=== PATIENT | female | born 1955 | race Caucasian/White ===

== ENCOUNTER 2022-05-28 09:07 | Outpatient (REF) | payer MEDICARE, MEDICAID, SELFPAY ==
[2022-05-28 11:20] LABS: MANUAL DIFF FLAG NO
[2022-05-28 11:43] LABS: Basophils Absolute Auto 0.1 X10*3/uL (0.0-0.2); Basophils Percent Auto 1.3 % (0-2); Eosinophils Absolute Auto 0.2 X10*3/uL (0.0-0.4); Eosinophils Percent Auto 4.3 % (0-4); Hemoglobin 13.1 g/dl (12.0-16.0); Imm Gran Abs Auto 0.02 X10*3/uL (0.00-0.03); Imm Gran Pct Auto 0.4 % (0.0-0.4); Lymphocytes Absolute Auto 1.4 X10*3/uL (1.2-4.9); Lymphocytes Percent Auto 30.5 % (20-40); Mean Corpuscular HGB Conc 32.8 g/dl (31.0-35.0); Mean Corpuscular Hemoglobin 29.4 pg (27.0-33.0); Mean Corpuscular Volume 89.7 fL (80.0-98.0); Mean Platelet Volume 8.9 fL (9.4-12.3); Monocytes Absolute Auto 0.3 X10*3/uL (0.1-1.2); Monocytes Percent Auto 7.3 % (2-11); Neutrophils Absolute Auto 2.6 x10*3/uL (2.0-8.3); Neutrophils Percent Auto 56.2 % (45-73); Platelet Count 352 X10*3/uL (160-400); Red Blood Count 4.46 X10*6/uL (4.20-5.50); Red Cell Distribution Width 12.6 % (11.0-16.0); White Blood Count 4.7 X10*3/uL (4.8-10.8)
[2022-05-28 11:57] LABS: Alanine Aminotransferase 10 U/L (0-31); Albumin Level 4.5 g/dL (3.5-5.0); Alkaline Phosphatase 55 U/L (39-117); Anion Gap 17 (12-20); Aspartate Amino Transferase 15 U/L (5-31); Bilirubin Total 0.4 mg/dL (0.0-1.0); Blood Urea Nitrogen 20 mg/dL (9-16); Calcium 9.5 mg/dL (8.4-10.2); Carbon Dioxide 24 mmol/L (22-29); Chloride 97 mmol/L (96-108); Cholesterol 193 mg/dL; Estimated Glomerular Filt Rate 50; Glucose Fasting 97 mg/dL (60-99); HDL Cholesterol 80 mg/dL; LDL Cholesterol Calculated 101 mg/dl; Potassium 4.8 mmol/L (3.3-5.1); Sodium 133 mmol/L (135-145); Total Protein 6.9 g/dL (6.5-8.0); Triglycerides 63 mg/dL
== END 2022-05-28 09:08 | disposition home or self-care (01) ==
LOC: HO.HMGCLDS 09:07
PROVIDERS: PCP Internal Medicine; Visit Provider Internal Medicine
DX: E78.5 Hyperlipidemia, unspecified (principal); I10 Essential (primary) hypertension; I73.9 Peripheral vascular disease, unspecified; Z85.3 Personal history of malignant neoplasm of breast
CPT/HCPCS: 36415; 80053; 80061; 82306; 85025

== ENCOUNTER 2022-11-09 10:02 | Outpatient (REF) | payer MEDICARE, MEDICAID, SELFPAY ==
[2022-11-09 11:39] LABS: MANUAL DIFF FLAG NO
[2022-11-09 11:50] LABS: Basophils Absolute Auto 0.1 X10*3/uL (0.0-0.2); Basophils Percent Auto 1.9 % (0-2); Eosinophils Absolute Auto 0.2 X10*3/uL (0.0-0.4); Eosinophils Percent Auto 5.7 % (0-4); Hematocrit 38.6 % (37.0-47.0); Hemoglobin 12.5 g/dl (12.0-16.0); Imm Gran Abs Auto 0.02 X10*3/uL (0.00-0.03); Imm Gran Pct Auto 0.5 % (0.0-0.4); Lymphocytes Absolute Auto 1.4 X10*3/uL (1.2-4.9); Lymphocytes Percent Auto 32.2 % (20-40); Mean Corpuscular HGB Conc 32.4 g/dl (31.0-35.0); Mean Corpuscular Hemoglobin 28.5 pg (27.0-33.0); Mean Corpuscular Volume 88.1 fL (80.0-98.0); Mean Platelet Volume 9.7 fL (9.4-12.3); Monocytes Absolute Auto 0.4 X10*3/uL (0.1-1.2); Monocytes Percent Auto 8.5 % (2-11); Neutrophils Absolute Auto 2.2 x10*3/uL (2.0-8.3); Neutrophils Percent Auto 51.2 % (45-73); Platelet Count 285 X10*3/uL (160-400); Red Blood Count 4.38 X10*6/uL (4.20-5.50); Red Cell Distribution Width 14.4 % (11.0-16.0); White Blood Count 4.2 X10*3/uL (4.8-10.8)
[2022-11-09 12:21] LABS: Alanine Aminotransferase 19 U/L (0-31); Anion Gap 12 (12-20); Aspartate Amino Transferase 20 U/L (5-31); Blood Urea Nitrogen 15 mg/dL (9-16); Calcium 9.2 mg/dL (8.4-10.2); Carbon Dioxide 24 mmol/L (22-29); Chloride 105 mmol/L (96-108); Cholesterol 195 mg/dL; Estimated Glomerular Filt Rate 56; Glucose Fasting 95 mg/dL (60-99); HDL Cholesterol 96 mg/dL; LDL Cholesterol Calculated 88 mg/dl; Potassium 4.5 mmol/L (3.3-5.1); Sodium 136 mmol/L (135-145); Triglycerides 58 mg/dL
== END 2022-11-09 10:03 | disposition home or self-care (01) ==
LOC: HO.HMGCLDS 10:02
PROVIDERS: PCP Internal Medicine; Visit Provider Internal Medicine
DX: I73.9 Peripheral vascular disease, unspecified (principal); I10 Essential (primary) hypertension; E78.5 Hyperlipidemia, unspecified
CPT/HCPCS: 36415; 80048; 80061; 84450; 84460; 85025

== ENCOUNTER 2023-03-04 09:20 | Outpatient (AMB) | payer MEDICARE, MEDICAID, SELFPAY ==
--- NOTE | 2023-03-04 09:21 | MHC.PC.OV ---
Vital Signs 03/04/23 09:23 BMI Reason not done Patient refused/unable BP 132/96 H Blood Pressure Location Lt brachial Position Sitting Pulse 73 Pulse Source Pulse Oximeter Pulse Oximetry (%) 99 Oxygen Delivery Method Room Air Intake Visit Reasons: [facility]-02/08-02/19-Closed fracture R leg Intake Note: Pt is here today to rehap f/u of a fracture R leg Allergies ceftriaxone Adverse Reaction (Verified 03/04/23 09:30) rash Medication List - Last Reconciled 03/04/23 by Wilma Reyes MD acetaminophen 1,000 mg PO Q6H PRN aspirin 325 mg PO DAILY atorvastatin 40 mg PO BEDTIME clopidogrel 75 mg PO DAILY doxycycline hyclate 100 mg PO BID metoprolol succinate ER 25 mg PO DAILY paroxetine HCl 20 mg PO DAILY Tobacco use date assessed: 03/04/23 Fall risk assessment: 1 Fall in past year Last assessed Fall Risk: 03/04/23 Dental Screening Dental Screen Date: 03/04/23 Did you have a dental visit in the last 12 months?: No Was dental information given to patient?: Patient declined HPI [facility]-02/08-02/19-Closed fracture R leg HPI Details 67-year-old lady with medical is history significant for hypertension, dyslipidemia, generalized anxiety disorder, peripheral vascular disease with iliac stent placement 2020, COPD and recently admitted for treatment of trimalleolar fracture in right ankle , here today for hospital follow-up. She underwent right ankle open reduction internal fixation on 01/2028, later found to be in atrial fibrillation with RVR and started on metoprolol 25 mg, and underwent a. successful MARTINA cardioversion on 02/07/2023. She was then started on Eliquis 5 mg b.i.d., in addition to her current dose of clopidogrel 75 mg daily, but she started having severe abdominal pain with passing bright red blood together with her stool . She also started having frequent spontaneous hematomas. Eliquis was discontinued and was maintained only on clopidogrel and started on aspirin 325 mg daily. She states that the bleed has stopped and her ecchymosis are slowly fainting, but she still feels weak and gets easily short of breath on exertion. . Her Blood pressure on metoprolol 25 mg once a day only has been running from between 144/88 to 118/68 with heart rate 63-87, over the last week PFSH Medical History Atrial fibrillation status post cardioversion Cervical cancer screening Dyslipidemia Eczema Essential hypertension Generalized anxiety disorder History of eczema History of PFTs History of vaginal dysplasia Hx of malignant neoplasm of breast Hypochromic anemia Mass of left lung PAD (peripheral artery disease) Personal history of long-term (current) use of anticoagulants Trimalleolar fracture of right ankle Unspecified atrial fibrillation Surgical History H/O vulvectomy Hx of colonoscopy S/P breast lumpectomy Status post ORIF of fracture of ankle Family History Mother Substance use disorder Mental health disorder Brother Essential hypertension Social History Housing: Apartment Patient Tobacco Use Status: Former Tobacco user e-Cigarette/Vaping Use: Never Used Current occupational status: retired Cognitive needs: No Hearing needs: No Vision needs: Yes Questionnaire Thrive Questionnaire Date Thrive assessed: 10/22/22 AUDIT C Alcohol Use Questionnaire (AUDIT-C) 1. How often do you have a drink containing alcohol?: Never Total Score: 0 BASIM-7 AMB Questionnaire BASIM-7 Date BASIM - 7 assessed: 10/22/22 Source: Developed by Drs. Luis Herrera, Destini Matias, Renny Esquivel and colleagues, with an educational inocencia from [employer]. Review of Systems Const Denies body aches, Denies fever(s), Denies headache(s) and Denies lethargy Eyes Denies change in vision ENT Reports no additional complaints, Reports dizziness and Denies headache(s) Card Denies chest pain, Denies lightheadedness and Denies dyspnea Resp Denies chest congestion and Denies dyspnea GI Denies abdominal pain, Denies change in bowel habits and Denies heartburn Denies urinary frequency, Denies dysuria and Denies urinary urgency Musc Reports no additional complaints and Denies tingling Skin/Breast Reports as per HPI Neuro Reports dizziness, Denies headache(s), Denies seizure-like activity and Denies tingling Psych Reports no additional complaints Endo Reports no additional complaints Syed/Lymph Reports no additional complaints Physical exam (Primary Care) Vital Signs: Last Vital Signs Pulse 73 03/04/23 09:23 BP 132/96 H 03/04/23 09:23 Pulse Ox 99 03/04/23 09:23 Oxygen Delivery Method Room Air 03/04/23 09:23 Tobacco/Smoking Status: Tobacco use Status Tobacco use date assessed 03/04/23 03/04/23 09:32 Patient Tobacco Use Status Former Tobacco user 03/04/23 09:32 e-Cigarette/Vaping Use Never Used 03/04/23 09:32 Thrive Assessment: Date of Thrive Assessment Date Thrive assessed 10/22/22 03/04/23 09:32 Advance Care Planning discussion: Completed/Scanned Date of discussion: 03/04/23 Who was present: patient/niece Forms completed: MOLST Time spent: 16-45 minutes Actual minutes spent: 16 Const General: comfortable, no acute distress, alert and awake Nutritional Appearance: average body habitus Orientation/consciousness: patient oriented x3 HENMT Face and sinus: Yes face symmetric Mouth: moist mucous membranes Eyes General: appearance normal, both eyes and all related structures Neck Neck: Yes full ROM, Yes no lymphadenopathy and Yes supple Resp Effort & Inspection: normal respiratory effort and able to speak in complete sentences Auscultation: clear to auscultation bilaterally Cardio Rate: regular rate Rhythm: regular rhythm Heart sounds: S1 normal heart sound present and S2 normal heart sound present GI Palpation (GI): Soft to palpation, nontender, no guarding and no masses Auscultation: normal bowel sounds Neuro General: patient oriented x3, moves all extremities, Normal light touch and pain sensation, no focal motor deficits and CN's II-XI intact bilaterally Extrem General: Yes full ROM, Yes no joint enlargement, Yes no pedal edema and Yes no calf tenderness Assessment and Plan Assessment & Plan (1) Unspecified atrial fibrillation: Code(s): I48.91 - Unspecified atrial fibrillation Plan: EKG done today showed normal sinus rhythm with no acute ST-T changes. Continued on metoprolol, Eliquis on hold due to GI bleed currently taking clopidogrel and aspirin 325 mg daily., cardiology consult obtained (2) Hypochromic anemia: Code(s): D50.9 - Iron deficiency anemia, unspecified Plan: Will repeat another CBC , vitamin B12 and iron profile (3) Trimalleolar fracture of right ankle: Code(s): S82.851A - Displaced trimalleolar fracture of right lower leg, initial encounter for closed fracture Plan: Followed by Dr. Crump at [facility] for further evaluation management. Currently getting physical therapy (4) Generalized anxiety disorder: Code(s): F41.1 - Generalized anxiety disorder Plan: Continue with paroxetine HCL 20 mg daily (5) PAD (peripheral artery disease): Comment: History of iliac stent placement in 2020 Code(s): I73.9 - Peripheral vascular disease, unspecified Plan: Currently on clopidogrel and 325 mg of aspirin daily (6) Dyslipidemia: Code(s): E78.5 - Hyperlipidemia, unspecified Plan: She had with atorvastatin 40 mg at bedtime (7) Essential hypertension: Code(s): I10 - Essential (primary) hypertension Plan: Blood pressure at goal of less than 130/80. Continue with current medication. Reinforced importance of following a low sodium diet, getting regular exercise, and lowering stress levels. (8) Postmenopause: Code(s): Z78.0 - Asymptomatic menopausal state Plan: Continue with staying active, taking adequate sources of calcium through dietary sources and take [id number] vitamin D3 at 2000 units daily. Orders: Orders Vitamin B12 and Folate 03/04/23 D50.9 - Iron deficiency anemia, unspecified, S82.851A - Displaced trimalleolar fracture of right lower leg, initial encounter for closed fracture, Z78.0 - Asymptomatic menopausal state IRON PROFILE 03/04/23 D50.9 - Iron deficiency anemia, unspecified, S82.851A - Displaced trimalleolar fracture of right lower leg, initial encounter for closed fracture, Z78.0 - Asymptomatic menopausal state Vitamin D 25-OH Total 03/04/23 D50.9 - Iron deficiency anemia, unspecified, S82.851A - Displaced trimalleolar fracture of right lower leg, initial encounter for closed fracture, Z78.0 - Asymptomatic menopausal state Complete Blood Count Auto Diff 03/04/23 D50.9 - Iron deficiency anemia, unspecified, S82.851A - Displaced trimalleolar fracture of right lower leg, initial encounter for closed fracture, Z78.0 - Asymptomatic menopausal state AMB EKG-In Office 03/04/23 I48.91 - Unspecified atrial fibrillation Referrals Cardiology Referral I48.91 - Unspecified atrial fibrillation, I73.9 - Peripheral vascular disease, unspecified Coding Level of Care Code Est Pt Level 4 (12826) Diagnoses Unspecified atrial fibrillation I48.91 Hypochromic anemia D50.9 Trimalleolar fracture of right ankle S82.851A Generalized anxiety disorder F41.1 PAD (peripheral artery disease) I73.9 Dyslipidemia E78.5 Essential hypertension I10 Postmenopause Z78.0 Additional Codes Vital Signs *Quality* - Advance Care Planning discussion: Completed/Scanned ([id number]) Vital Signs *Quality* - Time spent: 16-45 minutes ([id number])
[2023-03-04 09:23] VITALS: BP 132/96; PULSE 73; O2SAT 99
== END 2023-03-04 11:04 | disposition home or self-care (01) ==
PROVIDERS: PCP Internal Medicine; Visit Provider Internal Medicine
DX: I48.91 Unspecified atrial fibrillation (principal); S82.851A Displaced trimalleolar fracture of right lower leg, initial encounter for closed fracture; I73.9 Peripheral vascular disease, unspecified; Z71.89 Other specified counseling; I10 Essential (primary) hypertension; D50.9 Iron deficiency anemia, unspecified; F41.1 Generalized anxiety disorder; E78.5 Hyperlipidemia, unspecified; Z78.0 Asymptomatic menopausal state
CPT/HCPCS: 93000; 99214; 99497

== ENCOUNTER 2023-03-04 10:10 | Outpatient (REF) | payer MEDICARE, MEDICAID, SELFPAY ==
[2023-03-04 13:20] LABS: MANUAL DIFF FLAG NO
[2023-03-04 13:52] LABS: Basophils Absolute Auto 0.1 X10*3/uL (0.0-0.2); Basophils Percent Auto 0.7 % (0-2); Eosinophils Absolute Auto 0.2 X10*3/uL (0.0-0.4); Eosinophils Percent Auto 2.2 % (0-4); Hematocrit 27.7 % (37.0-47.0); Hemoglobin 8.7 g/dl (12.0-16.0); Imm Gran Abs Auto 0.05 X10*3/uL (0.00-0.03); Imm Gran Pct Auto 0.7 % (0.0-0.4); Lymphocytes Absolute Auto 1.1 X10*3/uL (1.2-4.9); Lymphocytes Percent Auto 15.7 % (20-40); Mean Corpuscular HGB Conc 31.4 g/dl (31.0-35.0); Mean Corpuscular Hemoglobin 26.2 pg (27.0-33.0); Mean Corpuscular Volume 83.4 fL (80.0-98.0); Mean Platelet Volume 8.6 fL (9.4-12.3); Monocytes Absolute Auto 0.5 X10*3/uL (0.1-1.2); Monocytes Percent Auto 6.9 % (2-11); Neutrophils Absolute Auto 5.1 x10*3/uL (2.0-8.3); Neutrophils Percent Auto 73.8 % (45-73); Platelet Count 489 X10*3/uL (160-400); Red Blood Count 3.32 X10*6/uL (4.20-5.50); Red Cell Distribution Width 15.1 % (11.0-16.0)
[2023-03-04 13:59] LABS: White Blood Count 6.9 X10*3/uL (4.8-10.8)
[2023-03-04 14:16] LABS: Alanine Aminotransferase 16 U/L (0-31); Anion Gap 20 (12-20); Aspartate Amino Transferase 18 U/L (5-31); Blood Urea Nitrogen 23 mg/dL (9-16); Calcium 10.1 mg/dL (8.4-10.2); Carbon Dioxide 18 mmol/L (22-29); Chloride 102 mmol/L (96-108); Cholesterol 133 mg/dL; Estimated Glomerular Filt Rate > 60; Glucose Fasting 95 mg/dL (60-99); HDL Cholesterol 50 mg/dL; Iron 8 mcg/dL (30-160); LDL Cholesterol Calculated 65 mg/dl; Percent Iron Saturation 3 % (15-50); Potassium 3.8 mmol/L (3.3-5.1); Sodium 136 mmol/L (135-145); Total Iron Binding Capacity 260 mcg/dL (228-428); Triglycerides 91 mg/dL; Unsaturated Iron Binding 252 ug/dL; Vitamin D 25-OH Total 37.9 ng/mL (>30)
[2023-03-04 14:28] LABS: Folate 7.8 ng/mL (> or = 4.0); Vitamin B12 418 pg/mL (200-900)
== END 2023-03-04 10:11 | disposition home or self-care (01) ==
LOC: HO.HMGCLDS 10:10
PROVIDERS: PCP Internal Medicine; Visit Provider Internal Medicine
DX: D50.9 Iron deficiency anemia, unspecified (principal); S82.851A Displaced trimalleolar fracture of right lower leg, initial encounter for closed fracture; E78.5 Hyperlipidemia, unspecified; I10 Essential (primary) hypertension; X58.XXXA Exposure to other specified factors, initial encounter; Y93.9 Activity, unspecified; Y92.9 Unspecified place or not applicable; Y99.9 Unspecified external cause status; Z78.0 Asymptomatic menopausal state
CPT/HCPCS: 36415; 80048; 80061; 82306; 82607; 82746; 83540; 84450; 84460; 85025

== ENCOUNTER 2023-05-16 10:57 | Outpatient (REF) | payer MEDICARE, MEDICAID, SELFPAY ==
[2023-05-16 13:35] LABS: MANUAL DIFF FLAG NO
[2023-05-16 13:47] LABS: Basophils Absolute Auto 0.1 X10*3/uL (0.0-0.2); Basophils Percent Auto 1.7 % (0-2); Eosinophils Absolute Auto 0.2 X10*3/uL (0.0-0.4); Eosinophils Percent Auto 4.2 % (0-4); Hemoglobin 12.5 g/dl (12.0-16.0); Imm Gran Abs Auto 0.02 X10*3/uL (0.00-0.03); Imm Gran Pct Auto 0.4 % (0.0-0.4); Lymphocytes Absolute Auto 1.1 X10*3/uL (1.2-4.9); Lymphocytes Percent Auto 21.3 % (20-40); Mean Corpuscular HGB Conc 30.5 g/dl (31.0-35.0); Mean Corpuscular Hemoglobin 26.8 pg (27.0-33.0); Mean Corpuscular Volume 87.8 fL (80.0-98.0); Mean Platelet Volume 9.5 fL (9.4-12.3); Monocytes Absolute Auto 0.4 X10*3/uL (0.1-1.2); Monocytes Percent Auto 7.8 % (2-11); Neutrophils Absolute Auto 3.4 x10*3/uL (2.0-8.3); Neutrophils Percent Auto 64.6 % (45-73); Platelet Count 326 X10*3/uL (160-400); Red Blood Count 4.67 X10*6/uL (4.20-5.50); Red Cell Distribution Width 16.6 % (11.0-16.0); White Blood Count 5.3 X10*3/uL (4.8-10.8)
[2023-05-16 14:08] LABS: Iron 37 mcg/dL (30-160); Percent Iron Saturation 14 % (15-50); Total Iron Binding Capacity 265 mcg/dL (228-428); Unsaturated Iron Binding 228 ug/dL
== END 2023-05-16 10:58 | disposition home or self-care (01) ==
LOC: HO.HMGCLDS 10:57
PROVIDERS: PCP Internal Medicine; Visit Provider Internal Medicine
DX: D50.9 Iron deficiency anemia, unspecified (principal)
CPT/HCPCS: 36415; 83540; 85025

== ENCOUNTER 2023-06-24 11:38 | Outpatient (AMB) | payer MEDICARE, MEDICAID, SELFPAY ==
--- NOTE | 2023-06-24 11:48 | A.OFFPC_ITS ---
Vital Signs 06/24/23 11:49 Height 5 ft 2 in Weight 131 lb 2 oz BMI 24.0 BP 182/100 H Blood Pressure Location Lt brachial Position Sitting Pulse 56 Pulse Source Pulse Oximeter Pulse Oximetry (%) 100 Oxygen Delivery Method Room Air Intake Visit Reasons: 3M Follow up lipids, htn, anxiety, anemia Intake Note: pt is here for her results and her anxiety Allergies ceftriaxone Adverse Reaction (Verified 10/14/23 02:57) rash Medication List - Last Reconciled 06/24/23 by Wilma Reyes MD acetaminophen 1,000 mg PO Q6H PRN aspirin 325 mg PO DAILY atorvastatin 40 mg PO BEDTIME clopidogrel 75 mg PO DAILY metoprolol succinate ER 25 mg PO DAILY paroxetine HCl 20 mg PO DAILY Tobacco use date assessed: 06/24/23 Fall risk assessment: 1 Fall in past year Last assessed Fall Risk: 06/24/23 Dental Screening Dental Screen Date: 06/24/23 Did you have a dental visit in the last 12 months?: No Did you have a dental problem in the last 6 months where you did not have access to dental care?: No Was dental information given to patient?: No HPI 3M Follow up lipids, htn, anxiety, anemia HPI Details 67-year-old lady sarika ere today for her follow up . She h as hypertension, with Blood pressur e elevated on toda y's visit. She pr eviously was on am lodipine and losar riddle February 2023 but was discontinued d ue to development hypotension and li ghtheadedness scan was just continue d on metoprolol ER 25 mg daily. As per [facility]NA is home bl ood pressure readi ngs her blood pres sure has been aver aging around 120/8 0 at home. She h as dyslipidemia, w ith recent lipid s table and controll ed on atorvastatin 40 mg daily. Cur rently on paroxeti ne 20 mg daily for generalized anx iety disorder, whi ch is stable and c ontrolled on prese nt treatment. Janeen hirsch is currently fol lowed at [facility] for her p eripheral vascular disease , s/p kvng ac stent placement 2020. Sustained a trimalleolar fr acture in right an kle s/p ORIF on . She alread y completed Home PT/ OT . During her admission for her fracture, she was found to be in atrial fibrillati on with RVR , unde rwent successful T EE cardioversion o n 02/07/2023, and to was placed on on Eliquis 5 mg b.i. d., in addition to her current dose of clopidogrel 75 mg daily, but Liana suma later discon tinued due to pas sing bright red bl ood in her stool and development of spontaneous syed jyotsna. She was m aintained only on clopidogrel and st arted on aspirin 3 25 mg daily, with resolution of GI bleed and spontane ous ecchymosis Had recent fasting labs done which s howed lipids withi n normal limits an d no anemia presen t, with normal iro n profile . [facility] Medical History Hypochromic anemia Atrial fibrillation status post cardioversion Personal history of long-term (current) use of anticoagulants Unspecified atrial fibrillation Trimalleolar fracture of right ankle Cervical cancer screening History of eczema Eczema History of PFTs Mass of left lung Generalized anxiety disorder PAD (peripheral artery disease) Hx of malignant neoplasm of breast History of vaginal dysplasia Dyslipidemia Essential hypertension Surgical History Status post ORIF of fracture of ankle S/P breast lumpectomy H/O vulvectomy Hx of colonoscopy Family History Mother Substance use disorder Mental health disorder Brother Essential hypertension Social History (Updated 10/14/23 @ 02:53 by Wilma Reyes MD) Household Members: None Housing: Apartment Do you presently have visiting nurse or other home services: No Alcohol intake: current Patient Tobacco Use Status: Former Tobacco user Quit Date: 3 years ago Tobacco use type: Cigarette Cigarette Packs Per Day: 1 Cigarettes Per Day: 20.0 Years Smoked: 25 e-Cigarette/Vaping Use: Never Used Substance Use Type: Marijuana Advance Directives Date on File: 03/04/23 service: No Current occupational status: retired Cognitive needs: No Hearing needs: No Vision needs: Yes Questionnaire Thrive Questionnaire Date Thrive assessed: 10/22/22 AUDIT C Alcohol Use Questionnaire (AUDIT-C) 1. How often do you have a drink containing alcohol?: 2-4 times a month 2. How many drinks containing alcohol do you have on a typical day when you are drinking?: 3 or 4 3. How often do you have six or more drinks on one occasion?: Never Total Score: 3 Score Reviewed/Action Taken: Yes BASIM-7 AMB Questionnaire BASIM-7 Date BASIM - 7 assessed: 06/24/23 Feeling nervous, anxious, or on edge: 0 = Not at all Not being able to stop or control worryin = Not at all Worrying too much about different things: 1 = Several days Trouble relaxin = Not at all Being so restless that it is hard to sit still: 0 = Not at all Becoming easily annoyed or irritable: 0 = Not at all Feeling afraid as if something awful might happen: 0 = Not at all Total BASIM-7 score (0-4 normal; 5-9 mild; 10-14 moderate; 15-21 severe): 1 Source: Developed by Drs. Luis Herrera, Destini Matias, Renny Esquivel and colleagues, with an educational inocencia from [employer]. BASIM-7 Assessment Billing BASIM-7 Assessment Tool: BASIM-7 Assessment 28325 Review of Systems Const Denies chills, Denies daytime sleepiness, Denies fatigue, Denies fever(s), Denies night sweats, Denies weakness, Denies weight gain and Denies weight loss Eyes Denies change in vision ENT Denies dizziness and Denies hearing loss Card Denies chest pain, Denies chest pain with activity, Denies edema, Denies claudication, Denies lightheadedness and Denies palpitations Resp Denies cough GI Denies abdominal pain, Denies hematochezia, Denies change in bowel habits, Denies heartburn and Denies nausea Denies hematuria, Denies urinary frequency and Denies dysuria Musc Denies arthralgias, Denies muscle weakness, Denies numbness and Denies tingling Skin/Breast Denies rash and Denies unusual bruising Neuro Denies dizziness, Denies numbness, Denies tingling and Denies weakness Psych Reports no additional complaints Endo Denies fatigue and Denies palpitations Syed/Lymph Reports easy bruising Aller/Immun Denies seasonal rhinorrhea Physical exam (Primary Care) Vital Signs: Last Vital Signs Pulse 56 06/24/23 11:49 BP 182/100 H 06/24/23 11:49 Pulse Ox 100 11/17/23 11:49 Oxygen Delivery Method Room Air 06/24/23 11:49 BMI result Body Mass Index 24.0 Tobacco/Smoking Status: Tobacco use Status Tobacco use date assessed 06/24/23 06/24/23 11:58 Patient Tobacco Use Status Former Tobacco user 06/24/23 11:48 e-Cigarette/Vaping Use Never Used 06/24/23 11:48 Thrive Assessment: Date of Thrive Assessment Date Thrive assessed 10/22/22 06/24/23 11:48 Const General: no acute distress and alert Nutritional Appearance: average body habitus Orientation/consciousness: patient oriented x3 HENMT Face and sinus: Yes face symmetric Mouth: moist mucous membranes Eyes General: appearance normal, both eyes and all related structures Neck Neck: Yes full ROM, Yes no lymphadenopathy and Yes supple Resp Effort & Inspection: normal respiratory effort and able to speak in complete sentences Auscultation: clear to auscultation bilaterally Cardio Rate: regular rate Rhythm: regular rhythm Heart sounds: S1 normal heart sound present and S2 normal heart sound present GI Palpation (GI): Soft to palpation, nontender, no guarding and no masses Auscultation: normal bowel sounds General: Yes no CVA tenderness Back/Spine/Pelvis Back: no CVA tenderness and No back tenderness Skin General skin exam: no rashes or lesions noted Neuro General: patient oriented x3, moves all extremities, Normal light touch and pain sensation, no focal motor deficits and CN's II-XI intact bilaterally Extrem General: Yes full ROM, Yes no joint enlargement, Yes no pedal edema and No calf tenderness Psych Appearance: well kempt Mental Status: mental status grossly normal Speech and movement: Normal speech and movement present Affect: normal affect Results Reviewed Results Reviewed: RUN: 06/24/23 1200 PAGE 1 [facility] [address] [place] [id number] Feature Writer: Michele Lawson M.D. Specimen Inquiry Name: Melita Sanz Age/Sex: 67/F : 1955 Unit#: [id number] Attend Dr: Wilma Reyes MD Re05/16/23 Status: DEP REF Location: [facility] Disch: SPEC : [id number] BAIRON: 05/16/23 STATUS: COMP REQ : [id number] RECD: 05/16/[address]: Wilma Reyes MD COMP: 05/16/23 ENTERED: 05/16/[address]: ORDERED: CBC Auto Diff Test Result Flag Reference Site WBC 5.3 4.8-10.8 X10*3/uL RBC 4.67 # 4.20-5.50 X10*6/uL HGB 12.5 # 12.0-16.0 g/dl HCT 41.0 # 37.0-47.0 % MCV 87.8 80.0-98.0 fL MCH 26.8 L 27.0-33.0 pg MCHC 30.5 L 31.0-35.0 g/dl RDW 16.6 H 11.0-16.0 % PLT 326 # 160-400 X10*3/uL RUN: 06/24/23 1203 PAGE 1 [facility] [address] [place] [id number] Feature Writer: Michele Lawson M.D. Specimen Inquiry Name: Melita Sanz Age/Sex: 67/F : 1955 Unit#: [id number] Attend Dr: Wilma Reyes MD Re05/16/23 Status: DEP [facility]F [facility] Disch: SPEC : [id number] BAIRON: 05/16/23 STATUS: COMP REQ : [id number] RECD: 05/16/[address]: Wilma Reyes MD COMP: 05/16/238 ENTERED: 05/16/[address]: ORDERED: IRON PROF Test Result Flag Reference Site Iron 37 30-160 mcg/dL TIBC 265 228-428 mcg/dL Saturation 14 L 15-50 % UIBC 228 ug/dL ENTERED: 03/04/23-[address]: ORDERED: Met Prof Fast, IRON PROF, AST, ALT, Lipid Panel, Vitamin D 25-OH Test Result Flag Reference Site Sodium 136 135-145 mmol/L Potassium 3.8 3.3-5.1 mmol/L CL 102 96-108 mmol/L CO2 18 L 22-29 mmol/L Gap 20 12-20 BUN 23 H 9-16 mg/dL Creat 0.79 0.5-1.4 mg/dL EGFR > 60 NOTE: For -[place] individuals, multiply the result by 1.210. Chronic Kidney Disease: Estimated GFR < 60 mL/min/1.73m2 Severe Kidney Disease: Estimated GFR < 15 mL/min/1.73m2 FBS 95 60-99 mg/dL CA 10.1 # 8.4-10.2 mg/dL Iron 8 L 30-160 mcg/dL TIBC 260 228-428 mcg/dL Saturation 3 L 15-50 % UIBC 252 ug/dL AST (GOT) 18 5-31 U/L ALT (GPT) 16 0-31 U/L Triglyceride 91 mg/dL Desirable Triglyceride: less than 150 mg/dL Borderline High Triglyceride 150-199 mg/dL High Triglyceride: 200-499 mg/dL Very High Triglyceride: greater than or equal to 5OO mg/dL Chol 133 mg/dL Desirable Cholesterol: less than 200 mg/dL Borderline High Cholesterol: 200-239 mg/dL High Cholesterol: greater than 239 mg/dL LDL Calculated 65 mg/dl Desirable LDL: less than 100 mg/dL Near Optimal/Above Optimal LDL: 110-129 mg/dL Borderline High LDL: 130-159 mg/dL High LDL: 160-189 mg/dL Very High LDL: greater than or equal to 190 mg/dL HDL 50 mg/dL Desirable HDL: greater than 40 mg/dL Note: This HDL assay may give artificially low results in patients with liver disease. Vit D 25-OH Tot 37.9 >30 ng/mL Health Based Reference Values* < 20 ng/mL Deficient 20-30 ng/mL Insufficient > 30 ng/mL Sufficient Assessment and Plan Assessment & Plan (1) Essential hypertension: Code(s): I10 - Essential (primary) hypertension Plan: Blood pressure elevated today, patient however brought her blood pressure readings from her [facility] over the last several weeks and has been running between 118/68 to 140/88 at the highest, averaging 120 over 80 when checked at home, with heart rate ranging from between 61-87 over the last week, on metoprolol ER 25 mg once a day. Patient states that she has been diagnosed to have white coat hypertension in the past. Previously was on amlodipine and losartan, February 2023 but this was discontinued due to development of hypotension and dizziness. Will continue on current dose of metoprolol succinate ER 25 mg daily, and stressed importance of following a low-salt diet. Advised to see nurse navigator in 2 days to check blood pressure in clinic (2) Unspecified atrial fibrillation: Code(s): I48.91 - Unspecified atrial fibrillation Qualifiers: Atrial fibrillation type: unspecified Qualified Code(s): I48.91 - Unspecified atrial fibrillation Plan: Currently on aspirin 325 mg daily, continue with metoprolol ER. Patient already has an appointment scheduled to see Cardiology in August 2023. Has been taken off of Eliquis due to GI bleed and development of spontaneous ecchymosis, which has now resolved. (3) PAD (peripheral artery disease): Comment: History of iliac stent placement in 2020 Code(s): I73.9 - Peripheral vascular disease, unspecified Plan: Recently had a telehealth visit with [facility] , spoke with Enedina Marvin NP 2 days ago , reviewed her recent testing showing patent see of stents bilaterally with CHRISTI showing some calcific arteriopathy with noncompressible vessels, and continued on dual anti-platelet therapy with aspirin 81 mg daily and clopidogrel as well as continued on atorvastatin 40 mg daily. Repeat CHRISTI in this is an aortoiliac duplex scan in a year (4) Dyslipidemia: Code(s): E78.5 - Hyperlipidemia, unspecified Plan: Reviewed recent fasting lipid profile with patient with LDL cholesterol at goal of less than 70 mg/dL . Continue with atorvastatin 40 mg daily , in addition to adherence to low-cholesterol diet and regular exercise, at least 30 minutes 3 to 4 times a week. Advised patient to make healthy food choices, eat more fruits, vegetables, whole grains, wild caught fish and low-fat dairy. Limit amount of meat and fried or fatty food products, as well as processed foods and fast foods. Follow-up scheduled with repeat fasting lipid panel in 6 months. (5) Generalized anxiety disorder: Code(s): F41.1 - Generalized anxiety disorder Plan: Patient states anxiety stable controlled on current dose of paroxetine HCL continued on 20 mg daily Coding Level of Care Code Est Pt Level 4 (04853) Diagnoses Essential hypertension I10 Atrial fibrillation, unspecified type I48.91 Atrial fibrillation type: unspecified PAD (peripheral artery disease) I73.9 Dyslipidemia E78.5 Generalized anxiety disorder F41.1 Additional Codes BASIM-7 Assessment Billing - BASIM-7 Assessment Tool: BASIM-7 Assessment 47627 ([id number])
[2023-06-24 11:49] VITALS: BP 182/100; PULSE 56; O2SAT 100; BMI 24.0
== END 2023-06-24 12:22 | disposition home or self-care (01) ==
PROVIDERS: PCP Internal Medicine; Visit Provider Internal Medicine
DX: I10 Essential (primary) hypertension (principal); I48.91 Unspecified atrial fibrillation; I73.9 Peripheral vascular disease, unspecified; E78.5 Hyperlipidemia, unspecified; F41.1 Generalized anxiety disorder
CPT/HCPCS: 99214

== ENCOUNTER 2023-08-17 14:42 | Outpatient (AMB) | payer MEDICARE, MEDICAID, SELFPAY ==
--- NOTE | 2023-08-17 14:46 | MHC.OFFVIS ---
Intake Vital Signs 08/17/23 14:48 Height 5 ft 2 in Weight 130 lb 1.164 oz BMI 23.8 BP 188/110 H Blood Pressure Location Lt brachial Position Sitting Pulse 58 Intake Visit Reasons: NPV/Afib/A.Espinas Intake Note: NPV Supplier Manager Required: No Accompanied by: Self / Same As Patient Allergies ceftriaxone Adverse Reaction (Verified 08/17/23 14:48) rash Medication List - Last Reconciled 08/17/23 by Morgan Dockery MD acetaminophen 1,000 mg PO Q6H PRN aspirin 325 mg PO DAILY atorvastatin 40 mg PO BEDTIME clopidogrel 75 mg PO DAILY metoprolol succinate ER 25 mg PO DAILY paroxetine HCl 20 mg PO DAILY HPI HPI Comments History of Present Illness Details Melita is here for consultation regarding atrial fibrillation. 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 Available [facility] records reviewed. It seems that she was at [facility] last summer for right ankle fracture. In this context, seems she underwent surgery. Then some prior to getting discharged, she went into atrial fibrillation rapid rate and also developed hypotension. Then she went for MARTINA/cardioversion and went back to sinus rhythm. Then put on Eliquis but apparently patient was bleeding a lot as she has skin issues. Then Eliquis was subsequently stopped after some time. She is still on a combination of full-dose aspirin and Plavix and she states that she gets a full dose aspirin from Ortho. Plavix might be through vascular surgery. She also has a history of iliac artery stenting. Otherwise, within limits of her activity she has not noticed any clear-cut chest pain or shortness of breath or other major cardiac symptoms. However looking at her history there is a high likelihood of underlying coronary disease. With regard to atrial fibrillation itself, it seems she has been stable. Otherwise, blood pressure is quite high today. However, she has brought a home diary and looking at those readings, heart of them actually normal. Hence not clear if she is going up and down. Looking at [facility] records, she has been on amlodipine and losartan but that was stopped at the time of discharge due to low blood pressure. [facility] Medical History (Updated 08/17/23 @ 15:42 by Morgan Dockery MD) Hypochromic anemia Atrial fibrillation status post cardioversion Personal history of long-term (current) use of anticoagulants Unspecified atrial fibrillation Trimalleolar fracture of right ankle Cervical cancer screening History of eczema Eczema History of PFTs Mass of left lung Generalized anxiety disorder PAD (peripheral artery disease) Hx of malignant neoplasm of breast History of vaginal dysplasia Dyslipidemia Essential hypertension Surgical History Status post ORIF of fracture of ankle S/P breast lumpectomy H/O vulvectomy Hx of colonoscopy Family History Mother Substance use disorder Mental health disorder Brother Essential hypertension Social History Housing: Apartment Patient Tobacco Use Status: Former Tobacco user e-Cigarette/Vaping Use: Never Used Current occupational status: retired Cognitive needs: No Hearing needs: No Vision needs: Yes Review of Systems Const Denies chills, Denies daytime sleepiness, Denies fatigue, Denies fever(s), Denies frequent falls, Denies night sweats, Denies snoring, Denies weakness, Denies weight gain and Denies weight loss Eyes Denies loss of vision ENT Denies dizziness and Denies hearing loss Card Denies chest pain, Denies chest pain with activity, Denies syncope, Denies rapid heart rate, Denies edema, Denies claudication, Denies leg edema, Denies lightheadedness, Denies palpitations and Denies orthopnea Resp Denies cough, Denies excessive phlegm production, Denies snoring and Denies wheezing GI Denies abdominal pain, Denies hematochezia, Denies change in bowel habits, Denies change in stool character, Denies heartburn, Denies nausea and Denies vomiting Denies hematuria, Denies urinary frequency and Denies dysuria Musc Denies arthralgias, Denies muscle weakness, Denies numbness and Denies tingling Skin/Breast Denies nail changes and Denies rash Neuro Denies Abnormal speech present, Denies dizziness, Denies syncope, Denies frequent falls, Denies loss of vision, Denies memory loss, Denies numbness, Denies tingling and Denies weakness Psych Denies depression and Denies memory loss Endo Denies fatigue and Denies palpitations Aller/Immun Denies wheezing Physical Exam Vital Signs: Last Vital Signs Pulse 58 08/17/23 14:48 BP 188/110 H 08/17/23 14:48 BMI result Body Mass Index 23.8 Const General: comfortable and no acute distress Orientation/consciousness: patient oriented x3 HEENT Other: Unremarkable Head: Yes normal to inspection Neck Neck: Yes normal visual inspection Chest Chest palpation & inspection: normal inspection of the chest Resp Auscultation: clear to auscultation bilaterally Cardio Other: Weak radial pulses Palpation: normal PMI Heart sounds: S1 normal heart sound present, S2 normal heart sound present, no gallops, no murmurs and no rubs GI Palpation (GI): Soft to palpation Back/Spine/Pelvis Other: unremarkable Skin General skin exam: no rashes or lesions noted Neuro General: patient oriented x3 Speech: No Abnormal speech present Extrem General: Yes normal to inspection Psych Mental Status: mental status grossly normal Assessment & Plan Assessment & Plan (1) PAF (paroxysmal atrial fibrillation): Code(s): I48.0 - Paroxysmal atrial fibrillation Plan: History of MARTINA/cardioversion in February 2023. She remains on beta-blockers and that can be continued as she is stable in that regard. With regard to anticoagulation, history of bleeding from skin but not clear if this is because of taking multiple drugs including Eliquis/Plavix/aspirin. We will do a Holter to see if she is having recurrent atrial fibrillation would prefer that we stop all her other meds like aspirin Plavix and just keep only on Eliquis. To be decided. (2) Atherosclerotic cardiovascular disease: Code(s): I25.10 - Atherosclerotic heart disease of [place] coronary artery without angina pectoris Plan: History of bilateral iliac stenting. High likelihood of underlying coronary disease as well. Clinically, no overt symptoms. Obtain myocardial perfusion imaging study. (3) Essential hypertension: Code(s): I10 - Essential (primary) hypertension Plan: Blood pressure is quite high. Looking at home readings, there are lot of normal blood pressure readings 2. Hence not clear if she is having labile blood pressures. Per [facility] discharge summary, amlodipine and losartan were stopped because of low blood pressure after having atrial fibrillation. There is also prior documentation of taking lisinopril. For now, resume amlodipine 5 mg daily. To monitor home blood pressure and get back to us. Plan Total time spent including review of data from [facility], counseling, documentation, coordination of care-62 minutes. Orders: Orders CA echo transthoracic complete Today I25.10 - Atherosclerotic heart disease of [place] coronary artery without angina pectoris ECG 7 day holter monitor Today I48.0 - Paroxysmal atrial fibrillation, R00.2 - Palpitations CA lexiscan stress w [place] Today I20.9 - Angina pectoris, unspecified NM cardiolite stress test Today R07.2 - Precordial pain Medications: New amlodipine 5 mg PO DAILY 90 tabs 3RF Coding Level of Care Code New Pt Level 5 (69479) Diagnoses PAF (paroxysmal atrial fibrillation) I48.0 Atherosclerotic cardiovascular disease I25.10 Essential hypertension I10
[2023-08-17 14:48] VITALS: BP 188/110; PULSE 58; BMI 23.8
== END 2023-08-17 15:22 | disposition home or self-care (01) ==
PROVIDERS: PCP Internal Medicine; Visit Provider Internal Medicine
DX: I48.0 Paroxysmal atrial fibrillation (principal); I25.10 Atherosclerotic heart disease of native coronary artery without angina pectoris; I10 Essential (primary) hypertension
CPT/HCPCS: 99205

== ENCOUNTER → 2023-08-17 14:42 | Outpatient (BNVA) | payer MEDICARE, MEDICAID, SELFPAY | PROVIDERS: PCP Internal Medicine; Visit Provider Internal Medicine | DX: I48.0 Paroxysmal atrial fibrillation (principal); I25.10 Atherosclerotic heart disease of native coronary artery without angina pectoris; I10 Essential (primary) hypertension | CPT/HCPCS: 99202 ==

== ENCOUNTER 2023-09-27 17:47 | Inpatient (IN) | payer MEDICARE, OTHER, SELFPAY ==
--- NOTE | ~2023-09-27 | US_ITS ---
EXAMINATION: US ABDOMEN LIMITED CLINICAL INFORMATION: Transaminitis. Septic shock. Question ascending cholangitis.. COMPARISON: Previous abdominal ultrasound September 27 2023 TECHNIQUE: Real-time imaging of the gallbladder FINDINGS: Gallbladder normal in size. The gallbladder wall is thickened and edematous and slightly irregular. Gallbladder wall measures up to 1 cm. New from 09/27/2023 exam No gallstones are seen. Common bile duct caliber measuring 0.6 cm. There is a small amount of ascites. Bidirectional flow in main portal vein incidentally noted. US/US abdomen limited IMPRESSION: New thickened edematous and irregular gallbladder wall. Differential would include cholangitis, gallbladder wall changes related to liver disease and acalculus cholecystitis. Follow-up HIDA scan may be helpful. No gallstone seen.
--- NOTE | ~2023-09-27 | CT_ITS ---
EXAMINATION: CT HEAD WITHOUT CONTRAST CLINICAL INFORMATION: Altered mental status. COMPARISON: CT head from 01/21/2008. TECHNIQUE: Contiguous axial imaging was performed from the skull base to vertex without intravenous administration of contrast. This CT examination was performed using dose optimization techniques as appropriate, variously including the following: *Automated exposure control. *Adjustment of mA and/or kV according to patient size (this includes techniques or standardized protocols for targeted exams where dose is matched to indication/reason for exam; i.e. extremities or head). *Use of iterative reconstruction technique. DLP: 821 mGy-cm FINDINGS: Moderately motion degraded exam. There is no evidence of acute intracranial hemorrhage or edematous territorial infarction. Toscano-white matter differentiation is preserved. 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 A few foci of hypoattenuation in the periventricular and deep white matter are consistent with mild microangiopathy. The ventricles are normal in morphology and size. No evidence for obstructive hydrocephalus. No abnormal mass effect or midline shift. No extra-axial fluid collections. Calcific atherosclerotic disease of the intracranial internal carotid and vertebral arteries. No hyperdense vessel sign. No acute soft tissue or osseous abnormalities. The mastoid air cells and visualized paranasal sinuses are clear. CT/CT head/brain wo IV con IMPRESSION: 1. No evidence of acute intracranial hemorrhage or edematous territorial infarction. 2. 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 3. Mild underlying microangiopathy and generalized cerebral volume loss.
--- NOTE | ~2023-09-27 | XR_ITS ---
EXAMINATION: XR CHEST CLINICAL INFORMATION: Tachypnea. COMPARISON: None available. TECHNIQUE: Frontal view of the chest was obtained. FINDINGS: The cardiac silhouette appears to be enlarged. There are layering bilateral lung base opacities with faint basilar opacities greater on the left. The upper lung wharton are clear. The bony structures are unremarkable. There are surgical soft tissue surgical clips bilaterally. XR/XR chest 1V IMPRESSION: 1. Enlarged cardiac silhouette. 2. Layering bilateral lung base opacities likely representing small bilateral pleural effusions with associated atelectasis/infiltrate.
--- NOTE | ~2023-09-27 | US_ITS ---
EXAMINATION: US ABDOMEN LIMITED CLINICAL INFORMATION: Elevated LFTs. COMPARISON: None available. TECHNIQUE: Real-time imaging of the right upper quadrant abdominal viscera. FINDINGS: PANCREAS: This lies portions of pancreas unremarkable. No pancreatic ductal dilatation. LIVER: Normal. The liver is normal in size. The liver contour is normal. Parenchymal echogenicity is normal. No focal hepatic lesion. There is no intrahepatic biliary duct dilatation seen. GALLBLADDER: Normal. The gallbladder is physiologically distended without evidence of stones, sludge, polyps, wall thickening or pericholecystic fluid. COMMON BILE DUCT: Normal in caliber measuring 0.2 cm in diameter. RIGHT KIDNEY: Atrophic with cortical thinning. No hydronephrosis. No renal calculi or focal parenchymal lesions. The kidney measures 6.3 cm in maximum dimension. FREE FLUID: None. US/US abdomen limited IMPRESSION: No acute intra-abdominal process seen. Atrophic right kidney.
[2023-09-27 18:14] VITALS: BP 133/75; PULSE 83; RESP 18; TEMP 37.2; BMI 17.1
--- NOTE | 2023-09-27 18:17 | ED_ITS ---
HPI - General Adult General Chief complaint: Dizziness Stated complaint: digital sales executive sent over/blood thinners Time Seen by Provider: 09/27/23 18:53 Source: patient and family Mode of arrival: ambulatory Limitations: no limitations History of Present Illness HPI narrative: Patient comes to the emergency room complaining of multiple episodes of nasal, hematuria, vomiting blood, rectal bleeding for about 3 weeks. Patient states that a few months ago she was started on Eliquis for atrial fibrillation. Patient states that now she feels very weak, lightheaded and confused. Patient denies any recent falls. According to the patient's family who is at bedside, she has usually not confused, but today they have to help her out to give the history because patient states she feels a bit fuzzy. Patient denies any chest pain. Patient complains of shortness of breath with exertion. Related Data Home Medications Medication Instructions Recorded Confirmed clopidogrel 75 mg tablet 75 mg PO DAILY 04/30/22 09/27/23 apixaban 5 mg tablet (Eliquis) 5 mg PO BID 09/27/23 09/27/23 furosemide 20 mg tablet 20 mg PO DAILY 09/27/23 09/27/23 metoprolol succinate 50 mg 50 mg PO DAILY 09/27/23 09/27/23 tablet,extended release 24 hr Previous Rx's Medication Instructions Recorded paroxetine HCl 20 mg tablet 20 mg PO DAILY #90 tabs 10/22/22 atorvastatin 40 mg tablet 40 mg PO BEDTIME #90 tabs 04/20/23 Allergies Allergy/AdvReac Type Severity Reaction Status Date / Time ceftriaxone AdvReac rash Verified 08/17/23 14:48 Review of Systems 2 Review of Systems: Constitutional : No Weight loss, No Fever, No Chills, No Night Sweats, complaining of fatigue ENT/Mouth : No Hearing loss, No Ear Pain, No Nasal Congestion, No Sinus Pain, No Hoarseness, No sore throat, No Rhinorrhea, No Swallowing Difficulty Eyes: No Eye Pain, No Swelling, No Redness, No Foreign Body, No Discharge, No Vision Changes Cardiovascular : No Chest Pain, No SOB, complaining of Dyspnea on Exertion, No Orthopnea, No Edema, No Palpitations Respiratory : No Cough, No Sputum, No Wheezing, No Smoke Exposure, No Dyspnea Gastrointestinal : No Nausea, No Vomiting, No Diarrhea, No Constipation, No abdominal Pain, complaining of bright red blood per rectum Genitourinary : no irregular bleeding, No Dysuria, No Urinary Frequency, complaining of painless Hematuria, No Urinary Incontinence, No Urgency, No Flank Pain, No Urinary Flow Changes, No Hesitancy Musculoskeletal : No joint pain, No Myalgias, No Joint Swelling Skin : No Skin Lesions, No rash Neuro : No Weakness, No Numbness, No Paresthesias, No Loss of Consciousness, No Dizziness, No Headache Psych : No Anxiety/Panic, No Depression, No SI/HI/AH/VH, No Social Issues, Heme/Lymph: No Bruising, No Bleeding,No Lymphadenopathy Endocrine : No Polyuria, No Polydipsia, No Temperature Intolerance COUNT INCLUDES THE [facility] Past Medical History Medical History Hypochromic anemia Atrial fibrillation status post cardioversion Personal history of long-term (current) use of anticoagulants Unspecified atrial fibrillation Trimalleolar fracture of right ankle Cervical cancer screening History of eczema Eczema History of PFTs Mass of left lung Generalized anxiety disorder PAD (peripheral artery disease) Hx of malignant neoplasm of breast History of vaginal dysplasia Dyslipidemia Essential hypertension Surgical History Status post ORIF of fracture of ankle S/P breast lumpectomy H/O vulvectomy Hx of colonoscopy Family History Family History Mother Substance use disorder Mental health disorder Brother Essential hypertension Social History Social History Housing: Apartment Alcohol intake: former Patient Tobacco Use Status: Former Tobacco user Smoked in Last 30 Days: No e-Cigarette/Vaping Use: Never Used Use of substances other than those prescribed or required for medical reasons: No Advance Directives: Yes Advance Directives on File: Yes Advance Directives Date on File: 03/04/23 Current occupational status: retired Cognitive needs: No Hearing needs: No Vision needs: Yes Physical Exam ED Vital Signs: Vital Signs - 24 hr 09/27/23 18:14 Temperature 98.9 F Pulse Rate 83 Respiratory Rate 18 Blood Pressure 133/75 Oxygen Delivery Method Room Air BMI result Body Mass Index 17.1 Const Other: Appearance: Alert. Oriented X3. No acute distress. Eyes: Pupils equal, round and reactive to light. ENT: Pharynx normal. Neck: Normal inspection. Neck supple. No lymph nodes noted. No crepitus CVS: Normal heart rate and rhythm. Pulses normal. Normal S1 and S2 Respiratory: No respiratory distress. Breath sounds normal. No Wheezing. No rales Abdomen: Soft and nontender. No rigidity. No distention. Skin: Skin warm and dry. Normal skin color. Normal skin turgor. Multiple ecchymoses a different stages of healing Extremities: No lower extremity edema. No Lacerations. No Rash Neuro: Oriented X 3. No motor deficit. No sensory deficit. Moving all extremities. No slurred speech. CN 2 through 12 grossly intact Psych: calm, cooperative, normal affect Course Course Course Narrative: RME: 67 yold female recently placed on blood thiners for afib presents to the ED for rectal bleeding/vaginal bleeding/ nasal bleeding since being on eliquis. Patient last took eleiquis at 3:00pm today. Sent by digital sales executive for evaluation. labs ordered. Medications Administered Generic Name Dose Route Start Last Admin Trade Name Freq PRN Reason Stop Dose Admin Octreotide Acetate 500 mcg/ 501 mls @ 50.1 mls/hr 09/27/23 21:00 09/28/23 08:33 Sodium Chloride IVCONT Infused .Q10H UMANG Infusion 50 MCG/HR Sodium Chloride 1,000 mls @ 100 mls/hr 09/28/23 04:00 09/28/23 05:25 Ns IVCONT Not Given .Q10H UMANG Pantoprazole Sodium 40 mg 09/28/23 06:30 09/28/23 08:33 Pantoprazole Sodium 40 Mg/10 Ml Vial IVPUSH 40 mg BID@0630,1630 UMANG Administration Sodium Chloride 3 ml 09/28/23 00:00 09/28/23 07:16 0.9 % Sodium Chloride Flush 3 Ml Syringe IVFLUSH Not Given QSHIFT UMANG Discontinued Medications Generic Name Dose Route Start Last Admin Trade Name Freq PRN Reason Stop Dose Admin Sodium Chloride 100 mls @ 100 mls/hr 09/27/23 21:00 09/28/23 02:24 Ns IV 09/27/23 21:59 Infused ONCE ONE Infusion Sodium Chloride 100 mls @ 100 mls/hr 09/27/23 21:00 09/28/23 04:00 Ns IV 09/27/23 21:59 Infused ONCE ONE Infusion Prothrombin Complex Concent ( 80 mls @ 480 mls/hr 09/27/23 22:31 09/27/23 23:23 Human) 2,000 unit/ IV IV 09/27/23 22:40 Infused Miscellaneous Supplies .Q10M ONE Infusion Octreotide Acetate 50 mcg 09/27/23 20:55 09/27/23 21:27 Octreotide Acetate 100 Mcg/Ml Ampul IVPUSH 09/27/23 20:56 50 mcg ONCE ONE Administration Pantoprazole Sodium 80 mg 09/27/23 20:55 09/27/23 21:25 Pantoprazole Sodium 40 Mg/10 Ml Vial IVPUSH 09/27/23 20:56 80 mg ONCE ONE Administration Potassium Chloride 40 meq 09/27/23 19:52 09/27/23 19:59 Potassium Chloride Packet 20 Meq Packet PO 09/27/23 19:53 40 meq ONCE ONE Administration Tramadol HCl 50 mg 09/27/23 21:03 09/27/23 21:26 Tramadol Hcl 50 Mg Tablet PO 09/27/23 21:04 50 mg ONCE ONE Administration Medical Decision Making Medical Decision Making MDM Narrative: -my interpretation of head CT: No intracranial bleed. Old lacunar infarct -my interpretation of labs: Patient's hemoglobin 6.2, hematocrit 20.3. The potassium is 2.9, repleted p.o. LFTs elevated for unclear reason, ultrasound of the liver/gallbladder pending, guaiac stool test is heme positive -I discussed the benefits versus risks of a blood transfusion, patient agreeable. Patient signed a consent. -I discussed the labs with the patient and her family. Family states that the patient has been heavily drinking alcohol for 10+ years. However, patient recently stopped drinking alcohol around July of 2023. To their knowledge, that was the patient's last alcoholic drink. -also, I discussed the CT findings with the patient's family, so they are knowledge patient has never had a stroke or TIA -I discussed the patient with Dr. Montes De Oca from Gastroenterology. We will obtain salicylate and acetaminophen levels. Patient is adamant that since she started blood thinners months ago she has not taking either ibuprofen or Tylenol. -we will go ahead and start Kcentra -tomorrow the patient will not be scoped, coagulation levels are too elevated -I discussed the patient with our hospitalist Dr. Brantley, patient being admitted -patient remains awake, alert, blood pressure 120/78, heart rate between 115 and 125 Differential Diagnosis Differential Diagnoses: The differential diagnosis associated with the presentation includes (Upper GI bleed, lower GI bleed, anemia, hypokalemia) Admission/Observation Consideration of admission/observation: Escalation of care including admission/observation considered Consult Healthcare Provider Management of the patient was discussed with: Hospitalist and Steam Oven Operator Lab Data MDM Lab Attestation statement: I reviewed the patient's lab results. 09/28/23 06:27 09/28/23 06:27 Labs: Lab Results 09/27/23 09/27/23 09/27/23 Range/Units 19:12 19:48 20:43 WBC 6.8 (4.8-10.8) X10*3/uL RBC 2.83 L D (4.20-5.50) X10*6/uL Hgb 6.2 L* D (12.0-16.0) g/dl Hct 20.3 L* D (37.0-47.0) % MCV 71.7 L (80.0-98.0) fL MCH 21.9 L (27.0-33.0) pg MCHC 30.5 L (31.0-35.0) g/dl RDW 17.8 H (11.0-16.0) % Plt Count 410 H D (160-400) X10*3/uL MPV 9.4 (9.4-12.3) fL Immature Gran % (Auto) Cancelled Neut % (Auto) Cancelled Lymph % (Auto) Cancelled [place] % (Auto) Cancelled Eos % (Auto) Cancelled Baso % (Auto) Cancelled Lymph # (Auto) Cancelled [place] # (Auto) Cancelled Eos # (Auto) Cancelled Baso # (Auto) Cancelled Abs Immat Gran (auto) Cancelled Absolute Neuts (auto) Cancelled Absolute Nucleated RBC 0.080 H (0.0-0.012) X10*3/uL Nucleated RBC % (auto) 1.2 H (0.0-0.2) /100WBC Neutrophils % (Manual) 76 H (45-73) % Band Neutrophils % 0 L (3-5) % Lymphocytes % (Manual) 20 (20-40) % Monocytes % (Manual) 3 (2-11) % Eosinophils % (Manual) 1 (0-4) % Abs Neuts (Manual) 5.2 (2.0-8.3) X10*3/uL Lymphocytes # (Manual) 1.4 (1.2-4.9) X10*3/uL Monocytes # (Manual) 0.2 (0.1-1.2) X10*3/uL Eosinophils # (Manual) 0.1 (0.0-0.4) X10*3/uL [place] Cells PRESENT Platelet Estimate NORMAL (NORMAL) Large Platelets PRESENT Plt Morphology Comment NOTED RBC Morphology NOTED Polychromasia 1+ (0-2) /OIF Hypochromasia 3+ (>30) /OIF Microcytosis 2+ (15-30) /OIF Macrocytosis 1+ (5-14) /OIF Spherocytes 1+ (0-2) /OIF Target Cells 1+ (5-14) /OIF Ovalocytes 1+ (5-14) /OIF Schistocytes 3+ (>5) /OIF Smear Path Review SEE NOTE PT 51.5 H (11.1-13.3) SEC INR 4.2 H (0.9-1.1) APTT 34.1 (26.0-36.8) SEC Fibrinogen 422 (259-690) MG/DL D-Dimer High Sensitivty < 150 NG/ML Sodium 136 (135-145) mmol/L Potassium 2.9 L* (3.3-5.1) mmol/L Chloride 94 L (96-108) mmol/L Carbon Dioxide 27 (22-29) mmol/L Anion Gap 18 (12-20) BUN 20 H (9-16) mg/dL Creatinine 0.95 (0.5-1.4) mg/dL Estim Creat Clear Calc 40.3 Estimated GFR 59 Random Glucose 114 (60-115) mg/dL Calcium 9.3 D (8.4-10.2) mg/dL Total Bilirubin 0.8 (0.0-1.0) mg/dL AST 652 H (5-31) U/L ALT 880 H (0-31) U/L Alkaline Phosphatase 136 H (39-117) U/L Total Protein 6.4 L (6.5-8.0) g/dL Albumin 3.7 (3.5-5.0) g/dL Urine Color Yellow Urine Appearance Clear Urine pH 7.0 (5.0-9.0) Ur Specific [place] 1.010 (1.005-1.025) Urine Protein Negative (Neg-Trace) mg/dL Urine Glucose (UA) Negative (Negative) mg/dL Urine Ketones Negative (Negative) mg/dL Urine Blood Negative (Negative) Urine Nitrite Negative (Negative) Ur Leukocyte Esterase Negative (Negative) Stool Occult Blood POSITIVE (NEGATIVE) Blood Type AB Positive Antibody Screen NEGATIVE Crossmatch See Detail Independent Interpretation I performed an independent interpretation of an: CT Scan Interpretation: There is no evidence of acute intracranial hemorrhage or edematous territorial infarction. [place]-white matter differentiation is preserved. 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 A few foci of hypoattenuation in the periventricular and deep white matter are consistent with mild microangiopathy. The ventricles are normal in morphology and size. No evidence for obstructive hydrocephalus. No abnormal mass effect or midline shift. No extra-axial fluid collections. Calcific atherosclerotic disease of the intracranial internal carotid and vertebral arteries. No hyperdense vessel sign. No acute soft tissue or osseous abnormalities. The mastoid air cells and visualized paranasal sinuses are clear. CT/CT head/brain wo IV con IMPRESSION: 1. No evidence of acute intracranial hemorrhage or edematous territorial infarction. 2. 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 3. Mild underlying microangiopathy and generalized cerebral volume loss. Independent Historian Clinical information obtained from an independent historian. History obtained from or confirmed by: Other (Patient's healthcare proxy) External Record Review External record reviewed: Prior outpatient labs Critical Care Time Critical Care Time Critical Care Time: Yes Total Critical Care Time: 90 Attestation: I have personally provided critical care time. Time includes review of lab data, radiology results, discussion with consultants, and monitoring for potential decompensation. Intervention performed as documented. Discharge Plan Discharge Clinical Impression: Acute GI bleeding, Acute hypokalemia, Elevated LFTs Anemia Qualifiers: Anemia type: unspecified type Qualified Code(s): D64.9 - Anemia, unspecified Patient Disposition: Admitted As Inpatient
--- NOTE | 2023-09-27 18:56 | ECG_ITS ---
Test Reason : LOW POTASIUM Blood Pressure : / mmHG Vent. Rate : 126 BPM Atrial Rate : 000 BPM P-R Int : 000 ms QRS Dur : 086 ms QT Int : 320 ms P-R-T Axes : 000 065 169 degrees QTc Int : 463 ms Atrial fibrillation with rapid ventricular response ST & T wave abnormality, consider inferolateral ischemia Abnormal ECG No previous ECGs available Referred By: Shannon Agustin Electronically Signed By:SUMEET CARRILLO MD
--- NOTE | 2023-09-27 19:14 | PC.NURSE ---
Assumed care of pt at 19:00, pt laying in bed upright, offering no complaints at this time. Plan of care ongoing.
[2023-09-27 19:21] LABS: Mean Corpuscular HGB Conc 30.5 g/dl (31.0-35.0); Mean Corpuscular Hemoglobin 21.9 pg (27.0-33.0); Mean Corpuscular Volume 71.7 fL (80.0-98.0); Mean Platelet Volume 9.4 fL (9.4-12.3); Platelet Count 410 X10*3/uL (160-400); Red Blood Count 2.83 X10*6/uL (4.20-5.50); Red Cell Distribution Width 17.8 % (11.0-16.0); White Blood Count 6.8 X10*3/uL (4.8-10.8)
[2023-09-27 19:24] LABS: NRBC Pct Auto 1.2 /100WBC (0.0-0.2)
[2023-09-27 19:26] LABS: Hematocrit 20.3 % (37.0-47.0); Hemoglobin 6.2 g/dl (12.0-16.0)
[2023-09-27 19:28] LABS: INTERNATIONAL NORM RATIO 4.2 (0.9-1.1); Prothrombin Time 51.5 SEC (11.1-13.3)
[2023-09-27 19:31] LABS: Partial Thromboplastin Time 34.1 SEC (26.0-36.8)
[2023-09-27 19:48] LABS: Alanine Aminotransferase 880 U/L (0-31); Albumin Level 3.7 g/dL (3.5-5.0); Alkaline Phosphatase 136 U/L (39-117); Anion Gap 18 (12-20); Aspartate Amino Transferase 652 U/L (5-31); Bilirubin Total 0.8 mg/dL (0.0-1.0); Blood Urea Nitrogen 20 mg/dL (9-16); Calcium 9.3 mg/dL (8.4-10.2); Carbon Dioxide 27 mmol/L (22-29); Chloride 94 mmol/L (96-108); Creatinine Clr Calc Pharmacy 40.3; Estimated Glomerular Filt Rate 59; Glucose Random 114 mg/dL (60-115); Potassium 2.9 mmol/L (3.3-5.1); Sodium 136 mmol/L (135-145); Total Protein 6.4 g/dL (6.5-8.0)
--- NOTE | 2023-09-27 19:50 | PC.NURSE ---
rec critical K+ from lab 2.9- MD koch notified via [employer] connect
[2023-09-27 19:55] LABS: Band Neutrophils Percent 0 % (3-5); Eosinophils Absolute Manual 0.1 X10*3/uL (0.0-0.4); Eosinophils Percent Manual 1 % (0-4); Lymphocytes Absolute Manual 1.4 X10*3/uL (1.2-4.9); Lymphocytes Percent Manual 20 % (20-40); Monocytes Absolute Manual 0.2 X10*3/uL (0.1-1.2); Monocytes Percent Manual 3 % (2-11); Neutrophils Absolute Manual 5.2 X10*3/uL (2.0-8.3); Neutrophils Percent Manual 76 % (45-73)
[2023-09-27 19:56] LABS: RBC Morphology NOTED
[2023-09-27 19:57] LABS: Large Platelet PRESENT; Microcytosis 2+ (15-30) /OIF; Ovalocytes 1+ (5-14) /OIF; Platelet Estimate NORMAL (NORMAL)
[2023-09-27 19:58] LABS: Schistocytes 3+ (>5) /OIF; Spherocytes 1+ (0-2) /OIF; Target Cells 1+ (5-14) /OIF
[2023-09-27 19:59] LABS: Hypochromasia 3+ (>30) /OIF; Macrocytosis 1+ (5-14) /OIF
[2023-09-27] MEDS: Potassium Chloride Packet 20 MEQ PACKET 40 MEQ PO (19:59)
[2023-09-27 20:00] LABS: Platelet Morphology Comment NOTED; Polychromasia 1+ (0-2) /OIF; Smudge Cells PRESENT
[2023-09-27 20:00] LABS: Appearance Urine Clear; Color Urine Yellow; Glucose Urine UA Negative (Negative); Leukocyte Esterase Urine Negative (Negative); Nitrite Urine Negative (Negative); Urine Blood Negative (Negative); Urine Ketones Negative (Negative); Urine Protein Negative (Neg-Trace)
--- OUTSIDE RECORDS SUMMARY | 2023-09-27 20:13 | XMS_ITS | Continuity of Care Document ---
Author Name Unknown Organization [facility], [place] Jamal lt Address [address] [place] [address]- Care Team Providers Care Can Filler Name Role Phone Sindy WESTFALL, Omar Gutierrez [id number] Date(s): 08/10/19 - 08/20/19 [facility] [place] Adult [address] [place] [address]- [facility] Attending Physician: Sharon Tierney Admitting Physician: AdmSharon tran Referring Physician: AdmtrSharon Allergies, Adverse Reactions, Alerts Substance Reaction Severity Status NKA Active Immunizations Given and Recorded Vaccine Date Status Refusal Reason pneumococcal 23-valent vaccine 07/28/18 Given influenza virus vaccine, inactivated 07/28/18 Give n influenza virus vaccine, inactivated 1 08/08/13 Gi tamia tetanus/diphtheria/pertussis, acel(Tdap) 2 12/12/14 Given tetanus/diphtheria/pertussis, acel(Tdap) 12/12/14 Given 1Result Comment: [11/12/2013] Patient declines flu shot 2Result Comment: already charted it Medications albuterol CFC free 90 mcg/inh inhalation aerosol 90 mcg, 1, puffs, Inhalation, Every 6 hours, PRN, # 1 each, Refills 0, Tot. Refills 0, Maintenance,07/28/18 15:38:16 EST, Inhaler, Route to Pharmacy Electronically, [id number], [id number] Start Date: 07/28/18 Status: Ordered amLODIPine 10 mg oral tablet 10 mg, 1, tablet, By Mouth, Daily, # 30 tablet, Refills 0, Tot. Refills 0, Maintenance, 08/20/19 16:10:00 EST, Route to Pharmacy Electronically, [facility] #[id number], 158, cm, 08/20/19 10:16:00 EST, Height, 53.6, kg, 07/25/18 1:05:00 EST, Dry W... Start Date: 08/20/19 Status: Ordered PARoxetine 40 mg oral tablet 40 mg, 1, tablet, By Mouth, Daily, Please make appt with Dr. Callahan, # 90 tablet, Refills 1, Tot. Refills 1, Maintenance, 07/17/19 7:10:43 EST, Route to Pharmacy Electronically, [id number], [facility], 158, cm, 0... Start Date: 07/17/19 Status: Ordered simvastatin 20 mg oral tablet 20 mg, 1, tablet, By Mouth, Daily at bedtime, Please call and schedule appt with Dr. Callahan, # 30 tablet, Refills 0, Tot. Refills 0, Maintenance, 07/16/19 13:49:24 EST, Route to Pharmacy Electronically, [id number], [facility]... Start Date: 07/16/19 Status: Ordered Symbicort 160mcg/4.5mcg Inhaler 2, puffs, Inhalation, 2 times a day, rinse mouth and throat after use, # 1 each, Refills 0, Tot. Refills 0, Maintenance, 07/28/18 15:38:07 EST, Inhaler, Route to Pharmacy Electronically, [id number], [facility] Start Date: 07/28/18 Status: Ordered Vitamin D3 By Mouth, 0 Refills, Maintenance Start Date: 12/08/11 Status: Ordered Problem List Condition Effective Dates Status Health Status Inform ant Acute hypoxemic respiratory failure(Confirmed) Active Anxiety(Confirmed) Active Eczema(Confirmed) Active Hypercholesterolemia(Confirmed) Active Hypertension(Confirmed) Active Malignant Neoplasm of Breast (Female), Unspecified(Confirmed) 02/22/03 Active Peripheral vascular disease(Confirmed) Active RSV bronchitis(Confirmed) Active Tobacco abuse(Confirmed) Active Urinary Frequency(Confirmed) Active Vaginal dysplasia(Confirmed) Active Social History Social History Type Response Smoking Status Former smoker, quit more than 30 days ago entered on: 08/07/18 Sex
--- OUTSIDE RECORDS SUMMARY | 2023-09-27 20:13 | XMS_ITS | Continuity of Care Document ---
Author Name Unknown Organization [facility] Jamal lt Address [address] [place] [address]- Care Team Providers Care Cement Mason Apprentice Name Role Phone Omar Callahan MD Primary Care Physician [id number](s[facility] 09/08/20 - 09/15/20 [facility] Adult [address] [place] [address]- Attending Physician: Omar Callahan MD Allergies, Adverse Reactions, Alerts Substance Reaction Severity Status NKA Active Immunizations Given and Recorded Vaccine Date Status Refusal Reason pneumococcal 23-valent vaccine 07/28/18 Given influenza virus vaccine, inactivated 07/28/18 Give n influenza virus vaccine, inactivated 1 08/08/13 Gi tamia tetanus/diphtheria/pertussis, acel(Tdap) 2 12/12/14 Given tetanus/diphtheria/pertussis, acel(Tdap) 12/12/14 Given 1Result Comment: [11/12/2013] Patient declines flu shot 2Result Comment: already charted it Medications amLODIPine 10 mg oral tablet 10 mg, 1, tablet, By Mouth, Daily, # 30 tablet, Refills 11, Tot. Refills 11, Maintenance, 09/08/20 10:55:00 EST, Route to Pharmacy Electronically, [facility] #[id number], 158, cm, 09/08/20 10:17:00 EST, Height Start Date: 09/08/20 Status: Ordered atorvastatin 40 mg oral tablet 1 tablet = 40 mg, By Mouth, Daily, # 30 tablet, 11 Refills, Maintenance, 09/08/20 10:57:00 EST, Tablet, [facility] #[id number], 158, cm, 09/08/20 10:17:00 EST, Height Start Date: 09/08/20 Status: Ordered Plavix 75 mg oral tablet 75 mg, 1, tablet, By Mouth, Daily, # 30 tablet, Refills 11, Tot. Refills 11, Maintenance, 09/22/20 8:00:00 EST, Route to Pharmacy Electronically, [facility] #[id number], 158, cm, 09/08/20 10:17:00 EST, Height Start Date: 09/22/20 Status: Ordered Plavix 75 mg oral tablet 75 mg, 1, tablet, By Mouth, Daily, for 30 days, # 30 tablet, Refills 11, Tot. Refills 11, Hard Stop09/22/20 8:00:00 EST, 09/28/19 8:00:00 EST, Route to Pharmacy Electronically, [facility] #02692, 158, cm, 09/27/19 10:13:00 EST, Height, 53.6... Start Date: 09/28/19 Stop Date: 09/22/20 Status: Ordered Problem List Condition Effective Dates Status Health Status Inform ant Acute hypoxemic respiratory failure(Confirmed) Active Anxiety(Confirmed) Active Eczema(Confirmed) Active Hypercholesterolemia(Confirmed) Active Hypertension(Confirmed) Active Malignant Neoplasm of Breast (Female), Unspecified(Confirmed) 02/22/03 Active Peripheral vascular disease(Confirmed) Active RSV bronchitis(Confirmed) Active Tobacco abuse(Confirmed) Active Urinary Frequency(Confirmed) Active Vaginal dysplasia(Confirmed) Active Vital Signs Most recent to oldest [Reference Range]: 1 Height 158 cm (09/08/20 10:17 AM) Social History Social History Type Response Tobacco Use: patient states she is quitting. Sex
--- OUTSIDE RECORDS SUMMARY | 2023-09-27 20:13 | XMS_ITS | Continuity of Care Document ---
Author Name Unknown Organization [facility] Address [address] [place] [address]- Care Team Providers Care Oil Well Pumper Name Role Phone Sindy WESTFALL, Omar Gutierrez Primary Care Physician [phone] [place] [facility] [place] [id number] Date(s): 08/30/19 - 09/09/19 [facility] [address] [place] [address]- [facility] Attending Physician: Sharon Tierney Admitting Physician: Sharon Tierney Referring Physician: Sharon Tierney Allergies, Adverse Reactions, Alerts Substance Reaction Severity [...] 08/20/19 16:10:00 EST, Route to Pharmacy Electronically, [facility] #[id number], 158, cm, 08/20/19 10:16:00 EST, Height, 53.6, kg, 07/25/18 1:05:00 EST, Dry W... Start Date: 08/20/19 Status: Ordered aspirin 81 mg oral tablet 1 tablet = 81 mg, By Mouth, Daily, 0 Refills, Maintenance, 08/21/19 9:13:00 EST Start Date: 08/21/19 Status: Ordered atorvastatin 40 mg oral tablet 1 tablet = 40 mg, By Mouth, Daily, # 30 tablet, 6 Refills, Maintenance, 08/21/19 9:13:00 EST, Tablet, [facility][id number], 158, cm, 08/20/19 10:16:00 EST, Height, 53.6, kg, 07/25/18 1:05:00 EST, Dry Weight Start Date: 08/21/19 Stop Date: 03/18/20 Status: Ordered PARoxetine 40 mg oral tablet 40 mg, 1, tablet, By Mouth, Daily, Please make appt with Dr. Callahan, # 90 tablet, Refills 1, Tot. Refills 1, Maintenance, 07/17/19 7:10:43 EST, Route to Pharmacy Electronically, [id number], [facility], 158, cm, 0... Start Date: 07/17/19 Status: Ordered Vitamin D3 By Mouth, 0 [...]
--- OUTSIDE RECORDS SUMMARY | 2023-09-27 20:13 | XMS_ITS | Continuity of Care Document ---
Author Name Unknown Organization [facility] Jamal lt Address [address] [place] [address]- Care Team Providers Care Almond Roaster Name Role Phone Sindy WESTFALL, Omar Gutierrez Primary Care Physician [phone] [id number] Date(s): 09/08/20 - 10/08/20 [facility] Adult [address] [place] [address]- Attending Physician: Sharon Tierney Admitting Physician: AdmSharon [...] 09/08/20 10:55:00 EST, Route to Pharmacy Electronically, [facility][id number], 158, cm, 09/08/20 10:17:00 EST, Height Start Date: 09/08/20 Status: Ordered atorvastatin 40 mg oral tablet 1 tablet = 40 mg, By Mouth, Daily, # 30 tablet, 11 Refills, Maintenance, 09/08/20 10:57:00 EST, Tablet, [facility] #53089, 158, cm, 09/08/20 10:17:00 EST, Height Start Date: 09/08/20 Status: Ordered Plavix 75 mg oral tablet 75 mg, 1, tablet, By Mouth, Daily, # 30 tablet, Refills 11, Tot. Refills 11, Maintenance, 09/22/20 8:00:00 EST, Route to Pharmacy Electronically, [facility] #32410, 158, cm, 09/08/20 10:17:00 EST, Height Start Date: 09/22/20 Status: Ordered Problem List Condition Effective Dates Status Health Status Inform ant Acute hypoxemic respiratory failure(Confirmed) Active Anxiety(Confirmed) Active Eczema(Confirmed) Active Hypercholesterolemia(Confirmed) Active Hypertension(Confirmed) Active Malignant Neoplasm of Breast (Female), Unspecified(Confirmed) 02/22/03 Active Peripheral vascular disease(Confirmed) Active RSV bronchitis(Confirmed) Active Tobacco abuse(Confirmed) Active Urinary Frequency(Confirmed) Active Vaginal dysplasia(Confirmed) Active Social History Social History Type Response Tobacco Use: patient states she is quitting. Sex
--- OUTSIDE RECORDS SUMMARY | 2023-09-27 20:13 | XMS_ITS | Continuity of Care Document ---
Author Name Unknown Organization [facility] Address [address] [place] [address]- Care Team Providers Care Electronic Data Interchange Specialist Name Role Phone Sindy WESTFALL, Omar Gutierrez Primary Care Physician En[facility] R [id number] Date(s): 12/24/19 - 01/23/20 [facility] [address] [place] [address]- [facility] Attending Physician: Sharon Tierney Admitting Physician: Sharon [...] 08/20/19 16:10:00 EST, Route to Pharmacy Electronically, [facility] #[id number], 158, cm, 08/20/19 10:16:00 EST, Height, 53.6, [...] 6 Refills, Maintenance, 08/21/19 9:13:00 EST, Tablet, [facility] #[id number], 158, cm, 08/20/19 10:16:00 EST, Height, 53.6, kg, 07/25/18 1:05:00 EST, Dry Weight Start Date: 08/21/19 Stop Date: 03/18/20 Status: Ordered PARoxetine 40 mg oral tablet 1, tablet, By Mouth, Daily, # 90 tablet, Refills 0, Tot. Refills 0, Maintenance, 12/19/19 17:44:00 EDT, Route to Pharmacy Electronically, [facility], 158, cm, 10/08/19 8:22:00 EST, Height, 53.6, kg, 07/25/18 1:05:00 EST, Dry Weight Start Date: 12/19/19 Status: Ordered Plavix 75 mg oral tablet 75 mg, 1, tablet, By Mouth, Daily, # 30 tablet, Refills 11, Tot. Refills 11, Maintenance, 09/28/19 8:00:00 EST, Route to Pharmacy Electronically, [facility] #[id number], 158, cm, 09/27/19 10:13:00 EST, Height, 53.6, kg, 07/25/18 1:05:00 EST, Dry... Start Date: 09/28/19 Stop Date: 09/22/20 Status: Ordered Vitamin D3 By Mouth, 0 [...]
--- OUTSIDE RECORDS SUMMARY | 2023-09-27 20:14 | XMS_ITS | Continuity of Care Document ---
Author Name Unknown Organization [facility] Address [address] [place] [address]- Care Team Providers Care Gradall Operator Name Role Phone Eric WESTFALL, Wilma Cornejo Primary [id number]/11[facility]22 - 06/18/22 [facility] [address] [place], [place] [address] Attending Physician: Nicho Winkler MD Admitting Physician: Nicho Winkler MD Referring Physician: Wilma Reyes MD Allergies, Adverse Reactions, Alerts No Known Allergies Immunizations Given and Recorded Vaccine Date Status [...] 09/08/20 10:55:00 EST, Route to Pharmacy Electronically, [facility] #[id number], 158, cm, 09/08/20 10:17:00 EST, Height Start Date: 09/08/20 Status: Ordered atorvastatin 40 mg oral tablet 1 tablet = 40 mg, By Mouth, Daily, # 30 tablet, 11 Refills, Maintenance, 09/08/20 10:57:00 EST, Tablet, [facility] #[id number], 158, cm, 09/08/20 10:17:00 EST, Height Start Date: 09/08/20 Status: Ordered Lisinopril By Mouth, Daily, 0 Refills, Maintenance, 06/11/22 9:49:00 EDT, Partial fill upon patient request ifthe prescription is for a schedule II opioid drug. Start Date: 06/11/22 Status: Ordered Plavix 75 mg oral tablet 75 mg, 1, tablet, By Mouth, Daily, # 30 tablet, Refills 11, Tot. Refills 11, Maintenance, 09/22/20 8:00:00 EST, Route to Pharmacy Electronically, [facility] #[id number], 158, cm, 09/08/20 10:17:00 EST, Height Start Date: 09/22/20 Status: Ordered Problem List Condition Confirmation Course Effective Dates Status Health Status Informant Acute hypoxemic respiratory failure Confirmed Active Anxiety Confirmed Active Eczema Confirmed Active Hypercholesterolemia Confirmed Active Hypertension Confirmed Active Malignant Neoplasm of Breast (Female), Unspecified Confirmed 02/22/03 Active Peripheral vascular disease Confirmed Active RSV bronchitis Confirmed Active Tobacco abuse Confirmed Active Urinary Frequency Confirmed Active Vaginal dysplasia Confirmed Active Vital Signs Most recent to oldest [Reference Range]: 1 Height 158 cm (06/11/22 9:39 AM) Weight 60.78 kg (06/11/22 9:39 AM) Oxygen Saturation [94-100 %] 98 % (06/11/22 9:39 AM) Pulse Rate [55-90 bpm] 82 bpm (06/11/22 9:39 AM) Body Mass Index [18.5-24.99 kg/m2] 24.35 kg/m2 (06/11/22 9:39 AM) Blood Pressure [90-138/55-84 mm Hg] 166/ 90mm Hg *H* (06/11/22 9:39 AM) Mode of Delivery (Oxygen) Room air (06/11/22 9:39 AM) Blood pressure sites Arm, left (06/11/22 9:39 AM) Weight Obtained Via Patient/family state d (06/11/22 9:39 AM) Social History Social History Type Response Tobacco Use: patient states she is quitting. Sex Note * Shelbi Armstrong: PERFORM, SIGN, VERIFY Event Display: Patient Education/Instruction Authored Date: [id number] [facility] *[facility] [address] Clinical Summary Name CARMELO ROBISON Age 66 Years 1955 PCP Eric WESTFALL , Wilma Cornejo PCP Visit Date 06/11/2022 09:37:00 Additional Instructions: Scheduled Appointments?? Future Appointments ?No Future Appointments Scheduled Follow-Up Instructions ?? Diagnosis Medications: Please continue your medications until treatment is completed or stopped by your provider. Discuss any questions related to medications with your provider. Medications to Continue with No Changes These medications were not printed or sent to your pharmacy Amlodipine (amLODIPine 10 mg oral tablet) 1 tab(s) Oral Daily. Refills: 11. Next Dose: Atorvastatin (atorvastatin 40 mg oral tablet) 1 tab(s) Oral Daily. Refills: 11. Next Dose: Clopidogrel (Plavix 75 mg oral tablet) 1 tab(s) Oral Daily. Refills: 11. Next Dose: Lisinopril Oral Daily. Next Dose: Allergy Info:?? NKA Medications Given This Visit Future Orders ?No future orders Vital Signs Height 158 cm Weight 60.78 kg BMI 24.35 kg/m2 Blood Pressure 166 mm Hg/90 mm Hg Temperature Pulse Rate 82 bpm Respiratory Rate 02 Sat Mode of Delivery 98 %/Room air You can now view a summary of your hospital visit from the comfort of your home through a free online portal called [facility]. [facility] is a website that allows you to securely view your medical information including discharge summary, medications and follow-up visits. ??You can alsosend a secure electronic message to your doctor???s office to request appointments, renew medications or just ask a question. You can enroll at [email or web address] or register during your next office visit. Disclaimer:?? The information provided is of a general nature and is intended to be used in conjunction with the recommendations and advice of your health care practitioner. ??Every effort has been made to ensure that the information provided is accurate and complete at the time it is provided to you however, as your needs change, or, as new ??information becomes available, different or additional instructions may be required. If you have questions, please consult with your primary care provider or pharmacist, as appropriate. ??This information is not intended to serve as substitution for assessment and evaluation by a qualified health care provider. If you do not have a primary care provider, you may find a [facility] provider by calling [facility] at [phone]. For information about the plan of care including goals and instructions for your diagnosis, please see the patient education orders section of this document. Patient Education Materials?? The content of this educational material or handout may have been modified, supplemented, or adapted from its original content and format to support your individualized medical care. Patient Care team information Care Team Personnel Name: Dian Love RN Position: [facility] RN Member Role: Primary Care Nurse Name: Eric WESTFALL , Wilma Cornejo Position: Reference Physician Member Role: PCP Address: Address: [address] [place], [place] [address] Name: Chris Maynard NP Position: [facility] Outreach Member Role: Primary Care Nurse Address: Address: [facility] [address] [place], [place] [address] Name: Samantha Anderson RN Position: [facility] RN Member Role: Primary Care Nurse Care Team Related Persons Name: CORRIE ROBISON Address: [address] [place], [place] Name: JO ROBISON Name: JESSICA ROBISON Address: [address] [address]
--- OUTSIDE RECORDS SUMMARY | 2023-09-27 20:14 | XMS_ITS | Continuity of Care Document ---
Author Name Unknown Organization [facility] Jamal lt Address [address] [place] [address]- Care Team Providers Care Process Improvement Analyst Name Role Phone Sindy WESTFALL, Omar Gutierrez [id number] Adult [address] [place] [address]- [facility] Encounter Diagnosis Peripheral vascular disease(Discharge Diagnosis) - 08/10/19 Hypertension(Discharge Diagnosis) - 08/10/19 Tobacco abuse(Discharge Diagnosis) - 08/10/19 Attending Physician: Ashish SUPERVISOR [employer], Monse Allergies, Adverse Reactions, Alerts Substance Reaction Severity [...] 15:38:16 EST, Inhaler, Route to Pharmacy Electronically, [id number], [id number] Start Date: 07/28/18 Status: Ordered amLODIPine 10 mg oral tablet 10 mg, 1, tablet, By Mouth, Daily, # 30 tablet, Refills 1, Tot. Refills 1, Maintenance, 08/10/19 12:10:00 EST, Route to Pharmacy Electronically, [facility], 158, cm, 08/10/19 11:31:00 EST, Height, 53.6, kg, 07/25/18 1:05:00 EST, Dry Weight Start Date: 08/10/19 Status: Ordered PARoxetine 40 mg oral tablet 40 mg, 1, tablet, By Mouth, Daily, Please make appt with Dr. Callahan, # 90 tablet, Refills 1, Tot. Refills 1, Maintenance, 07/17/19 7:10:43 EST, Route to Pharmacy Electronically, [id number], [facility], 158, cm, 0... Start Date: 07/17/19 Status: Ordered simvastatin 20 mg oral tablet 20 mg, 1, tablet, By Mouth, Daily at bedtime, Please call and schedule appt with Dr. Callahan, # 30 tablet, Refills 0, Tot. Refills 0, Maintenance, 07/16/19 13:49:24 EST, Route to Pharmacy Electronically, [id number], [facility]... Start Date: 07/16/19 Status: Ordered Symbicort 160mcg/4.5mcg Inhaler 2, puffs, Inhalation, 2 times a day, rinse mouth and throat after use, # 1 each, Refills 0, Tot. Refills 0, Maintenance, 07/28/18 15:38:07 EST, Inhaler, Route to Pharmacy Electronically, [id number], [id number] Start Date: 07/28/18 Status: Ordered Vitamin D3 [...] Active Urinary Frequency(Confirmed) Active Vaginal dysplasia(Confirmed) Active Diagnosis Diagnosis Type Effective Dates Health Status Clinical Service Informant Peripheral vascular disease Discharge Diagnosis 08/10/19 Hypertension Discharge Diagnosis 08/10/19 Tobacco abuse Discharge Diagnosis 08/10/19 Vital Signs Most recent to oldest [Reference Range]: 1 2 Height 158 cm (08/10/19 12:00 PM) 158 cm (08/10/19 11:31 AM) Weight 54.7 kg (08/10/19 11:31 AM) Oxygen Saturation [94-100 %] 98 % (08/10/19 11:31 AM) Pulse Rate [55-90 bpm] 100 bpm *H* (08/10/19 11:31 AM) Body Mass Index [18.5-24.99] 21.91 (08/10/19 11:31 AM) Blood Pressure [90-138/55-84 mm Hg] 146/ 84mm Hg *H* (08/10/19 12:00 PM) 162/92mm Hg *H* (08/10/19 11:31 AM) Temperature [96.8-100.4 DegF] 97.8 DegF (08/10/19 11:31 AM) Blood pressure sites Arm, right (08/10/19 12:00 PM) Temperature Route Oral (08/10/19 11:31 AM) Social History Social History Type Response Smoking Status Former smoker, quit more than 30 days ago entered on: 08/07/18 Sex
--- OUTSIDE RECORDS SUMMARY | 2023-09-27 20:14 | XMS_ITS | Continuity of Care Document ---
Author Name Unknown Organization [facility] Address [address] [place] [address]- Care Team Providers Care Silk Screen Processor Name Role Phone Sindy WESTFALL, Omar Gutierrez Primary Care Physician [phone] Encounter [facility] Date(s): 10/08/19 - 01/20/20 [facility] [address] [place] [address]- [facility] Attending Physician: Nicho Winkler MD Admitting Physician: Nicho Winkler MD Referring Physician: Nicho Winkler MD Allergies, Adverse Reactions, Alerts Substance Reaction [...] 08/20/19 16:10:00 EST, Route to Pharmacy Electronically, [facility] #[id number], 158, cm, 08/20/19 10:16:00 EST, Height, 53.6, [...] 6 Refills, Maintenance, 08/21/19 9:13:00 EST, Tablet, [facility] #[id number], 158, cm, 08/20/19 10:16:00 EST, Height, 53.6, kg, 07/25/18 1:05:00 EST, Dry Weight Start Date: 08/21/19 Stop Date: 03/18/20 Status: Ordered PARoxetine 40 mg oral tablet 1, tablet, By Mouth, Daily, # 90 tablet, Refills 0, Tot. Refills 0, Maintenance, 12/19/19 17:44:00 EDT, Route to Pharmacy Electronically, [facility], 158, cm, 10/08/19 8:22:00 EST, Height, 53.6, kg, 07/25/18 1:05:00 EST, Dry Weight Start Date: 12/19/19 Status: Ordered Plavix 75 mg oral tablet 75 mg, 1, tablet, By Mouth, Daily, # 30 tablet, Refills 11, Tot. Refills 11, Maintenance, 09/28/19 8:00:00 EST, Route to Pharmacy Electronically, [facility] #[id number], 158, cm, 09/27/19 10:13:00 EST, Height, 53.6, [...]
--- OUTSIDE RECORDS SUMMARY | 2023-09-27 20:14 | XMS_ITS | Continuity of Care Document ---
Author Name Unknown Organization [facility] Address [address] [place] [id number]- Care Team Providers Care Consulting Services Manager Name Role Phone Sindy WESTFALL, Omar Gutierrez Primary Care Physician Encounter [facility] [place] [id number] Date(s): 12/21/19 - 01/20/20 [facility] [address] [place] [address]- [facility] Attending Physician: Sharon Tierney Admitting Physician: Sharon Tierney Referring Physician: AdmtrSharon Allergies, Adverse Reactions, Alerts [...] 08/20/19 16:10:00 EST, Route to Pharmacy Electronically, [facility][id number], 158, cm, 08/20/19 10:16:00 EST, Height, 53.6, [...] 6 Refills, Maintenance, 08/21/19 9:13:00 EST, Tablet, [facility] #[id number], 158, cm, 08/20/19 10:16:00 EST, Height, 53.6, kg, 07/25/18 1:05:00 EST, Dry Weight Start Date: 08/21/19 Stop Date: 03/18/20 Status: Ordered PARoxetine 40 mg oral tablet 1, tablet, By Mouth, Daily, # 90 tablet, Refills 0, Tot. Refills 0, Maintenance, 12/19/19 17:44:00 EDT, Route to Pharmacy Electronically, [facility], 158, cm, 10/08/19 8:22:00 EST, Height, 53.6, kg, 07/25/18 1:05:00 EST, Dry Weight Start Date: 12/19/19 Status: Ordered Plavix 75 mg oral tablet 75 mg, 1, tablet, By Mouth, Daily, # 30 tablet, Refills 11, Tot. Refills 11, Maintenance, 09/28/19 8:00:00 EST, Route to Pharmacy Electronically, [facility] #[id number], 158, cm, 09/27/19 10:13:00 EST, Height, 53.6, [...]
--- OUTSIDE RECORDS SUMMARY | 2023-09-27 20:14 | XMS_ITS | Continuity of Care Document ---
Author Name Unknown Organization [facility] ter Address [address] [place] [address]- Care Team Providers Care Deicer Tester Name Role Phone Sindy WESTFALL, Omar Gutierrez Primary Care Physician Encounter [facility] [place] Date(s): 08/10/19 - 08/10/[address] [address]- [facility] Attending Physician: Ashish BALLISTICS TESTERMonse Allergies, Adverse Reactions, Alerts Substance Reaction Severity [...] 15:38:16 EST, Inhaler, Route to Pharmacy Electronically, [id number], [facility] [id number] Start Date: 07/28/18 Status: Ordered amLODIPine 10 mg oral tablet 10 mg, 1, tablet, By Mouth, Daily, # 30 tablet, Refills 1, Tot. Refills 1, Maintenance, 08/10/19 12:10:00 EST, Route to Pharmacy Electronically, [facility], 158, cm, 08/10/19 11:31:00 EST, Height, 53.6, kg, 07/25/18 1:05:00 EST, Dry Weight Start Date: 08/10/19 Status: Ordered PARoxetine 40 mg oral tablet 40 mg, 1, tablet, By Mouth, Daily, Please make appt with Dr. Callahan, # 90 tablet, Refills 1, Tot. Refills 1, Maintenance, 07/17/19 7:10:43 EST, Route to Pharmacy Electronically, [id number], [facility], 158, cm, 0... Start Date: 07/17/19 Status: Ordered simvastatin 20 mg oral tablet 20 mg, 1, tablet, By Mouth, Daily at bedtime, Please call and schedule appt with Dr. Callahan, # 30 tablet, Refills 0, Tot. Refills 0, Maintenance, 07/16/19 13:49:24 EST, Route to Pharmacy Electronically, [id number], [facility]... Start Date: 07/16/19 Status: Ordered Symbicort 160mcg/4.5mcg Inhaler 2, puffs, Inhalation, 2 times a day, rinse mouth and throat after use, # 1 each, Refills 0, Tot. Refills 0, Maintenance, 07/28/18 15:38:07 EST, Inhaler, Route to Pharmacy Electronically, [id number], [facility] [id number] Start Date: 07/28/18 Status: Ordered Vitamin D3 [...]
--- OUTSIDE RECORDS SUMMARY | 2023-09-27 20:14 | XMS_ITS | Continuity of Care Document ---
Author Name Unknown Organization [facility] Address [address] [place] [address]- Care Team Providers Care Adaptive Physical Education Teacher Name Role Phone Eric WESTFALL, Wilma Cornejo Primary Care Physician Encounter [facility] [place] Date(s): 06/22/23 - 06/29/23 [facility] [address] [place], [place] [address] Attending Physician: Alan ZAZUETA, Enedina Morales Admitting Physician: Alan ZAZUETA, Enedina Morales Allergies, Adverse Reactions, Alerts Substance Reaction Severity Status cefTRIAXone Active Immunizations Given and Recorded Vaccine Date Status Refusal Reason tetanus/diphtheria/pertussis, acel(Tdap) 02/02/23 Given tetanus/diphtheria/pertussis, acel(Tdap) 12/12/14 Given pneumococcal 23-valent vaccine 07/28/18 Given influenza virus vaccine, inactivated 07/28/18 Give n influenza virus vaccine, inactivated 1 08/08/13 Gi tamia 1Result Comment: [11/12/2013] Patient declines flu shot Medications aspirin 81 mg oral tablet 1 tablet = 81 mg, By Mouth, Daily, # 90 tablet, 0 Refills, Maintenance, 06/22/23 9:59:00 EST, Tablet, Partial fill upon patient request if the prescription is for a schedule II opioid drug. Start Date: 06/22/23 Status: Ordered atorvastatin 40 mg oral tablet 1 tablet = 40 mg, By Mouth, Daily, # 30 tablet, 11 Refills, Maintenance, 09/08/20 10:57:00 EST, Tablet, [facility] #[id number], 158, cm, 09/08/20 10:17:00 EST, Height Start Date: 09/08/20 Status: Ordered metoprolol 25 mg oral tablet, extended release 25 mg, 1, tablet, By Mouth, Daily, # 30 tablet, Refills 0, Maintenance, 02/02/23 22:29:00 EDT, Partial fill upon patient request if the prescription is for a schedule II opioid drug. Start Date: 02/02/23 Status: Ordered Paxil 20 mg oral tablet 20 mg, 1, tablet, By Mouth, Daily, # 30 tablet, Refills 0, Maintenance, 02/02/23 22:28:00 EDT, Partial fill upon patient request if the prescription is for a schedule II opioid drug. Start Date: 02/02/23 Status: Ordered Plavix 75 mg oral tablet 75 mg, 1, tablet, By Mouth, Daily, # 90 tablet, Refills 3, Tot. Refills 3, Maintenance, 08/30/22 12:06:00 EST, Route to Pharmacy Electronically, [facility]/pharmacy #[id number], 158, cm, 06/11/22 9:39:00 EDT, Height Start Date: 08/30/22 Status: Ordered Problem List Condition Confirmation Course Effective Dates Status Health Status Informant Acute hypoxemic respiratory failure Confirmed Active Anxiety Confirmed Active Eczema Confirmed Active Hypercholesterolemia Confirmed Active Hypertension Confirmed Active Malignant Neoplasm of Breast (Female), Unspecified Confirmed 02/22/03 Active Peripheral vascular disease Confirmed Active RSV bronchitis Confirmed Active Tobacco abuse Confirmed Active Urinary Frequency Confirmed Active Vaginal dysplasia Confirmed Active Social History Social History Type Response Tobacco Use: patient states she is quitting. Sex Note * Ritu Ramsey: PERFORM, SIGN, VERIFY Event Display: Patient Education/Instruction Authored Date: [id number] [facility] *[facility] [address] Clinical Summary Name CARMELO ROBISON Age 67 Years 1955 PCP Eric WESTFALL , Wilma Cornejo PCP Visit Date 06/22/2023 06:37:00 Additional Instructions: Scheduled Appointments?? Future Appointments ?No Future Appointments Scheduled Follow-Up Instructions ?? With: Address: When: Alan ZAZUETA, Enedina Morales Comments: one year with aortoiliac duplex, CHRISTI, and exam Diagnosis Medications: Please continue your medications until treatment is completed or stopped by your provider. Discuss any questions related to medications with your provider. Medications to Continue with No Changes These medications were not printed or sent to your pharmacy Aspirin (aspirin 81 mg oral tablet) 1 tab(s) Oral Daily. Next Dose: Atorvastatin (atorvastatin 40 mg oral tablet) 1 tab(s) Oral Daily. Refills: 11. Next Dose: Clopidogrel (Plavix 75 mg oral tablet) 1 tab(s) Oral Daily. Refills: 3. Next Dose: Metoprolol (metoprolol 25 mg oral tablet, extended release) 1 tab(s) Oral Daily. Next Dose: Paroxetine (Paxil 20 mg oral tablet) 1 tab(s) Oral Daily. Next Dose: No Longer Take the Following Medications apixaban 5 Milligram Oral twice a day. Allergy Info:?? cefTRIAXone Medications Given This Visit Future Orders ?VL Ankle Brachial Indices? Order Date:06/22/24?- Complete by?07/20/24 ?VL Aorta Iliac Duplex Scan Comp? Order Date:06/22/24?- Complete by?07/20/24 Vital Signs Height Weight BMI Blood Pressure / Temperature Pulse Rate Respiratory Rate 02 Sat Mode of Delivery / You can now view a summary of your hospital visit from the comfort of your home through a free online portal called [employer]. [employer] is a website that allows you to securely view your medical information including discharge summary, medications and follow-up visits. ??You can alsosend a secure electronic message to your doctor???s office to request appointments, renew medications or just ask a question. You can enroll at [email or web address] or register during your next office visit. [...] primary care provider, you may find a [facility] provider by calling [facility] at [phone]. [facility], in keeping with [facility] guidance, no longer requires face masks for staff, patientsor visitors in most situations. Similar to time spent indoors at other locations, there is the chance that you were exposed to respiratory viruses during your time with us (such as flu or COVID-19).? If you develop symptoms concerning for a viral respiratory infection, please seek testing (and treatment if indicated) from your medical provider or home test kit. For information about the plan of care [...] Team Personnel Name: Dian Love RN Position: [facility] RN Member Role: Primary Care Nurse Name: Eric WESTFALL , Wilma Cornejo Position: Reference Physician Member Role: PCP Address: Address: [address] [place] [address]- [place] Name: Chris Maynard NP Position: [facility] Outreach Member Role: Primary Care Nurse Address: Address: [facility] [address] [place] [address]- [place] Name: Samantha Anderson RN Position: [facility] RN Member Role: Primary Care Nurse Name: Mary Rivera RN Position: [facility] RN Member Role: Primary Care Nurse Name: Tesha Kincaid RN Position: S RN Member Role: Primary Care Nurse Name: Jacqueline Hayden RN Position: S RN Member Role: Primary Care Nurse Care Team Related Persons Name: CORRIE ROBISON Address: [address] [address] Name: JO ROBISON Name: JESSICA ROBISON Address: [address] [address]
--- OUTSIDE RECORDS SUMMARY | 2023-09-27 20:14 | XMS_ITS | Continuity of Care Document ---
Author Name Unknown Organization [facility] Address [address] [place] [address]- Care Team Providers Care Grain Elevator Operator Name Role Phone Sindy WESTFALL, Omar Gutierrez Primary Care Physician [phone] Encounter [facility] [place] ACCT R [id number] Date(s): 10/08/19 - 10/15/19 [facility] [address] [place] [address]- [facility] Attending Physician: Nicho Winkler MD Admitting Physician: Nicho Winkler MD Allergies, Adverse Reactions, [...] 08/20/19 16:10:00 EST, Route to Pharmacy Electronically, [facility] #[id number], 158, cm, 08/20/19 10:16:00 EST, Height, 53.6, [...] 6 Refills, Maintenance, 08/21/19 9:13:00 EST, Tablet, [facility] #[id number], 158, cm, 08/20/19 10:16:00 EST, Height, 53.6, kg, 07/25/18 1:05:00 EST, Dry Weight Start Date: 08/21/19 Stop Date: 03/18/20 Status: Ordered PARoxetine 40 mg oral tablet 40 mg, 1, tablet, By Mouth, Daily, Please make appt with Dr. Callahan, # 90 tablet, Refills 1, Tot. Refills 1, Maintenance, 07/17/19 7:10:43 EST, Route to Pharmacy Electronically, [id number], [facility], 158, cm, 0... Start Date: 07/17/19 Status: Ordered Plavix 75 mg oral tablet 75 mg, 1, tablet, By Mouth, Daily, # 30 tablet, Refills 11, Tot. Refills 11, Maintenance, 09/28/19 8:00:00 EST, Route to Pharmacy Electronically, [facility] #[id number], 158, cm, 09/27/19 10:13:00 EST, Height, 53.6, [...] oldest [Reference Range]: 1 Height 158 cm (10/08/19 8:22 AM) Weight 54.5 kg (10/08/19 8:22 AM) Body Mass Index [18.5-24.99] 21.83 (10/08/19 8:22 AM) Blood Pressure [90-138/55-84 mm Hg] 132/ 74mm Hg (10/08/19 8:22 AM) Blood pressure sites Arm, right (10/08/19 8:22 AM) Weight Obtained Via Patient/family state d (10/08/19 8:22 AM) Social History Social History Type Response Tobacco Use: patient states she is quitting. Sex
--- OUTSIDE RECORDS SUMMARY | 2023-09-27 20:14 | XMS_ITS | Continuity of Care Document ---
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 Name Role Phone Eric WESTFALL, Wilma Cornejo Primary Care Physician Encounter [facility] Date(s): 09/07/23 - 09/09/[address] [address] Encounter Diagnosis Atrial fibrillation with RVR(Final) - 09/07/23 Discharge Disposition: A-D/C Home Attending Physician: Jeremy WESTFALL, Merrick Admitting Physician: Panda Saavedra MD Referring Physician: Not on Staff, Referring MD Allergies, Adverse Reactions, Alerts Substance Reaction Severity Status cefTRIAXone Active Immunizations Given and Recorded Vaccine Date Status Refusal Reason influenza virus vaccine, inactivated 09/09/23 Give n influenza virus vaccine, inactivated 07/28/18 Give n influenza virus vaccine, inactivated 1 08/08/13 Gi tamia tetanus/diphtheria/pertussis, acel(Tdap) 02/02/23 Given tetanus/diphtheria/pertussis, acel(Tdap) 12/12/14 Given pneumococcal 23-valent vaccine 07/28/18 Given 1Result Comment: [11/12/2013] Patient declines flu shot Medications apixaban Starter Pack 5 mg oral tablet = 5 mg, By Mouth, 2 times a day, # 60 tablet, 0 Refills, Maintenance, 09/09/23 13:36:00 EST, Tablet, [facility], Partial fill upon patient request if the prescription is for a schedule II opioid drug., 159, cm, 09/09/23 10:50:00 EST, Hei... Start Date: 09/09/23 Status: Ordered atorvastatin 40 mg oral tablet 1 tablet = 40 mg, By Mouth, Daily at bedtime, Maintenance, 09/07/23 19:55:00 EST, Partial fill uponpatient request if the prescription is for a schedule II opioid drug. Start Date: 09/07/23 Status: Ordered Lasix 20 mg oral tablet 20 mg, 1, tablet, By Mouth, Daily, # 30 tablet, Refills 0, Tot. Refills 0, Maintenance, 09/09/23 13:36:00 EST, Route to Pharmacy Electronically, [facility] 3, Partial fill upon patient request if the prescription is for a schedule II opioi... Start Date: 09/09/23 Status: Ordered metoprolol 50 mg oral tablet, extended release 50 mg, 1, tablet, By Mouth, Daily, # 30 tablet, Refills 0, Tot. Refills 0, Maintenance, 09/09/23 13:36:00 EST, Route to Pharmacy Electronically, [facility], Partial fill upon patient request if the prescription is for a schedule II opioi... Start Date: 09/09/23 Status: Ordered Paxil 20 mg oral tablet [...] 08/30/22 12:06:00 EST, [id number], 158, cm, 06/11/22 9:39:00 EDT, Height [...] Frequency Confirmed Active Vaginal dysplasia Confirmed Active Results Radiology Reports * Exam Date Time Procedure Performing Provider Status 09/07/23 10:38 AM Chest 2 Views Frontal and Lat Eden Martinez; Shane (Verified) Notes: (Chest 2 Views Frontal and Lat) Reason For Exam: Shortness of Breath RESULT: Chest 2 Views Frontal and Lat Examination: Chest performed on 09/07/2023. History: Preop. Shortness of breath. Findings: Frontal and lateral views of the chest are compared to a prior study dated 07/24/2018. The cardiac silhouette is enlarged. A lucency along the left heart border likely represents mock artifact and is less likely to represent pneumomediastinum. Minimal interstitial pulmonary edema and atrace right pleural effusion are present. The osseous structures are intact. Surgical clips in the axillary regions are noted. IMPRESSION: Interstitial pulmonary edema. Probable mock artifact along the left mediastinum and heart border, however, pneumomediastinum cannot be fully excluded. WSN: [id number] Ordering Physician: Noel Bowman Dictated By: Ирина Richmond MD Dictated Date/Time: 09/07/23 10:56 a Reviewed By: Ирина Richmond MD Signed By: Ирина Richmond MD Signed Date/Time: 09/07/23 10:56 am Transcribed By: YASMINE Transcribed Date/Time: 09/07/23 10:55 am Vital Signs Most recent to oldest [Reference Range]: 1 2 3 Height 159 cm (09/09/23 10:50 AM) 159 cm (09/09/23 10:38 AM) 159 cm (09/09/23 4:57 AM) Weight 61.0 kg (09/09/23 4:57 AM) 60.7 kg (09/08/23 4:47 AM) Oxygen Saturation [94-100 %] 99 % (09/09/23 10:50 AM) 97 % (09/09/23 10:38 AM) 93 % *L* (09/09/23 4:57 AM) Pulse Rate [55-90 bpm] 82 bpm (09/09/23 10:50 AM) 70 bpm (09/09/23 10:38 AM) 89 bpm (09/09/23 8:00 AM) Body Mass Index [18.5-24.99 kg/m2] 24.13 kg/m2 (09/09/23 4:57 AM) 24.01 kg/m2 (09/08/23 4:47 AM) Blood Pressure [90-138/55-84 mm Hg] 117/64mm Hg (09/09/23 10:50 AM) 103/75mm Hg (09/09/23 10:38 AM) 134/95mm Hg (09/09/23 8:00 AM) Respiratory Rate [16-30 br/min] 16 br/min (09/09/23 10:38 AM) 18 br/min (09/09/23 4:57 AM) 18 br/min (09/08/23 8:56 PM) Temperature [96.8-100.4 DegF] 97.4 DegF (09/09/23 10:38 AM) 97.8 DegF (09/09/23 4:57 AM) 97.9 DegF (09/08/23 8:56 PM) Mode of Delivery (Oxygen) Room air (09/09/23 10:38 AM) Room air (09/09/23 4:57 AM) Room air (09/08/23 8:56 PM) Blood pressure sites Arm, left (09/09/23 10:38 AM) Arm, right (09/09/23 8:00 AM) Arm, left (09/09/23 4:57 AM) Temperature Route Oral (09/09/23 10:38 AM) Oral (09/09/23 4:57 AM) Oral (09/08/23 8:56 PM) Dry Weight 60.7 kg (09/08/23 4:47 AM) Weight Obtained Via Bed scale (09/09/23 4:57 AM) Social History Social History Type Response Tobacco Use: patient states she is quitting. Sex Admission evaluation note * Panda Saavedra MD: PERFORM Event Display: Admission Note Authored Date: Patient: ??CARMELO ROBISON ? Age:??67 Years?Sex:??Female?:??1955?? History of Present Illness This is a 67 y/o female with history of peripheral vascular disease, lung mass s/p resection, priorhistory of post op afib presents with atrial fibrillation. ?? The patient has been roughly in her usual state of health, though has had some nausea and exertional shortness of breath. She had an ankle revision scheduled for today, but she was noted to be in Afib at a rate of 110s. Surgery was cancelled and she was referred to the ED. ?? Of note, she developed afib post op for ankle surgery in February, ultimately required MARTINA with cardioversion and then was on Eliquis for four months. She later stopped, apparently because of bruising. She has not been on anticoagulation for several months. ?? In the ED: T 98.0 BP 130/76 HR 106 O2 96% RA WBC 6.7 HGB 9.2 (baseline) K 3.5 Cr 0.9 AST/ALT 37/48 AP 134 (at baseline) BNP 3,579 Trop 17 Viral negative CXR with pulm edema She was given 20mg IV lasix, 5mg IV metoprolol x2 and admitted. ?? ROS: As above, rest of full review negative. ?? Social: Lives independently ?? Objective Temperature?98.8 ?(08:58) Systolic Blood Pressure?137 ?(14:18) Diastolic Blood Pressure?97 ?(14:18) Pulse?114 ?(14:18) SpO2?96 ?(10:25) Respiratory Rate?22 ?(13:26) ?? Physical Exam GEN: Comfortable in bed HEENT: Moist membranes HEART: Warm extremities LUNGS: Breathing comfortably room air ABD: Soft, nontender : No aguilar EXT: Warm, no edema NEURO: Alert, oriented x3 PSYCH: Calm and cooperative Assessment/Plan Assessment:??67 y/o female with history of peripheral vascular disease, lung mass s/p resection, prior history of post op afib presents with atrial fibirllation ?? Atrial fibrillation with RVR (I48.91):??d Has had afib in the past, unclear how long she has been in fib based on??nonspecific recent symptoms. - increase metoprolol to 25mg Q6 hrs - hold amlodipine for now - start Eliquis - f/u [facility] consult? Pulmonary edema: Likely related to tachyarrythmia. - lasix 20mg IV BID - f/u echo? PVD (peripheral vascular disease) (I73.9):??d - hold aspirin - cont Plavix - cont statin ?? Mood: - cont Paxil ?? DIET - regular CODE - full DVT - eliquis ? Histories Past Medical History/Problem List Active Problems??(11) Acute hypoxemic respiratory failure Anxiety Eczema Hypercholesterolemia Hypertension Malignant Neoplasm of Breast (Female), Unspecified Peripheral vascular disease RSV bronchitis Tobacco abuse Urinary Frequency Vaginal dysplasia ? Medications Home Medications Amlodipine (amLODIPine 5 mg oral tablet)?1?tab(s)?5?Milligram?By Mouth?Daily Aspirin (aspirin 81 mg oral tablet)?1?tab(s)?81?Milligram?By Mouth?Daily Atorvastatin (atorvastatin 40 mg oral tablet)?1?tab(s)?40?Milligram?By Mouth?Daily Clopidogrel (Plavix 75 mg oral tablet)?75?Milligram?1?tablet?By Mouth?Daily Metoprolol (metoprolol 25 mg oral tablet, extended release)?25?Milligram?1?tablet?ByMouth?Daily Paroxetine (Paxil 20 mg oral tablet)?20?Milligram?1?tablet?By Mouth?Daily ? Inpatient Medications Medications (2) Active SCHEDULED: (2) Apixaban 5 mg Tablet (Apixaban Tablet) ??5 mg, By Mouth, 2 times a day Metoprolol 25mg Tablet (metoprolol 25 mg oral tablet) ??25 mg, By Mouth, Every 6 hours CONTINUOUS: (0) PRN: (0) ? EKG study * Event Display: ECG 12-Lead Authored Date: Please click on pdf link to open report * Event Display: ECG 12-Lead Authored Date: Ventricular Rate: 105 BPM QRS Duration: 92 ms Q-T Interval: 382 ms QTC Calculation(Bazett): 504 ms R [place]: 66 degrees T [place]: 169 degrees Atrial fibrillation with rapid ventricular response with premature ventricular or aberrantly conducted complexes Nonspecific T wave abnormality Abnormal ECG Confirmed by MAKAYLA CHRISTIANSON ([id number]) on 09/08/2023 6:03:47 PM [place] Hero: MAKAYLA CHRISTIANSON Heart * Event Display: Echocardiogram - Complete Authored Date: Transthoracic Echocardiography Report (TTE) Patient Demographics Patient Name CARMELO ROBISON Date of Study 09/09/2023 Corporate Gender Female Facility Race Ethnicity Date of 1955 Height: 62.99 inches Age 67 year(s) Weight: 130.07 pounds Accession Number [id number] BSA: 1.61 m2 Room Number [id number] BMI: 23.05 kg/m2 Referring Physician Keri Mosqueda MD Interpreting Ricci Roth MD Physician Digital Controls Technical Officer Carolyn Fontenot RCS Indications Heart failure. Clinical History Breast Ca COPD. PVD Bilateral iliac artery stenting 2020 Former tobacco use. Hypercholesterolemia. Hypertension. Atrial fibrillation. Dyslipidemia. Study Data Type of Study TTE procedure:Echo Complete-Doppler, Colorflow, M-Mode. Study Date09/09/2023 Start Time: 08:03 AM Study Location: [facility] Adult Echo Study Status: Bedside Patient Status: Routine Technical Quality: Technically difficult due to rib artifact. Blood Pressure:112/75 mmHg EKG: Normal sinus rhythm HR: 78 bpm 2D Measurements LV Diastolic Dimension: 3.8 cm LV Systolic Dimension: 2.7 cm LV Septum Diastolic: 1.5 cm LV PW Diastolic: 1.5 cm AO Root Dimension: 2.6 cm LA Dimension: 5.7 cm LA ESV (BP):129 ml LVOT Stroke Volume: 29.25 ml LA ESV Index: 80 ml/m2 Stroke Volume Index18.17 ml/m2 LVOT: 1.8 cm Cardiac Index:1.42 l/min/m2 Ascending Aorta:3 cm Doppler Measurements AV Peak Velocity: 135 cm/s MV Peak E-Wave: 148 cm/s AV Peak Gradient: 7.29 mmHg MV P1/2t: 58 msec LVOT Peak Velocity: 69.5 cm/s LVOT VTI11.5 cm MV Deceleration Time: 197 msec MV MR: 1136 mmHg/s TR Velocity:257 cm/s MV Area (PHT): 3.79 cm2 TR Gradient:26.42 mmHg PV Peak Velocity: 64.2 cm/s PV Peak Gradient: 1.65 mmHg Cardiac Anatomy Left Ventricle/Interventricular Septum The left ventricular size is normal. The left ventricular wall thickness is moderately increased. The LV systolic function is normal. The left ventricular ejection fraction is 60-65%. There are no definite regional wall motion abnormalities. Unable to assess diastolic function due to atrial fibrillation. Left Atrium/Interatrial Septum The left atrium is severely dilated. Aortic Valve The aortic valve is probably trileaflet . The aortic valve appears mildly calcified. There is no aortic stenosis. There is no aortic regurgitation. Mitral Valve There is mild mitral annular calcification. The mitral valve appears mildly thickened. There is mild to moderate mitral regurgitation. Aorta The ascending aorta and aortic root are normal in size. Right Ventricle The right ventricle is normal in size. Right ventricular systolic function is mildly to moderately reduced. Right Atrium The right atrium is severely dilated. Pulmonic Valve The pulmonic valve is poorly visualized. Tricuspid Valve The tricuspid valve is grossly normal. There is mild to moderate tricuspid valve regurgitation. Pumonary Artery There is moderate pulmonary hypertension. The pulmonary artery systolic pressure estimation is 55-60 mmHg. Venous Structures Inferior vena cava inspiratory collapse is blunted . Pericardium/Extracardiac There is no significant pericardial effusion. Summary 1) The LV systolic function is normal. The left ventricular ejection fraction is 60-65%. There are no definite regional wall motion abnormalities. 2) The left ventricular wall thickness is moderately increased. 3) The right ventricle is normal in size. Right ventricular systolic function is mildly to moderately reduced. 4) Severe biatrial dilation 5) There is mild mitral annular calcification. The mitral valve appears mildly thickened. There is mild to moderate mitral regurgitation. 6) The tricuspid valve is grossly normal. There is mild to moderate tricuspid valve regurgitation. 7) There is moderate pulmonary hypertension. The pulmonary artery systolic pressure estimation is 55-60 mmHg. Comparison Comparison is made to the study of February 06, 2023. Estimated pulmonary artery pressure is higher Signature * Event Display: Echocardiogram - Complete Authored Date: Cardiology * Event Display: Cardiac Rhythm Strips Authored Date: * Event Display: Cardiac Rhythm Strips Authored Date: * Event Display: Cardiac Rhythm Strips Authored Date: * Event Display: Cardiac Rhythm Strips Authored Date: * Event Display: Cardiac Rhythm Strips Authored Date: Hospital Progress note * Alea Cao: PERFORM, SIGN, VERIFY Event Display: Progress Note Hospital Authored Date: Patient: CARMELO ROBISON Age: 67 years Sex: Female : 1955 Associated Diagnoses: None Author: Alea Cao Findings Problem Related to Alteration in Cardiac Function (new) : Alteration in Cardiac Function/new 09/09/2023 7:00 EST Alteration in Cardiac Status Related to Other: afib RVR Goals & Outcomes, Cardiac Status Pt will resume/maintain adequate cardiac output, Pt will resume/maintain adequate hemodynamic status, Pt will resume/maintain adequate respiratory function, Pt will resume/maintain intact neuro function, Pt will maintain adequate GI/ function appropriate for pt, Pt will maintain adequate nutrition status, Pt/caregiver will state understanding of diagnosis, Pt/caregiver will state strategies to reduce risk factors Cardiac Interventions Implemented Assess/monitor cardiac status, Assess/monitor neuro status, Assess/monitor respiratory status, Assess for tolerance of IV infusions; verify rate & dose, Document& Monitor O2 Sats; Administer O2 as ordered, If no bowel movement in 3 days activate bowel regime, Monitor & document daily weight, Obtain 12 Lead ECG and CXR as ordered, Teach/encourage deepbreath & cough exercises Goals/Interventions, Cardiac Yes Cardiac, Problem Start 09/08/2023 6:25 Reviewed Plan with, Cardiac Status Patient Patient Progression, Cardiac Status Patient progressing according to plan . Evaluation Patient A&O x4. Afib on tele. Denies chest pain, palpitations, and SOB. No edema. + pulses. On room air with no s/s of resp distress, lung sounds clear. Patient ambulating independently in the room. All Meds given per OCT. PRN Tylenol administered for 4/10 lower back pain. Bed locked in lowest p osition.Call scott and belongings in reach. Frequent rounding maintained. . * Rocael SAVAGE, Sole Gutierrez: PERFORM, MODIFY Event Display: Progress Note Hospital Authored Date: [id number] Patient: ??CARMELO ROBISON ? Age:??67 Years?Sex:??Female?:??1955?? Subjective Cardiology follow-up for: afib, heart failure Telemetry: afib 80-90s Review of Systems Dyspnea and orthopnea significantly improved. She has walked around a little without significant issue. She denies chest pain, palpitations, edema. Objective Measurements?? Height: 159 cm (09/09/23) Weight: 61 kg (09/09/23) Dry Weight: 60.7 kg (09/08/23) Body Mass Index: 24.13 kg/m2 (09/09/23) ? Vital Signs?? Temperature: 97.8 DegF (09/09/23 04:57:00) Temperature Route: Oral (09/09/23 04:57:00) Pulse Rate: 89 bpm (09/09/23 08:00:00) Respiratory Rate: 18 br/min (09/09/23 04:57:00) Systolic Blood Pressure: 134 mm Hg (09/09/23 08:00:00) Diastolic Blood Pressure:??95 mm Hg??High (09/09/23 08:00:00) Blood pressure sites: Arm, right (09/09/23 08:00:00) Mean Arterial Pressure: 87 mm Hg (09/09/23 04:57:00) Pulse Pressure: 37 mm Hg (09/09/23 04:57:00) Oxygen Saturation:??93 %??Low (09/09/23 04:57:00) Mode of Delivery (Oxygen): Room air (09/09/23 04:57:00) Early Warning Score: 4 (09/09/23 08:39:27) ? Intake/Output? 09/07 13:49 09/09 07:00 09/08 07:00 09/07 07:00 09/06 07:00 ?? 09/09 09:49 09/09 09:49 09/09 06:59 09/08 06:59 09/07 06:59 Intake ?360 ?0 ?360 ?0 ?0 Output ?0 ?0 ?0 ?0 ?0 Net Total ?360 ?0 ?360 ?0 ?0 ? Urine Count ?4 ?0 ?4 ?0 ?0 ? Physical Exam NEURO: AAOx3, no focal deficits, moving all extremities spontaneously HEENT: Moist mucous membranes, head atraumatic, pupils equal/round RESPIRATORY: Clear to auscultation bilaterally. No wheezes, rales, or rhonchi. CARDIOVASCULAR: irregularly irregular, no murmurs/rubs/gallops ABDOMEN: Non-distended, +BS, soft, NTTP EXTREMITIES: No LE edema, erythema, or skin changes SKIN: Warm, dry, well-perfused _ Home Medications Amlodipine (amLODIPine 5 mg oral tablet)?1?tab(s)?5?Milligram?By Mouth?Daily Aspirin (aspirin 81 mg oral tablet)?1?tab(s)?81?Milligram?By Mouth?Daily Atorvastatin (atorvastatin 40 mg oral tablet)?1?tab(s)?40?Milligram?By Mouth?Daily at bedtime Clopidogrel (Plavix 75 mg oral tablet)?75?Milligram?1?tablet?By Mouth?Daily Metoprolol (metoprolol 25 mg oral tablet, extended release)?25?Milligram?1?tablet?ByMouth?Daily Paroxetine (Paxil 20 mg oral tablet)?20?Milligram?1?tablet?By Mouth?Daily ? Inpatient Medications Medications (6) Active SCHEDULED: (6) Apixaban 5 mg Tablet (Apixaban Tablet) ??5 mg, By Mouth, 2 times a day Atorvastatin 40 mg Tablet (atorvastatin 40 mg oral tablet) ??40 mg, By Mouth, Daily Clopidogrel 75 mg Tablet (Plavix 75 mg oral tablet) ??75 mg, By Mouth, Daily Furosemide 40 mg Tablet (Lasix 40 mg oral tablet) ??40 mg, By Mouth, Daily Metoprolol 25mg Tablet (metoprolol 25 mg oral tablet) ??25 mg, By Mouth, Every 6 hours Paroxetine 20 mg Tablet (Paxil 20 mg oral tablet) ??20 mg, By Mouth, Daily CONTINUOUS: (0) PRN: (0) ? Results Recent Labs BLOOD COUNT & DIFF WBC 6.1 k/mm3 ()?? 09/08/2023 09:12 RBC 3.92 m/mm3 (Low)?? 09/08/2023 09:12 Hgb 9.2 Gm/dL (Low)?? 09/08/2023 09:12 Hct 29.9 % (Low)?? 09/08/2023 09:12 MCV 76.3 femtoliters (Low)?? 09/08/2023 09:12 MCH 23.5 pg (Low)?? 09/08/2023 09:12 MCHC 30.8 g/dL (Low)?? 09/08/2023 09:12 Platelet Count 443 k/mm3 ()?? 09/08/2023 09:12 RDW-SD 46.7 femtoliters ()?? 09/08/2023 09:12 MPV 8.7 femtoliters (Low)?? 09/08/2023 09:12 Nucleated RBC (Automated) 0.0 #/100 WBC'S ()?? 09/08/2023 09:12 Abs. NRBC 0.0 k/mm3 ()?? 09/08/2023 09:12 ?? CHEM GENERAL Sodium 137 mmol/L ()?? 09/08/2023 09:12 Potassium 3.6 mmol/L ()?? 09/08/2023 09:12 Chloride 99 mmol/L ()?? 09/08/2023 09:12 Bicarbonate Level 23 mmol/L ()?? 09/08/2023 09:12 Anion Gap 15 ()?? 09/08/2023 09:12 Glucose Level 119 mg/dL (High)?? 09/08/2023 09:12 BUN 22 mg/dL ()?? 09/08/2023 09:12 Creatinine-Blood 0.9 mg/dL ()?? 09/08/2023 09:12 Estimated GFR Creatinine 70 ML/MIN/1.73 M2 ()?? 09/08/2023 09:12 ?? URINE OTHER Est Creatinine Clearance 49.97 mL/min ()?? 09/08/2023 04:52 ? LFT?? No qualifying data available. ?? Microbiology ?? COVID-19, RSV, and Flu A/B, Rapid PCR?? Completed?? Source: Nasal Body Site: Nose Collected Dt/Tm: 09/07/2023 09:06 Last Updated Dt/Tm: 09/07/2023 12:29 ? Cardiology Labs Nt-Probnp:??3579 pg/mL??High (09/07/23 10:45:00) High Sensitivity Troponin (HSTnT):??17 ng/L??High (09/07/23 10:45:00) ?? Blood Gases?? No qualifying data available. ?? Assessment/Plan ??1. Afib Would switch metoprolol to 50mg XL daily, Eliquis for a/c. She is rate controlled; spoke to pt about contacting her tailor apprentice in [place] upon discharge to arrange for follow-up and possible cardioversion. ?? 2. Mild heart failure Improved with IV Lasix. Would stop today and d/c on lasix 20mg po daily. Echo revealed preserved EF, mod pulm htn, and mild to mod??RV dysfunction. ?? Discussed with Dr. Vázquez * Kathie WESTFALL, Grayson Velarde: PERFORM Event Display: Progress Note Hospital Authored Date: PT seen and examined with Sole Cote. All clinical information reviewed. Physical exam with lungs clear, irregular rhythm, no edema. Rate controlled on metoprolol, continue Eliquis. Lasix 20 mg/d. Stable for D/C will see her primary tailor apprentice for further mgmt. * Jeremy WESTFALL, Merrick: PERFORM, MODIFY, MODIFY Event Display: Progress Note Hospital Authored Date: Patient: ??CARMELO ROBISON ? Age:??67 Years?Sex:??Female?:??1955?? Subjective No acute overnight events. ??The patient made hemodynamically stable. Heart rate??better controlled however continues to feel short of breath upon examination. Review of Systems Negative except as above Social History Alcohol Details:??Use: Current. ??Frequency: 1-2 times per year. Employment/School Details:??Status: Employed. ??Other: [employer]. Exercise Details:??Self assessment: Good condition. ??Regular exercise: No. Home/Environment Details:??Living situation: Home/Independent. ??Lives with: nephew. Nutrition/Health Details:??Diet: Regular. Substance Abuse Details:??Use: Never. Tobacco Details:??Use: patient states she is quitting. ? Family History Mother: Hypertension Brother: Hypertension ? Objective Vital Signs?? Temperature: 97.6 DegF (09/08/23 09:59:00) Temperature Route: Axillary (09/08/23 09:59:00) Pulse Rate:??95 bpm??High (09/08/23 14:35:00) Respiratory Rate: 18 br/min (09/08/23 09:59:00) Systolic Blood Pressure:??86 mm Hg??Low (09/08/23 14:35:00) Diastolic Blood Pressure: 73 mm Hg (09/08/23 14:35:00) Blood pressure sites: Arm, left (09/08/23 14:34:00) Mean Arterial Pressure: 77 mm Hg (09/08/23 14:34:00) Pulse Pressure: 13 mm Hg (09/08/23 14:34:00) Oxygen Saturation: 94 % (09/08/23 09:59:00) Mode of Delivery (Oxygen): Room air (09/08/23 09:59:00) Early Warning Score: 5 (09/08/23 14:36:40) ? Physical Exam Constitutional: Alert, in no acute distress. Neck: Supple. No JVD. Respiratory: Clear to auscultation. No wheezing or crackles. No use of accessory muscles. Cardiovascular: S1S2 regular. No murmurs, rubs or gallops. Gastrointestinal: Abdomen soft, non-tender, non-distended. Normal bowel sounds. Extremities: No lower extremity pitting edema. No cyanosis or clubbing. Neurologic: AAOx3, Speech normal. No focal neurological deficits. _ Home Medications Amlodipine (amLODIPine 5 mg oral tablet)?1?tab(s)?5?Milligram?By Mouth?Daily Aspirin (aspirin 81 mg oral tablet)?1?tab(s)?81?Milligram?By Mouth?Daily Atorvastatin (atorvastatin 40 mg oral tablet)?1?tab(s)?40?Milligram?By Mouth?Daily at bedtime Clopidogrel (Plavix 75 mg oral tablet)?75?Milligram?1?tablet?By Mouth?Daily Metoprolol (metoprolol 25 mg oral tablet, extended release)?25?Milligram?1?tablet?ByMouth?Daily Paroxetine (Paxil 20 mg oral tablet)?20?Milligram?1?tablet?By Mouth?Daily ? Inpatient Medications Medications (7) Active SCHEDULED: (7) Apixaban 5 mg Tablet (Apixaban Tablet) ??5 mg, By Mouth, 2 times a day Atorvastatin 40 mg Tablet (atorvastatin 40 mg oral tablet) ??40 mg, By Mouth, Daily Clopidogrel 75 mg Tablet (Plavix 75 mg oral tablet) ??75 mg, By Mouth, Daily Furosemide Inj (Lasix ??Inj) ??20 mg 2 mL, IV Push Slowly, 2 times a day Influenza Quad Adult High Dose (> 65yr) Fluzone 0.7mL (Influenza, Quad High Dose Vaccine (Fluzone High Dose)) ??0.7 mL, Intramuscular, Once Metoprolol 25mg Tablet (metoprolol 25 mg oral tablet) ??25 mg, By Mouth, Every 6 hours Paroxetine 20 mg Tablet (Paxil 20 mg oral tablet) ??20 mg, By Mouth, Daily CONTINUOUS: (0) PRN: (0) ? Results Recent Labs BLOOD COUNT & DIFF WBC 6.1 k/mm3 ()?? 09/08/2023 09:12 RBC 3.92 m/mm3 (Low)?? 09/08/2023 09:12 Hgb 9.2 Gm/dL (Low)?? 09/08/2023 09:12 Hct 29.9 % (Low)?? 09/08/2023 09:12 MCV 76.3 femtoliters (Low)?? 09/08/2023 09:12 MCH 23.5 pg (Low)?? 09/08/2023 09:12 MCHC 30.8 g/dL (Low)?? 09/08/2023 09:12 Platelet Count 443 k/mm3 ()?? 09/08/2023 09:12 RDW-SD 46.7 femtoliters ()?? 09/08/2023 09:12 MPV 8.7 femtoliters (Low)?? 09/08/2023 09:12 Nucleated RBC (Automated) 0.0 #/100 WBC'S ()?? 09/08/2023 09:12 Abs. NRBC 0.0 k/mm3 ()?? 09/08/2023 09:12 Abs. Neut 4.8 k/mm3 ()?? 09/07/2023 10:45 Abs. Lymph 1.3 k/mm3 ()?? 09/07/2023 10:45 Abs. Fannin 0.4 k/mm3 ()?? 09/07/2023 10:45 Abs. Eo 0.1 k/mm3 ()?? 09/07/2023 10:45 Abs. Baso 0.1 k/mm3 ()?? 09/07/2023 10:45 Neut % 71.4 % ()?? 09/07/2023 10:45 Lymph % 19.4 % ()?? 09/07/2023 10:45 Fannin % 6.3 % ()?? 09/07/2023 10:45 Eos % 1.2 % ()?? 09/07/2023 10:45 Baso % 1.1 % ()?? 09/07/2023 10:45 Imm Gran 0.6 % ()?? 09/07/2023 10:45 Abs. Imm Gran 0.0 k/mm3 ()?? 09/07/2023 10:45 ?? CARDIAC Nt-Probnp 3579 pg/mL (High)?? 09/07/2023 10:45 High Sensitivity Troponin (HSTnT) 17 ng/L (High)?? 09/07/2023 10:45 ?? CHEM GENERAL Sodium 137 mmol/L ()?? 09/08/2023 09:12 Potassium 3.6 mmol/L ()?? 09/08/2023 09:12 Chloride 99 mmol/L ()?? 09/08/2023 09:12 Bicarbonate Level 23 mmol/L ()?? 09/08/2023 09:12 Anion Gap 15 ()?? 09/08/2023 09:12 Glucose Level 119 mg/dL (High)?? 09/08/2023 09:12 BUN 22 mg/dL ()?? 09/08/2023 09:12 Creatinine-Blood 0.9 mg/dL ()?? 09/08/2023 09:12 Estimated GFR Creatinine 70 ML/MIN/1.73 M2 ()?? 09/08/2023 09:12 Calcium 9.0 mg/dL ()?? 09/07/2023 10:45 Protein, Total 6.6 Gm/dL ()?? 09/07/2023 10:45 Albumin 4.3 Gm/dL ()?? 09/07/2023 10:45 AG Ratio 1.9 ()?? 09/07/2023 10:45 Alkaline Phosphatase 134 units/L (High)?? 09/07/2023 10:45 AST (SGOT) 37 units/L (High)?? 09/07/2023 10:45 ALT (SGPT) 48 units/L (High)?? 09/07/2023 10:45 Bilirubin, Total 0.5 mg/dL ()?? 09/07/2023 10:45 Lactate 1.0 mmol/L ()?? 09/07/2023 10:45 ?? HEME OTHER Hold Blue Top SPECIMEN DISCARDED AFTER 4 HOURS. ()?? 09/07/2023 10:45 ?? URINE OTHER Est Creatinine Clearance 49.97 mL/min ()?? 09/08/2023 04:52 ?? VIROLOGY Influenza A PCR NEGATIVE ()?? 09/07/2023 10:45 Influenza B PCR NEGATIVE ()?? 09/07/2023 10:45 RSV PCR NEGATIVE ()?? 09/07/2023 10:45 COVID-19 PCR Specimen Source NASAL ()?? 09/07/2023 10:45 COVID-19 PCR Result NEGATIVE ()?? 09/07/2023 10:45 ? Assessment/Plan ? Diagnoses Atrial fibrillation with RVR ??(I48.91) PVD (peripheral vascular disease) ??(I73.9) ? 67 y/o female with history of peripheral vascular disease, lung mass s/p resection, prior history of post op afib presents with atrial fibirllation ?? Atrial fibrillation with RVR (I48.91):??d Has had afib in the past, unclear how long she has been in fib based on??nonspecific recent symptoms. -Metoprolol??50 mg twice daily -Hold amlodipine for now??unless hypertensive. -Continue with Eliquis -Needs to follow-up as an outpatient for possible cardioversion. -Follow-up echo -Appreciate cardiology recommendations.? Pulmonary edema: Likely related to tachyarrythmia. -Lasix 20mg IV BID -f/u echo? PVD (peripheral vascular disease) (I73.9):??d -hold aspirin -cont Plavix -cont statin ?? Mood: - cont Paxil ?? DIET - regular CODE - full DVT - eliquis Discharge Planning:??Likely home in a.m.??once??patient improved symptomatically./Pending echo. ? Patient hpotensive with??SBP down to 886, will hold??metoprolol Lasix for right now. ?? Consult note * Kathie WESTFALL, Grayson Velarde: MODIFY Event Display: Consultation Note Authored Date: [id number] CONSULTATION DATE: 09/07/2023 CARDIOLOGY CONSULTATION ATTENDING PHYSICIAN: Dr. Saavedra. PRIMARY MANAGER MOBILITY: Dr. Scott, although she has not been seen in the office. She has been seen by [facility]. HISTORY OF PRESENT ILLNESS: The patient is a 67-year-old female with history of peripheral vasculardisease, prior history of atrial fibrillation, who was sent to Emergency Department for finding of atrial fibrillation in a preoperative area for orthopedic surgery. She has had 2 weeks of dyspnea and palpitations. No exertional chest pain. Past medical history includes peripheral vascular disease,hypertension, hyperlipidemia, status post ankle surgery in 02/2023. She was seen by [facility] over a week ago. Echocardiogram and stress test were ordered although I have not yet been performed. She reports that intermittently she has had palpitations and irregular heartbeats that will last a few moments. REVIEW OF SYSTEMS: Completed, negative except as noted above. PAST MEDICAL HISTORY: As detailed above. HOME MEDICATIONS: As listed in [facility]. FAMILY HISTORY: No history of premature coronary artery disease. SOCIAL HISTORY: Retired. Occasionally drinks alcohol. Active smoking. PHYSICAL EXAMINATION: VITAL SIGNS: Normal temperature, heart rate 104-114, blood pressure 137/97. GENERAL: Alert, in no apparent distress. HEENT: NC/AT. NECK: Supple. No JVD. HEART: Irregularly irregular rhythm. No significant murmurs. ABDOMEN: Soft, nontender, nondistended. Bowel sounds present. EXTREMITIES: Warm, well perfused. NEUROLOGIC: AAO x3. No gross focal neurological deficits. PSYCHIATRIC: Affect appropriate. Mood calm. SKIN: Warm and dry. LABORATORY DATA: Reviewed. Mild anemia, hemoglobin 9.2 from baseline around 10.3. Creatinine is normal. LFTs mildly elevated. N-terminal proBNP is 3597. DIAGNOSTIC DATA: Chest x-ray shows evidence of interstitial pulmonary edema. EKG dated 02/07/2023 documented normal sinus rhythm. EKG from earlier this morning showed AFib with rapid ventricular response at 105 beats per minute. IMPRESSION: 1. Preoperative orthopedic procedure. 2. Acute on chronic atrial fibrillation. RECOMMENDATIONS: The patient was identified to have atrial fibrillation of unclear onset, although symptomatically She may have had more sustained elevated ventricular rates over the past couple weeks. She has not been treated with anticoagulation and so is not appropriate candidate for cardioversion without MARTINA. I would favor approach with rate control and anticoagulation. I agree with Eliquis, which has been started, would start the patient on metoprolol. She does have evidence of mild congestive heart failure. Would start with Lasix 20 IV b.i.d. and assess response. Echocardiogram is reasonable though I did note that echo from last February was fairly unremarkable. Assuming her ventricular rates are adequately controlled with a rate control strategy, I would plan for outpatient cardioversion with her primary tailor apprentice after a few weeks of anticoagulation I appreciate the opportunity to participate in the care of this patient. Please feel free to contact me with any questions or concerns. Dictated by: Grayson Vázquez M.D. Signing Clinician: Grayson Vázquez M.D. Dictated: 09/07/2023 02:30:01 Transcribed: 09:08:07 AM Transcribed by: JEWELL DocID: [id number] PRELIMINARY REPORT UNLESS MANUALLY/ELECTRONICALLY SIGNED cc: Panda Saavedra M.D. [address], [address] Note * Alea Cao: PERFORM Event Display: Discharge/Transfer Note Hospital Authored Date: [id number] Nursing Discharge Note Entered On: 09/09/2023 15:47 EST Performed On: 09/09/2023 15:47 EST by Alea Cao Nursing Discharge Note 2 Discharge Time : 09/09/2023 15:47 EST Discharge Level of Care at Discharge : Home/Care Home/Foster Care Patient Left Unit Via : Wheelchair Patient Accompanied Off Unit with : Responsible adult DC Instructions Provided & Signed by Pt : Yes Patient Understands D/C Instructions : Yes Patient Instructions Discharge Signed : Yes Did Pt have Specialty Bed or Wound Vac : No Alea Cao - 09/09/2023 15:47 EST * Jeremy WESTFALL, Lizbeth: PERFORM, MODIFY, MODIFY Event Display: Discharge/Transfer Note Hospital Authored Date: [id number] Patient: ??CARMELO ROBISON ? Age:??67 Years?Sex:??Female?:??1955?? Patient Information Discharge Location: Primary Care Physician: Eric WESTFALL , Wilma Cornejo Admit Date/Time: 09/07/23 13:49 Discharge Disposition Discharge Disposition: Home: No Services Discharge Diagnosis Atrial fibrillation with RVR (I48.91) PVD (peripheral vascular disease) (I73.9) ?? _ Discharge Medications apixaban (apixaban Starter Pack 5 mg oral tablet)?5?Milligram?By Mouth?2 times a day Atorvastatin (atorvastatin 40 mg oral tablet)?1?tab(s)?40?Milligram?By Mouth?Daily at bedtime Clopidogrel (Plavix 75 mg oral tablet)?75?Milligram?1?tablet?By Mouth?Daily Furosemide (Lasix 20 mg oral tablet)?20?Milligram?1?tablet?By Mouth?Daily Metoprolol (metoprolol 50 mg oral tablet, extended release)?50?Milligram?1?tablet?ByMouth?Daily Paroxetine (Paxil 20 mg oral tablet)?20?Milligram?1?tablet?By Mouth?Daily ? Quality Measures Tobacco Use Treatment:? Medications Started -Starting metoprolol XL 50 daily (afternoon) -Starting apixaban 5 mg twice daily -Starting Lasix 20 mg daily (morning) Medications Discontinued Amlodipine Aspirin Doses Changed As above PCP Follow-Up/Heads-Up - Repeat blood work - Follow-up on discharge. - Please review list of medications. - Continue management of??multiple medical comorbidities. Hospital Course ?? Aspirin was discontinued since anticoagulation was started.67 y/o female with history of peripheral vascular disease, lung mass s/p resection, prior history of post op afib presents with atrial??fibrillation presented to emergency department with primary complaint of exertional shortness of breath after her surgery was canceled when she was noted to be in A-fib with RVR. ?? Patient was followed with cardiology and her home dose of metoprolol was increased.?? Given [id number], she was initiated on Eliquis.?? Also noted to have pulmonary edema most likely in setting of tachyarrhythmia and initiated on IV Lasix with appropriate diuresis. Echo was obtained which showed preserved ejection fraction however severe by atrial dilation.?? Amlodipine was held??given??she was normotensive high doses of metoprolol. She needs to follow-up with her tailor apprentice as an outpatient for continued management of atrial fibrillation. Patient was noted to be dizzy on high doses of Lasix and beta-ramos hence that she was dischargedon lower dose which she tolerated appropriately. ?? Patient expressed understanding of discharge plan agreed with the plan. ?? Objective . Physical Exam Constitutional: Alert, in no acute distress. Neck: Supple. No JVD. Respiratory: Clear to auscultation. No wheezing or crackles. No use of accessory muscles. Cardiovascular:??Irregularly irregular rhythm. No murmurs, rubs or gallops. Gastrointestinal: Abdomen soft, non-tender, non-distended. Normal bowel sounds. Extremities: No lower extremity pitting edema. No cyanosis or clubbing. Neurologic: AAOx3, Speech normal. No focal neurological deficits. Pending Results No Pending Results Follow-Up Appointments Added Follow Up ?Time Frame ?Comments Eric WESTFALL , Wilma Cornejo Patient Instructions ??? Please follow the primary care physician for administer medication repeating a set of blood work. ??? Please follow-up with tailor apprentice for continued management of atrial fibrillation. ??? Present to the emergency department if you need the following symptoms including but not admitted to chest pain, palpitations, shortness of breath or any other issues. ??? You are on blood thinners, if you have trauma to head/fall please present to the emergency department immediately. ? Medication changes are as follows: -Stopping amlodipine -Stopping Aspirin -Starting metoprolol XL 50 daily (afternoon) -Starting apixaban 5 mg twice daily -Starting Lasix 20 mg daily (morning) Post Discharge Care Discharge ?09/09/23 14:04:00 EST Home Health Face to Face ^HomeHealthFTF Results Discharge Labs BLOOD COUNT & DIFF WBC 6.1 k/mm3 ()?? 09/08/2023 09:12 RBC 3.92 m/mm3 (Low)?? 09/08/2023 09:12 Hgb 9.2 Gm/dL (Low)?? 09/08/2023 09:12 Hct 29.9 % (Low)?? 09/08/2023 09:12 MCV 76.3 femtoliters (Low)?? 09/08/2023 09:12 MCH 23.5 pg (Low)?? 09/08/2023 09:12 MCHC 30.8 g/dL (Low)?? 09/08/2023 09:12 Platelet Count 443 k/mm3 ()?? 09/08/2023 09:12 RDW-SD 46.7 femtoliters ()?? 09/08/2023 09:12 MPV 8.7 femtoliters (Low)?? 09/08/2023 09:12 Nucleated RBC (Automated) 0.0 #/100 WBC'S ()?? 09/08/2023 09:12 Abs. NRBC 0.0 k/mm3 ()?? 09/08/2023 09:12 Abs. Neut 4.8 k/mm3 ()?? 09/07/2023 10:45 Abs. Lymph 1.3 k/mm3 ()?? 09/07/2023 10:45 Abs. Fannin 0.4 k/mm3 ()?? 09/07/2023 10:45 Abs. Eo 0.1 k/mm3 ()?? 09/07/2023 10:45 Abs. Baso 0.1 k/mm3 ()?? 09/07/2023 10:45 Neut % 71.4 % ()?? 09/07/2023 10:45 Lymph % 19.4 % ()?? 09/07/2023 10:45 Fannin % 6.3 % ()?? 09/07/2023 10:45 Eos % 1.2 % ()?? 09/07/2023 10:45 Baso % 1.1 % ()?? 09/07/2023 10:45 Imm Gran 0.6 % ()?? 09/07/2023 10:45 Abs. Imm Gran 0.0 k/mm3 ()?? 09/07/2023 10:45 ?? CARDIAC Nt-Probnp 3579 pg/mL (High)?? 09/07/2023 10:45 High Sensitivity Troponin (HSTnT) 17 ng/L (High)?? 09/07/2023 10:45 ?? CHEM GENERAL Sodium 137 mmol/L ()?? 09/08/2023 09:12 Potassium 3.6 mmol/L ()?? 09/08/2023 09:12 Chloride 99 mmol/L ()?? 09/08/2023 09:12 Bicarbonate Level 23 mmol/L ()?? 09/08/2023 09:12 Anion Gap 15 ()?? 09/08/2023 09:12 Glucose Level 119 mg/dL (High)?? 09/08/2023 09:12 BUN 22 mg/dL ()?? 09/08/2023 09:12 Creatinine-Blood 0.9 mg/dL ()?? 09/08/2023 09:12 Estimated GFR Creatinine 70 ML/MIN/1.73 M2 ()?? 09/08/2023 09:12 Calcium 9.0 mg/dL ()?? 09/07/2023 10:45 Protein, Total 6.6 Gm/dL ()?? 09/07/2023 10:45 Albumin 4.3 Gm/dL ()?? 09/07/2023 10:45 AG Ratio 1.9 ()?? 09/07/2023 10:45 Alkaline Phosphatase 134 units/L (High)?? 09/07/2023 10:45 AST (SGOT) 37 units/L (High)?? 09/07/2023 10:45 ALT (SGPT) 48 units/L (High)?? 09/07/2023 10:45 Bilirubin, Total 0.5 mg/dL ()?? 09/07/2023 10:45 Lactate 1.0 mmol/L ()?? 09/07/2023 10:45 ?? HEME OTHER Hold Blue Top SPECIMEN DISCARDED AFTER 4 HOURS. ()?? 09/07/2023 10:45 ? URINE OTHER Est Creatinine Clearance 49.97 mL/min ()?? 09/08/2023 04:52 ? VIROLOGY Influenza A PCR NEGATIVE ()?? 09/07/2023 10:45 Influenza B PCR NEGATIVE ()?? 09/07/2023 10:45 RSV PCR NEGATIVE ()?? 09/07/2023 10:45 COVID-19 PCR Specimen Source NASAL ()?? 09/07/2023 10:45 COVID-19 PCR Result NEGATIVE ()?? 09/07/2023 10:45 ? 31??minutes spent on discharge * Thuy Marcum RN: PERFORM Event Display: Patient Education/Instruction Authored Date: [id number] Inpatient Adult Discharge Instructions. [address] [address] Name: CARMELO ROBISON : 1955?? Visit: 09/07/2023 13:49?? Current Date: 09/09/2023 14:07 ?? Account: [id number]?? Inpatient Adult Discharge Instructions We would like to thank you for allowing us to assist you with your healthcare needs. The following includes patient education materials and information regarding your injury/illness. Our entire staffstrives to provide an excellent experience for our patients and their families. PLEASE ENSURE YOU FOLLOW-UP PER THE INSTRUCTIONS BELOW! ?? YOUR OPINION IS IMPORTANT TO US! Please complete the survey you may receive by mail or email. Your feedback will be used to make improvements to the healthcare experiences of our patients and their families. Surveys are administered by [employer] ?? If further treatment with your primary care physician or another doctor is recommended, it is important for you to keep the appointment. Call your primary care physician or return to the Emergency Department immediately if your condition worsens, fails to improve, or new symptoms develop. If you need to find a doctor, you can call [facility] for a referral at [phone] or toll free at [phone]) or log in to [email or web address].. ?? [facility], in keeping with [facility] guidance, no longer requires face masks for staff, patientsor visitors in most situations. Similiar to time spent indoors at other locations, there is the chance that you were exposed to repiratory viruses during your time with us (such as flu or COVID-19). If you develop symptoms concerning for a viral respiratory infection, please seek testing (and treatment if indicated) from your medical provider or home test kit. ?? You can view and manage your care through the patient portal or by using a health care juvenal of your choosing. [employer] is a website that allows you to securely view your medical information including your hospital discharge summary, office visit summaries, medications and follow-up visits. You can also request appointments, renew medications, and request access to your medical information using a health care juvenal of your choosing, or just ask a question. You can enroll at [email or web address] or register during your next office visit. You have been discharged from [facility], Patient Care Unit: M5??. If you have any questions regarding these instructions, including results of studies pending, afteryou leave, please call us and we will be happy to assist you 28/02. [facility] Your Care Team Attending Physician Merrick Luna MD?? Consulting Providers Merrick Luna MD?? Discharging Providers Merrick Luna MD Reason for Your Visit a fib?? Your Diagnosis General medical PVD (peripheral vascular disease) Tests Performed Below is a partial list of the tests performed during your hospitalization. You may have had other tests and procedures not included in this list. Please discuss all test results with your provider. BUN CBC CBC w/ Differential Comprehensive Metabolic Panel COVID-19, RSV, and Flu A/B, Rapid PCR Creatinine Electrolytes Glucose Level High??Sensitivity??Troponin T HOLD BLUE TUBE Lactate Level ProBNP XR Chest 2 Views Frontal and Lat No tests performed during this visit.?? Primary Care Provider Eric WESTFALL , Wilma Cornejo? Discharge Vitals Temperature: 97.4 DegF Height: 159 cm Pulse Rate: 82 bpm Weight: 61 kg Respiratory Rate: 16 br/min Body Mass Index: 24.13 kg/m2 Systolic Blood Pressure: 117 mm Hg Body surface area: 1.64 Diastolic Blood Pressure: 64 mm Hg ?? Oxygen Saturation: 99 % ?? Studies Pending All studies ordered during this hospital stay have been completed unless listed below. Please discuss all pending results with your provider listed above in these instructions. ?? No incomplete studies found?? What to do next Instructions From Your Doctor ??? Please follow the primary care physician for administer medication repeating a set of blood work. ??? Please follow-up with tailor apprentice for continued management of atrial fibrillation. ??? Present to the emergency department if you need the following symptoms including but not admitted to chest pain, palpitations, shortness of breath or any other issues. ??? You are on blood thinners, if you have trauma to head/fall please present to the emergency department immediately. ? Medication changes are as follows: -Stopping amlodipine -Stopping Aspirin -Starting metoprolol XL 50 daily (afternoon) -Starting apixaban 5 mg twice daily -Starting Lasix 20 mg daily (morning) ?? Orders? 09/09/23 14:04:00 EST?? You Need to Schedule the Following Appointments Follow Up with??Eric WESTFALL , Wilma Cornejo Where: [address] [place] [address]- Discharge Medications CARMELO ROBISON :1955 Visit Date:09/07/2023 Medications: Please continue your medications until treatment is completed or stopped by your provider. Medications not listed below should be discontinued. Discuss any questions related to medications with your provider. What How Much When Instructions Next Dose New apixaban (apixaban Starter Pack 5 mg oral tablet) 5 Milligram Oral Twice a day Pickup at [place] [address] 09/09 9pm New Furosemide (Lasix 20 mg oral tablet) 1 tab(s) Oral Daily Pickup at [place] [address] 09/10 9am Changed Atorvastatin (atorvastatin 40 mg oral tablet) 1 tab(s) Oral Daily at Bedtime 09/09 9pm Changed Metoprolol (metoprolol 50 mg oral tablet, extended release) 1 tab(s) Oral Daily Pickup at [place] [address] 09/10 9am Unchanged Clopidogrel (Plavix 75 mg oral tablet) 1 tab(s) Oral Daily 09/10 9am Unchanged Paroxetine (Paxil 20 mg oral tablet) 1 tab(s) Oral Daily 09/10 9am Pharmacy Information [place] [address]: [address], [place] [phone] ?? What How Much When Comments Stop Taking Amlodipine (amLODIPine 5 mg oral tablet) 1 tab(s) Oral Daily Stop Taking Aspirin (aspirin 81 mg oral tablet) 1 tab(s) Oral Daily Prescription Given During Visit Furosemide (Lasix 20 mg oral tablet) - 1 tablet = 20 mg, By Mouth, Daily, # 30 tablet, 0 Refills, [address] [phone]?? Metoprolol (metoprolol 50 mg oral tablet, extended release) - 1 tablet = 50 mg, By Mouth, Daily, # 30 tablet, 0 Refills, [address] [address] [phone]?? apixaban (apixaban Starter Pack 5 mg oral tablet) - 5 mg, By Mouth, 2 times a day, # 60 tablet, 0 Refills, [address] [address] [phone]?? Laboratory Results Below is a partial list of the most recent Laboratory test results done prior to this discharge. You may have had other tests and procedures not included in this list. Please discuss all test resultswith your provider. Est Creatinine Clearance - 49.97 mL/min (09/08/2023) BUN (09/08/2023) ???BUN - 22 mg/dL CBC (09/08/2023) ???WBC - 6.1 k/mm3???RBC - 3.92 m/mm3???Hgb - 9.2 Gm/dL???Hct - 29.9 %???MCV - 76.3 femtoliters???MCH - 23.5 pg???MCHC - 30.8 g/dL???Platelet Count - 443 k/mm3???RDW-SD - 46.7 femtoliters???MPV - 8.7femtoliters???Nucleated RBC (Automated) - 0.0 #/100 WBC'S???Abs. NRBC - 0.0 k/mm3 CBC w/ Differential (09/07/2023) ???WBC - 6.7 k/mm3???RBC - 3.85 m/mm3???Hgb - 9.2 Gm/dL???Hct - 29.8 %???MCV - 77.4 femtoliters???MCH - 23.9 pg???MCHC - 30.9 g/dL???Platelet Count - 400 k/mm3???RDW-SD - 47.0 femtoliters???MPV - 8.8femtoliters???Nucleated RBC (Automated) - 0.0 #/100 WBC'S???Abs. NRBC - 0.0 k/mm3???Abs. Neut - 4.8 k/mm3???Abs. Lymph - 1.3 k/mm3???Abs. Fannin - 0.4 k/mm3???Abs. Eo - 0.1 k/mm3???Abs. Baso - 0.1 k/mm3???Neut % - 71.4 %???Lymph % - 19.4 %???Fannin % - 6.3 %???Eos % - 1.2 %???Baso % - 1.1 %???Imm Gran - 0.6 %???Abs. Imm Gran - 0.0 k/mm3 Comprehensive Metabolic Panel (09/07/2023) ???Sodium - 136 mmol/L???Potassium - 3.5 mmol/L???Chloride - 101 mmol/L???Bicarbonate Level - 23 mmol/L???Anion Gap - 12???Glucose Level - 114 mg/dL???BUN - 22 mg/dL???Creatinine-Blood - 0.9 mg/dL???Estimated GFR Creatinine - 73 ML/MIN/1.73 M2???Calcium - 9.0 mg/dL???Protein, Total - 6.6 Gm/dL???Albumin - 4.3 Gm/dL???AG Ratio - 1.9???Alkaline Phosphatase - 134 units/L???AST (SGOT) - 37 units/L???ALT (SGPT) - 48 units/L???Bilirubin, Total - 0.5 mg/dL COVID-19, RSV, and Flu A/B, Rapid PCR (09/07/2023) ???Influenza A PCR - NEGATIVE???Influenza B PCR - NEGATIVE???RSV PCR - NEGATIVE???COVID-19 PCR Specimen Source - NASAL???COVID-19 PCR Result - NEGATIVE Creatinine (09/08/2023) ???Creatinine-Blood - 0.9 mg/dL???Estimated GFR Creatinine - 70 ML/MIN/1.73 M2 Electrolytes (09/08/2023) ???Sodium - 137 mmol/L???Potassium - 3.6 mmol/L???Chloride - 99 mmol/L???Bicarbonate Level - 23 mmol/L???Anion Gap - 15 Glucose Level (09/08/2023) ???Glucose Level - 119 mg/dL High??Sensitivity??Troponin T (09/07/2023) ???High Sensitivity Troponin (HSTnT) - 17 ng/L HOLD BLUE TUBE (09/07/2023) ???Hold Blue Top - SPECIMEN DISCARDED AFTER 4 HOURS. Lactate Level (09/07/2023) ???Lactate - 1.0 mmol/L ProBNP (09/07/2023) ???Nt-Probnp - 3579 pg/mL Immunizations This Visit Given Vaccine Date influenza virus vaccine, inactivated 09/09/2023 Allergies (NKA means No Known Allergies) cefTRIAXone Problems Active Problems??(12) Acute hypoxemic respiratory failure?? Anxiety?? Eczema?? Hypercholesterolemia?? Hypertension?? Malignant Neoplasm of Breast (Female), Unspecified?? Peripheral vascular disease?? R forearm plate and screws after fx.?? RSV bronchitis?? Tobacco abuse?? Urinary Frequency?? Vaginal dysplasia?? Education Materials Below is the list of Educational Leaflet Providered with your Discharge Instructions. Valuables and Belongings I fully understand and agree that [facility] accepts no responsibility for all my personal property including clothing, toilet articles, radios, jewelry, dentures, hearing aids, rings, money, or any other property that is in my possession or is brought to me after admission. I understand certain valuables may be placed in a hospital safe for a short period of time. I understand that the hospital is not liable for loss or damage due to accident, fire, or other natural occurrence while said property is in the safe. I accept full responsibility for any personal property that I keep with me, and will not hold the hospital responsible in case of loss or disappearance. I acknowledge that i have been encouraged to send valuables and belongings home. ?? Review of Valuable and Belonging List: With patient Date for Pt to Sign Valuables/Belongings: 09/08/23 04:53:00 ?? Other Discharge Information ? Pulmonary Rehab Status?? Pulmonary Rehab Discharge Status?? Respiratory Rate: 16 br/min ? Common Emergency Awareness Tips IS IT A STROKE? Act FAST and Check for these signs: FACE Does the face look uneven? ARM Does one arm drift down? SPEECH Does their speech sound strange? TIME Call at any sign of stroke ?? Heart Attack Signs Chest discomfort: Most heart attacks involve discomfort in the center of the chest and lasts more than a few minutes, or goes away and comes back. It can feel like uncomfortable pressure, squeezing, fullness or pain. Discomfort in upper body: Symptoms can include pain or discomfort in one or both arms, back, neck, jaw or stomach. Shortness of breath: With or without discomfort. Other signs: Breaking out in a cold sweat, nausea, or lightheaded. Remember, MINUTES DO MATTER. If you experience any of these heart attack warning signs, call to get immediate medical attention! ?? Smoking can increase your chances of developing chronic health problems and can cause harmful effects to other family members in your house. If you smoke, you are strongly encouraged to quit. Please call [facility] [employer] Link at [phone] or [phone] ([phone]) or log in to [email or web address] for referrals to smoking cessation programs. ?? 238 Suicide & Crisis Lifeline is available 28/02 if you or someone you know needs to find a reason to keep living. By calling 797 you'll be connected to a skilled, trained counselor at a crisis center in your area. INPATIENT DISCHARGE INSTRUCTIONS SIGNATURE PAGE ENRIQUETA CARMELO Location:[facility] Registration Date and Time:09/07/2023 13:49 EST Primary Care Physician: Eric WESTFALL , Wilma Cornejo, Attending Physician: Jeremy WESTFALL, [facility], I CARMELO ROBISON, have received the above patient education materials/instructions and have verbalized understanding. If ambulance or transport services are being used I further acknowledge being given a choice of service. ?? If you need to contact me, please call me at this number: . Patient/Physical Therapy Teacher Name: Patient/Physical Therapy Teacher Signature: Relationship to Patient: Witness Name/Signature: Date: * Thuy Marcum RN: PERFORM Event Display: Patient Education Leaflets Authored Date: [id number] Apixaban Oral Tablet ?? [id number] Apixaban Oral Tablet Brands: Eliquis Uses This medicine is used for the following purposes: ??? blood disorder ??? prevent blood clots ??? treatment of blood clots ??? blood clot ?? Instructions This medicine may be taken with or without food. This medicine will work best if you take it at about the same time every day. Store at room temperature away from heat, light, and moisture. Do not keep in the bathroom. It is important that you keep taking each dose of this medicine on time even if you are feeling well. If you forget to take a dose on time, take it as soon as you remember. If it is almost time for thenext dose, do not take the missed dose. Return to your normal schedule. Do not take 2 doses at one time. Drug interactions can change how medicines work or increase risk for side effects. Tell your healthcare providers about all medicines taken. Include prescription and gexy-ccw-kargrxj medicines, vitamins, and herbal medicines. Speak with your doctor or pharmacist before starting or stopping any medicine. Talk to your doctor before taking other medicines, including aspirins and ibuprofen containing products. Speak to your doctor about which medicines are safe to use while you are on this medicine. It is very important that you follow your doctor's instructions for all blood tests. ?? Cautions This medicine may cause serious bleeding problems in patients taking blood thinner medications. Follow your doctor's instructions carefully to monitor your blood lab tests if you are on blood thinners. Tell your doctor and pharmacist if you ever had an allergic reaction to a medicine. This medicine may cause serious bleeding from the stomach or bowels. Stop this medicine and call your doctor immediately if you see any signs of bleeding. Bleeding can cause pain in the stomach, vomiting up liquid that looks like coffee grounds, and red or dark tarry stools. There is an increased risk of bleeding while on this medicine, please tell your doctor or nurse if you notice any excessive bleeding or bruising. Do not use the medication any more than instructed. Please check with your doctor before drinking alcohol while on this medicine. Do not breastfeed while on this medicine. This medicine can hurt a new baby in the womb. If you become while on this medicine, tell your doctor immediately. Your doctor may switch you to a different medicine. Do not take Lou's wort while on this medicine. Do not share this medicine with anyone who has not been prescribed this medicine. Some patients have serious side effects from this medicine. Ask your pharmacist to show you the information from the Food and Drug Administration (FDA) and discuss it with you. Always refill this medicine before it runs out. ?? Side Effects The following is a list of some common side effects from this medicine. Please speak with your doctor about what you should do if you experience these or other side effects. ??? nosebleeds Call your doctor or get medical help right away if you notice any of these more serious side effects: ??? bleeding or bruising ??? coughing up blood or vomit that looks like coffee grounds ??? fainting??? numbness or tingling in hands and feet ??? severe or persistent headache ??? sudden leg pain, swelling, warmth or redness ??? loss of movement anywhere on the body ??? shortness of breath ??? bloody or dark, tarry stools ??? symptoms of stroke (such as one-sided weakness, slurred speech, confusion) ??? difficulty swallowing ??? unusual or unexplained tiredness or weakness ??? blood in urine ??? blurring or changes of vision A few people may have an allergic reaction to this medicine. Symptoms can include difficulty breathing, skin rash, itching, swelling, or severe dizziness. If you notice any of these symptoms, seek medical help quickly. ?? Extra Please speak with your doctor, nurse, or pharmacist if you have any questions about this medicine. ?? [email or web address] IMPORTANT NOTE: This document tells you briefly how to take your medicine, but it does not tell youall there is to know about it. Your doctor or pharmacist may give you other documents about your medicine. Please talk to them if you have any questions. Always follow their advice. There is a more complete description of this medicine available in [place]. Scan this code on your smartphone or tablet or use the web address below. You can also ask your pharmacist for a printout. If you have any questions, please ask your pharmacist. The display and use of this drug information is subject to Terms of Use. Copyright(c) 2022 [employer]. ?? The [employer]. All rights reserved. This information is not intended as a substitute for professional medical care. Always follow your healthcare professional's instructions. ?? * Thuy Marcum RN: PERFORM Event Display: Patient Education Leaflets Authored Date: [id number] About Arrhythmias ?? [id number] About Arrhythmias Electrical impulses cause the normal heart to beat about 60 to 100 times a minute while at rest. These impulses come from a natural pacemaker called the sinus node. It's in the right upper heart chamber. Electrical impulses travel throughout the upper heart chambers (the atria) before reaching the bottom muscle chambers (the ventricles) through an electrical connection called the AV node. Each impulse causes the heart muscle to contract. This causes the blood to flow through the heart and out to the tissues and organs of your body. An arrhythmia is a change from the normal speed or pattern of these electrical impulses. This can cause the heart to beat too fast (tachycardia), too slow (bradycardia), or in an unsteady pattern (irregular rhythm). Symptoms of arrhythmias Different people experience arrhythmias differently. And different arrhythmias can cause different symptoms. Sometimes you may not have symptoms, but just notice a change in your pulse. Symptoms can include: ??? Fluttering feeling in the chest ??? Shortness of breath ??? Chest pain or pressure ??? Neck fullness ??? Lightheadedness or dizziness ??? Fainting or almost fainting ??? Palpitations. This is the sense that your heart is fluttering or beating fast or hard or irregularly. ??? Tiredness, fatigue, or weakness ??? Cardiac arrest, and , in serious arrhythmias ?? Causes of arrhythmias Arrhythmias are most often caused by heart disease, such as: ??? Coronary artery disease ( blocked arteries ) ??? Heart valve disease ??? Enlarged heart ??? High blood pressure ??? Heart failure Other causes of??arrhythmia include: ??? Certain medicines, such as asthma inhalers and decongestants ??? Some herbal supplements ??? Cardiac stimulant drugs and medicines. These include cocaine, amphetamine, and diet pills, and certaindecongestant cold medicines, caffeine, and nicotine. ??? Heavy use of alcohol ??? Anxiety and panicdisorder ??? Thyroid disease ??? Anemia ??? Diabetes ??? Sleep apnea ??? Obesity ??? Heart disease s pamela (congenital) ??? Heart diseases passed down through families ??? Electrolyte imbalance. Electrolytes are substances that help regulate normal heartbeat. High or low levels of certain electrolytes such as potassium or magnesium may affect the heartbeat and lead to arrhythmia. ??? Older age Arrhythmias can often be prevented. The cause and type of arrhythmia determines the best treatment.Sometimes your healthcare provider may want to keep track of your heart rate over a 24-hour period or longer. This can help find the cause of your arrhythmia and find the best treatment. This can be done with a Holter monitor. This is??a portable electrocardiogram (ECG) recording device attached toyour chest. Or you may get an event monitor. You can place this monitor over the skin in front of your heart. It records heart rhythms. You can carry this with you as you go about your daily activities during the monitoring period. You may also have an implantable loop recorder. This can monitor the heart rhythm for up to 3 years. This tiny device is placed underneath the skin over the heart. ?? Home care These guidelines will help you care for yourself at home: ??? Stay away from heart stimulants. These include cocaine, amphetamine, diet pills, certain decongestant cold medicines, caffeine, and nicotine. ??? Stop smoking if you smoke. Contact your healthcare provider or a local stop-smoking programfor help. ??? Tell your healthcare provider about any prescription, over the counter, or herbal medicines you take. These may be affecting your heart rhythm. ?? Follow-up care Follow up with your healthcare provider, or as advised. If a Holter monitor has been advised, contact the tailor apprentice??you have been referred to??as soon as you can??to sweet pickle maker the device. Other outpatient tests may also be arranged for you at that time. ?? Call 911 This is the fastest and safest way to get to the emergency department. The paramedics can also start treatment on the way to the hospital, if needed. Don't??wait until your symptoms are severe to call 911. Other reasons to call 911 besides chest pain include: ??? Chest pain radiating to the shoulder, arm, neck, or back ??? Shortness of breath ??? Feeling lightheaded, faint, or dizzy ??? Unexplained fainting ??? Rapid heartbeat ??? Slower than usual heart rate compared to your normal ??? Very irregular heartbeat ??? Chest pain (angina) with weakness, dizziness, heavy sweating, nausea, or vomiting ??? Extreme drowsiness, or confusion ??? Weakness of an arm or leg or one side of the face ??? Trouble with speech or vision ?? When to get medical advice Remember, things are not always like they are on TV. Sometimes it is not so obvious. You may only feel weak or just not right. If it is not clear or if you have any doubt, call for advice. ??? Seekhelp for chest pain, or if something feels different from usual, even if your symptoms are mild. ??? Don't drive yourself. Have someone else drive. If no one can drive you, call 911. ??? If your healthcare provider has given you medicines to take when you have symptoms, take them, but don't delay getting help while trying to find them. ?? Last Reviewed Date: 2021 ?? [employer]. All rights reserved. This information is not intended as a substitute for professional medical care. Always follow your healthcare professional's instructions. ?? * Thuy Marcum RN: PERFORM Event Display: Patient Education Leaflets Authored Date: [id number] Metoprolol Extended Release Oral Tablet ?? [id number] Metoprolol Extended Release Oral Tablet Brands: Toprol Uses This medicine is used for the following purposes: ??? angina ??? heart attack ??? heart failure ???high blood pressure ??? irregular heart beat ??? prevent migraine headaches ??? movement disorder ?? Instructions Swallow the medicine without crushing or chewing it. This medicine may be taken with or without food. This medicine will work best if you take it at about the same time every day. Store at room temperature away from heat, light, and moisture. Do not keep in the bathroom. It is important that you keep taking each dose of this medicine on time even if you are feeling well. If you forget to take a dose on time, take it as soon as you remember. If it is almost time for thenext dose, do not take the missed dose. Return to your normal schedule. Do not take 2 doses at one time. Drug interactions can change how medicines work or increase risk for side effects. Tell your healthcare providers about all medicines taken. Include prescription and cqaa-akm-lcjcdgd medicines, vitamins, and herbal medicines. Speak with your doctor or pharmacist before starting or stopping any medicine. Tell your doctor if symptoms do not get better or if they get worse. If you have diabetes, this medicine may hide some signs of low blood sugar, such as fast heartbeat.Check your blood sugar regularly and for other signs of low blood sugar. Symptoms of low blood sugar may include nausea, shaking, sweating, cold skin, fast heartbeat, hunger, and irritability. If you need to stop this medicine, your doctor may wish to gradually reduce the dosage before stopping. Keep all appointments for medical exams and tests while on this medicine. ?? Cautions Tell your doctor and pharmacist if you ever had an allergic reaction to a medicine. Some patients with weak hearts may have worsening of symptoms. If you notice difficulty breathing, weight gain, or swelling of your legs or ankles, let your doctor know right away. Do not use the medication any more than instructed. This medicine may cause dizziness or fainting, especially after exercising or in hot weather. Be very careful when standing or sitting up quickly. Your ability to stay alert or to react quickly may be impaired by this medicine. Do not drive or operate machinery until you know how this medicine will affect you. Please check with your doctor before drinking alcohol while on this medicine. This medicine passes into breast milk. Ask your doctor before . During , this medicine should be used only when clearly needed. Talk to your doctor about the risks and benefits. Do not share this medicine with anyone who has not been prescribed this medicine. ?? Side Effects The following is a list of some common side effects from this medicine. Please speak with your doctor about what you should do if you experience these or other side effects. ??? diarrhea ??? dizziness or drowsiness ??? lack of energy and tiredness ??? slow heartbeat ??? lightheadedness Call your doctor or get medical help right away if you notice any of these more serious side effects: ??? confusion ??? depression or feeling sad ??? swelling of the legs, feet, and hands ??? fainting ??? cold hands or feet ??? mood changes ??? pale or blue skin, lips or fingernails ??? shortness of breath ??? unusual or unexplained tiredness or weakness ??? sudden or unexplained weight gain A few people may have an allergic reaction to this medicine. Symptoms can include difficulty breathing, skin rash, itching, swelling, or severe dizziness. If you notice any of these symptoms, seek medical help quickly. ?? Extra Please speak with your doctor, nurse, or pharmacist if you have any questions about this medicine. ?? [email or web address] IMPORTANT NOTE: This document tells you briefly how to take your medicine, but it does not tell youall there is to know about it. Your doctor or pharmacist may give you other documents about your medicine. Please talk to them if you have any questions. Always follow their advice. There is a more complete description of this medicine available in [place]. Scan this code on your smartphone or tablet or use the web address below. You can also ask your pharmacist for a printout. If you have any questions, please ask your pharmacist. The display and use of this drug information is subject to Terms of Use. Copyright(c) 2022 [employer]. ?? The [employer]. All rights reserved. This information is not intended as a substitute for professional medical care. Always follow your healthcare professional's instructions. ?? Patient Care team information Care Team Personnel Name: Dian Love RN Position: S RN Member Role: Primary Care Nurse Name: Eric WESTFALL , Wilma Cornejo Position: Reference Physician Member Role: PCP Address: Address: [address] [place] [address]- Name: Chris Maynard NP Position: [facility] Outreach Member Role: Primary Care Nurse Address: Address: [address] [place], [place] [address] [address] [place] [address]- Name: Samantha Anderson RN Position: S RN Member Role: Primary Care Nurse Name: Mary Rivera RN Position: S RN Member Role: Primary Care Nurse Name: Tesha Kincaid RN Position: S RN Member Role: Primary Care Nurse Name: Jacqueline Hayden RN Position: S RN Member Role: Primary Care Nurse Care Team Related Persons Name: CORRIE ROBSION Address: [address] [place] [address] Name: JO ROBISON Name: JESSICA ROBISON Address: [address] [address]
--- OUTSIDE RECORDS SUMMARY | 2023-09-27 20:14 | XMS_ITS | Continuity of Care Document ---
Author Name Unknown Organization [facility] Address [address] [place] [id number]- Care Team Providers Care School Age Lead Teacher Name Role Phone Sindy WESTFALL, Omar Gutierrez Primary Care Physician [phone] [facility] [place] [id number] Date(s): 08/30/19 - 09/06/19 [facility] [address] [place] [address]- [facility] Attending Physician: Nicho Winkler MD Admitting Physician: [...] 08/20/19 16:10:00 EST, Route to Pharmacy Electronically, [id number], 158, cm, 08/20/19 10:16:00 EST, Height, 53.6, [...] 6 Refills, Maintenance, 08/21/19 9:13:00 EST, Tablet, [facility] #[id number], 158, cm, 08/20/19 10:16:00 EST, Height, 53.6, kg, 07/25/18 1:05:00 EST, Dry Weight Start Date: 08/21/19 Stop Date: 03/18/20 Status: Ordered PARoxetine 40 mg oral tablet 40 mg, 1, tablet, By Mouth, Daily, Please make appt with Dr. Callahan, # 90 tablet, Refills 1, Tot. Refills 1, Maintenance, 07/17/19 7:10:43 EST, Route to Pharmacy Electronically, [id number], [facility], 158, cm, 0... Start [...] oldest [Reference Range]: 1 Height 158 cm (08/30/19 1:56 PM) Weight 53.25 kg (08/30/19 1:56 PM) Body Mass Index [18.5-24.99] 21.33 (08/30/19 1:56 PM) Blood Pressure [90-138/55-84 mm Hg] 124/ 70mm Hg (08/30/19 1:56 PM) Blood pressure sites Arm, right (08/30/19 1:56 PM) Weight Obtained Via Patient/family state d (08/30/19 1:56 PM) Social History Social History Type Response Smoking Status Former smoker, quit more than 30 days ago entered on: 08/07/18 Sex
--- OUTSIDE RECORDS SUMMARY | 2023-09-27 20:14 | XMS_ITS | Continuity of Care Document ---
Author Name Unknown Organization [facility] [place] Address [address] [facility] [place] [address]- Care Team Providers Care Six Color Press Operator Name Role Phone Eric WESTFALL, Wilma Cornejo Primary Care Physician Encounter 11/22/22 - 11/29/22 [facility] [address], [address] [place], [place] [address] Attending Physician: Omar Callahan MD Admitting Physician: Omar Callahan MD Referring Physician: Omar Callahan MD Allergies, Adverse Reactions, Alerts No Known [...] 09/08/20 10:55:00 EST, Route to Pharmacy Electronically, [facility] #[id number], 158, cm, 09/08/20 10:17:00 EST, Height Start Date: 09/08/20 Status: Ordered atorvastatin 40 mg oral tablet 1 tablet = 40 mg, By Mouth, Daily, # 30 tablet, 11 Refills, Maintenance, 09/08/20 10:57:00 EST, Tablet, [facility] #06156, 158, cm, 09/08/20 10:17:00 EST, Height Start [...] 08/30/22 12:06:00 EST, Route to Pharmacy Electronically, [facility]/pharmacy #[id number], 158, cm, 06/11/22 9:39:00 EDT, Height [...] Exam Date Time Procedure Performing Provider Status 11/22/22 2:12 PM MM Digital Mammo Screening Prachi Grewal; Auth (Verified) Notes: (MM Digital Mammo Screening) Reason For Exam: Z12.31 ROUTINE SCREEING RESULT: MM Digital Mammo Screening PROCEDURE: MM Digital Mammo Screening INDICATION: Screening. No known palpable abnormalities. COMPARISON: 12/12/2018 TECHNIQUE: Full-field digital CC and MLO views of both breasts were obtained. In addition, 3D tomosynthesis images of both breasts were acquired. Computer-aided detection (CAD) was utilized in the interpretation of this study. DENSITY: The breast tissue contains scattered areas of fibroglandular density. FINDINGS: No suspicious masses, suspicious microcalcifications, or areas of architectural distortion are seen in either breast to suggest malignancy. Postsurgical findings left axillary region. Architectural distortion noted in the both breasts similar to previous exam. IMPRESSION: No mammographic evidence of malignancy. RECOMMENDATION: Annual mammographic screening. BI-RADS: BI-RADS 2-benign Lay letter mailed to patient WSN: [id number] Ordering Physician: Omar Callahan Dictated By: Michele Posadas MD Dictated Date/Time: 11/22/22 2:34 pm Reviewed By: Michele Posadas MD Signed By: Michele Posadas MD Signed Date/Time: 11/22/22 2:34 pm Transcribed By: YASMINE Cell Maker Date/Time: 11/22/22 2:33 pm Birads: Social History Social History Type Response Tobacco Use: patient states she is quitting. Sex [facility] Breast Screening * [facility] , CIS S: TRANSCRIBE Michele Posadas MD: VERIFY Event Display: Result: Authored Date: [id number] PROCEDURE: MM Digital Mammo Screening INDICATION: Screening. No known palpable abnormalities. COMPARISON: 12/12/2018 TECHNIQUE: Full-field digital CC and MLO views of both breasts were obtained. In addition, 3D tomosynthesis images of both breasts were acquired. Computer-aided detection (CAD) was utilized in the interpretation of this study. DENSITY: The breast tissue contains scattered areas of fibroglandular density. FINDINGS: No suspicious masses, suspicious microcalcifications, or areas of architectural distortion are seen in either breast to suggest malignancy. Postsurgical findings left axillary region. Architectural distortion noted in the both breasts similar to previous exam. IMPRESSION: No mammographic evidence of malignancy. RECOMMENDATION: Annual mammographic screening. BI-RADS: BI-RADS 2-benign Lay letter mailed to patient WSN: [id number] Ordering Physician: Omar Callahan Dictated By: Michele Posadas MD Dictated Date/Time: 11/22/22 2:34 pm Reviewed By: Michele Posadas MD Signed By: Michele Posadas MD Signed Date/Time: 11/22/22 2:34 pm Transcribed By: YASMINE Cell Maker Date/Time: 11/22/22 2:33 pm Birads: Patient Care team information Care Team Personnel Name: Dian Love RN Position: [facility] RN Member Role: Primary Care Nurse Name: Eric WESTFALL , Wilma Cornejo Position: Reference Physician Member Role: PCP Address: Address: [address] [place] [address]- Name: Chris Maynard NP Position: S Outreach Member Role: Primary Care Nurse Address: Address: [address] [place], [place] [address] [place] [address]- [place] Name: Samantha Anderson RN Position: [facility] RN Member Role: Primary Care Nurse Care Team Related Persons Name: CORRIE ROBISON Address: [address] [address] Name: JO ROBISON Name: JESSICA ROBISON Address: [address] [address]
--- OUTSIDE RECORDS SUMMARY | 2023-09-27 20:14 | XMS_ITS | Continuity of Care Document ---
Author Name Unknown Organization [facility] Address [address] [place] [address]- Care Team Providers Care Manager Machine Name Role Phone Sindy WESTFALL, Omar Gutierrez Primary Care Physician [place] [facility] [id number] Date(s): 10/08/19 - 01/23/20 [facility] [address] [place] [address]- [facility] Attending Physician: Nicho Winkler MD Admitting Physician: [...] 08/20/19 16:10:00 EST, Route to Pharmacy Electronically, [facility] #[id number], 158, cm, 08/20/19 10:16:00 EST, Height, 53.6, [...] 6 Refills, Maintenance, 08/21/19 9:13:00 EST, Tablet, [facility] #[id number], 158, cm, 08/20/19 10:16:00 EST, Height, 53.6, kg, 07/25/18 1:05:00 EST, Dry Weight Start Date: 08/21/19 Stop Date: 03/18/20 Status: Ordered PARoxetine 40 mg oral tablet 1, tablet, By Mouth, Daily, # 90 tablet, Refills 0, Tot. Refills 0, Maintenance, 12/19/19 17:44:00 EDT, Route to Pharmacy Electronically, [facility], 158, cm, 10/08/19 8:22:00 EST, Height, 53.6, kg, 07/25/18 1:05:00 EST, Dry Weight Start Date: 12/19/19 Status: Ordered Plavix 75 mg oral tablet 75 mg, 1, tablet, By Mouth, Daily, # 30 tablet, Refills 11, Tot. Refills 11, Maintenance, 09/28/19 8:00:00 EST, Route to Pharmacy Electronically, [facility] #[id number], 158, cm, 09/27/19 10:13:00 EST, Height, 53.6, [...]
--- OUTSIDE RECORDS SUMMARY | 2023-09-27 20:14 | XMS_ITS | Continuity of Care Document ---
Author Name Unknown Organization [facility] Address [address] [place] [address]- Care Team Providers Care Draw Hand Name Role Phone Sindy WESTFALL, Omar Gutierrez Primary Care Physician [phone] Encounter [facility] [place] Date(s): 08/28/19 - 09/04/[address] [address]- [facility] Attending Physician: Edgard PROJECT CONSULTANT, Alysia Allergies, Adverse Reactions, Alerts Substance Reaction Severity [...] 08/20/19 16:10:00 EST, Route to Pharmacy Electronically, [facility] #[id number], 158, cm, 08/20/19 10:16:00 EST, Height, 53.6, [...] 6 Refills, Maintenance, 08/21/19 9:13:00 EST, Tablet, [facility] #[id number], 158, cm, 08/20/19 10:16:00 EST, Height, 53.6, kg, 07/25/18 1:05:00 EST, Dry Weight Start Date: 08/21/19 Stop Date: 03/18/20 Status: Ordered PARoxetine 40 mg oral tablet 40 mg, 1, tablet, By Mouth, Daily, Please make appt with Dr. Callahan, # 90 tablet, Refills 1, Tot. Refills 1, Maintenance, 07/17/19 7:10:43 EST, Route to Pharmacy Electronically, [id number], [facility], 158, cm, 0... Start [...]
--- OUTSIDE RECORDS SUMMARY | 2023-09-27 20:14 | XMS_ITS | Continuity of Care Document ---
Author Name Unknown Organization [facility] Address [address] [place] [address]- Care Team Providers Care Career Services Representative Name Role Phone Omar Callahan MD Primary Care Physician [phone] Encounter [facility] [place] ACCT R [id number] Date(s): 08/20/19 - 08/27/19 [facility] [address] [place] [address]- [facility] Attending Physician: Nicho Winkler MD Admitting Physician: Nicho Winkler MD Referring Physician: Omar Callahan MD Allergies, [...] 15:38:16 EST, Inhaler, Route to Pharmacy Electronically, [id number], [facility] [id number] Start Date: 07/28/18 Status: Ordered amLODIPine 10 mg oral tablet 10 mg, 1, tablet, By Mouth, Daily, # 30 tablet, Refills 0, Tot. Refills 0, Maintenance, 08/20/19 16:10:00 EST, Route to Pharmacy Electronically, [facility] #[id number], 158, cm, 08/20/19 10:16:00 EST, Height, 53.6, [...] 6 Refills, Maintenance, 08/21/19 9:13:00 EST, Tablet, [facility] #[id number], 158, cm, 08/20/19 10:16:00 EST, Height, 53.6, kg, 07/25/18 1:05:00 EST, Dry Weight Start Date: 08/21/19 Stop Date: 03/18/20 Status: Ordered PARoxetine 40 mg oral tablet 40 mg, 1, tablet, By Mouth, Daily, Please make appt with Dr. Callahan, # 90 tablet, Refills 1, Tot. Refills 1, Maintenance, 07/17/19 7:10:43 EST, Route to Pharmacy Electronically, [id number], [facility], 158, cm, 0... Start Date: 07/17/19 Status: Ordered Symbicort 160mcg/4.5mcg Inhaler 2, puffs, Inhalation, 2 times a day, rinse mouth and throat after use, # 1 each, Refills 0, Tot. Refills 0, Maintenance, 07/28/18 15:38:07 EST, Inhaler, Route to Pharmacy Electronically, [id number], [facility] [address] Start Date: 07/28/18 Status: Ordered Vitamin D3 [...] oldest [Reference Range]: 1 Height 158 cm (08/20/19 10:16 AM) Weight 58 kg (08/20/19 10:16 AM) Body Mass Index [18.5-24.99] 23.23 (08/20/19 10:16 AM) Blood Pressure [90-138/55-84 mm Hg] 160/ 70mm Hg *H* (08/20/19 10:16 AM) Blood pressure sites Arm, right (08/20/19 10:16 AM) Weight Obtained Via Patient/family state d (08/20/19 10:16 AM) Social History Social History Type Response Smoking Status Former smoker, quit more than 30 days ago entered on: 08/07/18 Sex
--- OUTSIDE RECORDS SUMMARY | 2023-09-27 20:14 | XMS_ITS | Continuity of Care Document ---
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 Role Phone Eric WESTFALL, Wilma Cornejo Primary Care Physician [place] [facility] [place] - 02/08/[address] [id number] Encounter Diagnosis Tibia fracture(Final) - 02/02/23 Ankle fracture, right(Final) - 02/02/23 Open fracture ankle, bimalleolar(Final) - 02/02/23 Dislocation of ankle, right, open(Final) - 02/02/23 Discharge Disposition: A-Transfer SNF Attending Physician: Favio WESTFALL, Vale Montiel Admitting Physician: Eugenio Miles MD Referring Physician: Not on Staff, Referring MD Allergies, Adverse Reactions, Alerts Substance Reaction Severity Status cefTRIAXone Active Immunizations Given and Recorded Vaccine Date Status Refusal Reason tetanus/diphtheria/pertussis, acel(Tdap) 02/02/23 Given tetanus/diphtheria/pertussis, acel(Tdap) 1 12/12/14 Given tetanus/diphtheria/pertussis, acel(Tdap) 12/12/14 Given pneumococcal 23-valent vaccine 07/28/18 Given influenza virus vaccine, inactivated 07/28/18 Give n influenza virus vaccine, inactivated 2 08/08/13 Gi tamia 1Result Comment: already charted it 2Result Comment: [11/12/2013] Patient declines flu shot Medications apixaban = 5 mg, By Mouth, 2 times a day, 0 Refills, Maintenance, 02/08/23 13:00:00 EDT, Tablet, Partial fill upon patient request if the prescription is for a schedule II opioid drug. Start Date: 02/08/23 Status: Ordered atorvastatin 40 mg oral tablet 1 tablet = 40 mg, By Mouth, Daily, # 30 tablet, 11 Refills, Maintenance, 09/08/20 10:57:00 EST, Tablet, [id number], 158, cm, 09/08/20 10:17:00 EST, Height Start Date: 09/08/20 Status: Ordered metoprolol 25 mg oral tablet 25 mg, Tablet, By Mouth, 02/08/23 9:00:00 EDT Start Date: 02/08/23 Stop Date: 02/08/23 Status: Completed metoprolol 25 mg oral tablet, extended release 25 mg, XL Tablet, By Mouth, 02/08/23 12:28:00 EDT Start Date: 02/08/23 Stop Date: 02/08/23 Status: Completed metoprolol 25 mg oral tablet, extended release 25 mg, 1, tablet, By Mouth, Daily, # 30 tablet, Refills 0, Maintenance, 02/02/23 22:29:00 EDT, Partial fill upon patient request if the prescription is for a schedule II opioid drug. Start Date: 02/02/23 Status: Ordered oxyCODONE 5 mg oral tablet 5 mg, 1, tablet, By Mouth, Every 6 hours, PRN, for 5 days, # 12 tablet, Refills 0, Tot. Refills 0, Acute 02/13/23 12:58:00 EDT, as needed for pain, 02/08/23 12:58:00 EDT, Do Not Route, Partial fill upon patient request if the prescription is for a maisha... Start Date: 02/08/23 Stop Date: 02/13/23 Status: Ordered Paxil 20 mg oral tablet 20 mg, 1, tablet, By Mouth, Daily, # 30 tablet, Refills 0, Maintenance, 02/02/23 22:28:00 EDT, Partial fill upon patient request if the prescription is for a schedule II opioid drug. Start Date: 02/02/23 Status: Ordered Percocet-5 Tablet 1 tablet, Tablet, By Mouth, Every 3 hours, PRN for Pain , Mild, or Pain, Moderate, Routine, 02/02/23 19:21:00 EDT Start Date: 02/02/23 Stop Date: 02/09/23 Status: Discontinued Plavix 75 mg oral tablet 75 mg, 1, tablet, By Mouth, Daily, # 90 tablet, Refills 3, Tot. Refills 3, Maintenance, 08/30/22 12:06:00 EST, Route to Pharmacy Electronically, [facility] #[id number], 158, cm, 06/11/22 9:39:00 EDT, Height [...] Exam Date Time Procedure Performing Provider Status 02/02/23 6:49 PM C-Arm > 1 Hour Micaela Beltre h (Verified) Notes: (C-Arm > 1 Hour) Reason For Exam: ORIF RIGHT ANKLE RESULT: C-Arm > 1 Hour Ankle 2 Views Right, C-Arm > 1 Hour Reason: ORIF RIGHT ANKLE COMPARISON: Ankle x-ray performed earlier today. FINDINGS: Fluoroscopy support was provided. There was no radiologist in attendance. 3 fluoroscopic images were submitted. Interval placement of side plate across the distal fibula with transfixing screws and 2 syndesmotic screws. There are also 2 screws across the medial malleolus. Near anatomical alignment of the fracture fragments. Technologist time: 1 hour and 11 min. Fluoroscopy time: 48.9 sec. Cumulative reference air kerma: 1.8 mGy. IMPRESSION: Fluoroscopy support was provided. Please refer to the surgical/procedural notes for details. WSN: [id number] Ordering Physician: Theron Rousseau Dictated By: Faye Aguila MD Dictated Date/Time: 02/03/23 0:00 am Reviewed By: Faye Aguila MD Signed By: Faye Aguila MD Signed Date/Time: 02/03/23 0:00 am Transcribed By: YASMINE Transcribed Date/Time: 02/02/23 11:58 pm * Exam Date Time Procedure Performing Provider Status 02/02/23 6:49 PM Ankle 2 Views Right Tessa Beltre ; Shane (Verified) Notes: (Ankle 2 Views Right) Reason For Exam: ORIF RIGHT ANKLE RESULT: Ankle 2 Views Right Ankle 2 Views Right, C-Arm > 1 Hour Reason: ORIF RIGHT ANKLE COMPARISON: Ankle x-ray performed earlier today. FINDINGS: Fluoroscopy support was provided. There was no radiologist in attendance. 3 fluoroscopic images were submitted. Interval placement of side plate across the distal fibula with transfixing screws and 2 syndesmotic screws. There are also 2 screws across the medial malleolus. Near anatomical alignment of the fracture fragments. Technologist time: 1 hour and 11 min. Fluoroscopy time: 48.9 sec. Cumulative reference air kerma: 1.8 mGy. IMPRESSION: Fluoroscopy support was provided. Please refer to the surgical/procedural notes for details. WSN: [id number] Ordering Physician: Theron Rousseau Dictated By: Faye Aguila MD Dictated Date/Time: 02/03/23 0:00 am Reviewed By: Faye Aguila MD Signed By: Faye Aguila MD Signed Date/Time: 02/03/23 0:00 am Transcribed By: YASMINE Transcribed Date/Time: 02/02/23 11:58 pm * Exam Date Time Procedure Performing Provider Status 02/02/23 12:00 PM Ankle Min 3 Views Right Madelaine Pablo (Verified) Notes: (Ankle Min 3 Views Right) Reason For Exam: Post-Reduction RESULT: Ankle Min 3 Views Right Examination: Right ankle performed on 02/02/2023. History: Hx of Present Illness: Hit R foot on a dresser last night. + open fracture.; Reason: Post-Reduction; Clinical Question(s): Position Fixation Findings: Frontal, oblique, and lateral views of the right ankle are compared to a tibia and fibula performedon the same date. Since the prior study, a fiberglass cast has been placed, obscuring underlying osseous and soft tissue detail. There is improved anatomic alignment of the previously seen trimalleolar fracture. However, there remains displacement and overlap of the fibular fracture. IMPRESSION: Post reduction radiographs as described. WSN: [id number] Ordering Physician: Abhishek Urena Dictated By: Ирина Richmond MD Dictated Date/Time: 02/02/23 12:16 p Reviewed By: Ирина Richmond MD Signed By: Ирина Richmond MD Signed Date/Time: 02/02/23 12:16 pm Transcribed By: YASMINE Transcribed Date/Time: 02/02/23 12:15 pm * Exam Date Time Procedure Performing Provider Status 02/02/23 8:20 AM Tibia/Fibula 2 Views Right Auth (Verified) Notes: (Tibia/Fibula 2 Views Right) Reason For Exam: Deformity RESULT: Tibia/Fibula 2 Views Right Ankle Min 3 Views Right, Tibia/Fibula 2 Views Right HX OF PRESENT ILLNESS: Hit R foot on a dresser last night. + open fracture.; Reason: Deformity; Clinical Question(s): Fracture COMPARISON: None. FINDINGS: There is a right ankle fracture dislocation. The talus is dislocated laterally relative to the distal tibia. There is a severely laterally displaced fracture of the distal fibular diaphysis. There fox severely laterally displaced fracture of the medial malleolus. There is overlying soft tissue swelling and irregularity compatible with soft tissue injury. The proximal tibia and fibula are intact.Normal alignment at the knee. No radiopaque foreign body. IMPRESSION: Right ankle fracture dislocation as above. WSN: [id number] Ordering Physician: Ritu Prater Dictated By: Lorne Solis MD Dictated Date/Time: 02/02/23 9:40 am Reviewed By: Lorne Solis MD Signed By: Lorne Solis MD Signed Date/Time: 02/02/23 9:40 am Transcribed By: YASMINE Transcribed Date/Time: 02/02/23 9:38 am * Exam Date Time Procedure Performing Provider Status 02/02/23 8:20 AM Ankle Min 3 Views Right [facility] (Verified) Notes: (Ankle Min 3 Views Right) Reason For Exam: Deformity RESULT: Ankle Min 3 Views Right Ankle Min 3 Views Right, Tibia/Fibula 2 Views Right HX OF PRESENT ILLNESS: Hit R foot on a dresser last night. + open fracture.; Reason: Deformity; Clinical Question(s): Fracture COMPARISON: None. FINDINGS: There is a right ankle fracture dislocation. The talus is dislocated laterally relative to the distal tibia. There is a severely laterally displaced fracture of the distal fibular diaphysis. There fox severely laterally displaced fracture of the medial malleolus. There is overlying soft tissue swelling and irregularity compatible with soft tissue injury. The proximal tibia and fibula are intact.Normal alignment at the knee. No radiopaque foreign body. IMPRESSION: Right ankle fracture dislocation as above. WSN: [id number] Ordering Physician: Ritu Prater Dictated By: Lorne Solis MD Dictated Date/Time: 02/02/23 9:40 am Reviewed By: Lorne Solis MD Signed By: Lorne Solis MD Signed Date/Time: 02/02/23 9:40 am Transcribed By: YASMINE Transcribed Date/Time: 02/02/23 9:38 am Vital Signs Most recent to oldest [Reference Range]: 1 2 3 Height 160 cm (02/07/23 5:44 AM) 160 cm (02/07/23 3:15 AM) 160 cm (02/06/23 11:25 PM) Weight 59 kg (02/07/23 5:44 AM) 59 kg (02/02/23 9:09 PM) Oxygen Saturation [94-100 %] 94 % (02/08/23 11:19 AM) 92 % *L* (02/08/23 7:27 AM) 90 % *L* (02/08/23 3:06 AM) Pulse Rate [55-90 bpm] 64 bpm (02/08/23 12:42 PM) 64 bpm (02/08/23 11:19 AM) 74 bpm (02/08/23 8:06 AM) Body Mass Index [18.5-24.99 kg/m2] 23.05 kg/m2 (02/02/23 9:09 PM) Blood Pressure [90-138/55-84 mm Hg] 107/75mm Hg (02/08/23 12:42 PM) 107/75mm Hg (02/08/23 11:19 AM) 118/73mm Hg (02/08/23 8:06 AM) Respiratory Rate [16-30 br/min] 18 br/min (02/08/23 2:17 PM) 16 br/min (02/08/23 11:19 AM) 16 br/min (02/08/23 9:36 AM) Temperature [96.8-100.4 DegF] 98 DegF (02/08/23 11:19 AM) 98.1 DegF (02/08/23 7:27 AM) 98.4 DegF (02/08/23 3:06 AM) Liters per Minute 1 L/min (02/03/23 3:06 AM) 1 L/min (02/03/23 2:09 AM) 1 L/min (02/02/23 11:35 PM) Mode of Delivery (Oxygen) Room air (02/08/23 11:19 AM) Room air (02/08/23 7:27 AM) Room air (02/08/23 3:06 AM) Blood pressure sites Arm, left (02/08/23 11:19 AM) Arm, right (02/08/23 7:27 AM) Arm, left (02/08/23 3:06 AM) Temperature Route Oral (02/08/23 11:19 AM) Oral (02/08/23 7:27 AM) Oral (02/08/23 3:06 AM) Dry Weight 59 kg (02/02/23 9:09 PM) 59.09 kg (02/02/23 4:19 PM) 58 kg (02/02/23 1:41 PM) Weight Obtained Via Patient/family stated (02/02/23 9:09 PM) Dry Weight Obtained Via Patient/family stated (02/02/23 9:09 PM) Patient/family stated (02/02/23 4:19 PM) Patient/family stated (02/02/23 11:00 AM) Social History Social History Type Response Tobacco Use: patient states she is quitting. Sex Admission evaluation note * Ginger WESTFALL, Eugenio: PERFORM Event Display: Admission Note Authored Date: Patient: ??MELITA SANZ ? Age:??67 Years?Sex:??Female?:??[id number]?? Chief Complaint/Reason for Consultation Pt coming from home with c/o R ankle injury. Pt sts that she accidentally kicked a dresser last night approx 7 hours ago. NOw with open R ankle fx. Bleeding noted to EMS dressing. .Pt is on plavix. 20g to LAC History of Present Illness Mleita is a 67-year-old female who?? has a PMH of HTN, hypercholesterolemia , COPD and stent placed on her iliac artery 2 years ago [place] [facility] [place]??open right ankle injury. ??She reports thatalyssa was walking near her??nightstand when she banged her ankle into it. ??She denies fall, loss of c onsciousness, head strike.?? This was at approximately 11??PM/12??AM.?? Reports that she laid down in bed when she felt??blood around her ankle. ??She tried to ambulate and crawl??then??realized thatalyssa was??unable to do so.?? She did not call 911 immediately after her injury as her front door waslocked.?Reports that she tried to stop the bleeding by applying pressure however was unable to do so.?States that her bedroom must ??look like a murder scene .??She??waited to call her landlord early this AM, who came and unlocked her door. ??After this she called??911 and [place] [facility] [place] Reports that last evening she socially??had??1 light beer and??marijuana. She is on Plavix daily for PVD, last dose on 02/01. She has not had anything to eat or drink since the evening of 02/01.?? Vancomycin and Tetanus ordered by ED. Radiographs obtained in the ED demonstrated open right bimalleolar??ankle fracture and dislocation. Orthopedic surgery service was consulted?? who did put the splint for immobilization . Recommedated surgery for Type 3 open right bimalleolar ankle fracture/dislocation??and admit under medical services. ? I saw her in the ED,??she was alert awake oriented to time place and person, on 2 L nasal cannula which I think??patient might not need, triter down.??Not on distress. Euvolemic. ??Lab noted to have hyponatremia??and some anemia.?? X- ray??suffered a right bimalleolar ankle fracture. Started on gentle hydration??and vancomycin in ED. ?? Will admit her for possible ortho surgery ? Review of Systems Constitutional:??No weight loss, fever, chills, weakness or fatigue. Allergy/Immune: Denies any??Eczema or hives Eyes:??No visual loss, blurred vision, double vision or yellow sclera ENT:??No hearing loss, sneezing, congestion, runny nose or sore throat. Respiratory:??No shortness of breath, cough or sputum production. Cardiovascular:??No chest pain, chest pressure or chest discomfort. No palpitations or pedal edema. Gastrointestinal:??No anorexia, nausea, vomiting or diarrhea. No abdominal pain or blood in stool. Genitourinary:??No burning micturition. No urinary frequency or incontinence. Neurologic:??No headache, dizziness, syncope, unilateral weakness, ataxia, numbness or tingling in the extremities. No change in bowel or bladder control. Musculoskeletal:??No pain on her # legs Hematologic/Lymphatics:??No bleeding or bruising. No painful lymph nodes. Skin:??No rash or itching. Endocrine:??No reports of sweating. No cold or heat intolerance. No polyuria or polydipsia. Psychiatric:??No depression or anxiety. Objective Measurements?? Dry Weight: 58 kg (02/02/23) ?? Vital Signs?? Temperature: 98 DegF (02/02/23 07:44:00) Temperature Route: Oral (02/02/23 07:44:00) Pulse Rate: 68 bpm (02/02/23 10:16:00) Respiratory Rate: 24 br/min (02/02/23 10:16:00) Systolic Blood Pressure:??147 mm Hg??High (02/02/23 10:16:00) Diastolic Blood Pressure: 84 mm Hg (02/02/23 10:16:00) Mean Arterial Pressure: 105 mm Hg (02/02/23 10:16:00) Pulse Pressure: 63 mm Hg (02/02/23 10:16:00) Oxygen Saturation: 97 % (02/02/23 10:16:00) Mode of Delivery (Oxygen): Room air (02/02/23 10:01:00) End Tidal CO2: 33 mm Hg (02/02/23 10:16:00) ? Perfusion Assessment Cardiac Rhythm: Normal sinus rhythm (02/02/23 10:16:00) Cardiovascular: WNL (02/02/23 10:16:00) Cardiovascular Assessment Status: Unchanged from recorder's assessment (02/02/23 10:16:00) Cardiovascular Symptoms: None (02/02/23 10:16:00) Heart Rhythm: Regular (02/02/23 10:16:00) ? Pain Scores?? No qualifying data available. ? Intake/Output? 02/02 11:58 02/02 07:00 02/01 07:00 01/31 07:00 01/30 07:00 ?? 02/02 13:23 02/02 13:23 02/02 06:59 02/01 06:59 01/31 06:59 Intake ?200 ?200 ?0 ?0 ?0 Output ?0 ?0 ?0 ?0 ?0 Net Total ?200 ?200 ?0 ?0 ?0 ? Precautions No Precautions documented.? Marilia Coma Scale [place] Coma Score: 15 (02/02/23 10:16:00) Motor Response-Adult: Obeys commands (02/02/23 10:16:00) Response Eye Opening: Spontaneously (02/02/23 10:16:00) Verbal Response-Adult: Oriented and converses (02/02/23 10:16:00) ? Mobility & Ambulation Level Mobility & Ambulation Level?? No qualifying data available. ? Physical Exam Constitutional: Alert, in no distress. Mental Status: Oriented to person, place and time. Head: Normocephalic. Eyes: Pupils are equal, round and reactive to light. Extraocular muscles intact. Ear, Nose and Throat: Oropharynx clear, mucous membranes moist. Ears and nose without masses, lesions or deformities. Trachea midline. Neck: Supple, Full range of motion. Respiratory:?? mild wheezing +ve Cardiovascular: S1 S2 regular. No murmurs, rubs or gallops. Gastrointestinal: Abdomen soft, non-tender, non-distended. Normal bowel sounds. No pulsatile mass. No hepatosplenomegaly. Genitourinary: No costovertebral angle tenderness. Neurologic: Cranial nerves II-XII grossly intact. No focal neurological deficits. Flexor plantar response. Moves all extremities spontaneously. Sensation intact bilaterally. Skin: No rashes or lesions. No petechiae or purpura.?? Musculoskeletal: Rt ankle has slint for immobilization Heme/Lymphatics/Immun: Palpation of neck reveals no swelling or tenderness of neck nodes. Palpationof groin reveals no swelling or tenderness of groin nodes. Psychiatric: Normal mood and affect Assessment/Plan Diagnoses Ankle fracture, right ??(S82.891A) Dislocation of ankle, right, open ??(S93.04XA) Open fracture ankle, bimalleolar ??(S82.843B) Tibia fracture ??(S82.209A) ?? Ankle fracture, right (S82.891A):?? Type 3 open right bimalleolar ankle fracture/dislocation Patient is admitted to the medical service.?? Orthopedics will follow. Patient's ankle was washed out at bedside and closed reduction??with splinting performed.??She was given a dose of IV antibiotics and her tetanus was updated. Patient's current NPO status to be maintained possible surgery today with Dr. Rousseau.?? Recommend strict nonweightbearing status of RLE, elevation, icing, pain control and DVT prophylaxis. Patient is added to the orthopedic trauma surgery OR add on list with plan for surgical fixation once medically optimized and when OR schedule allows. ?? Chronic condition HTN : amlodipine??10 mg?? resumed , hold lisinopril for now Dyslipidemia : atorvastatin resumed Peripheral vascular disease : Stent iliac artery??2 years back , on clopidogrel ( hold for now) COPD : stable , doesnt take medications ?? VTE Prophylaxis:??Heparin ?? Code Status:??Full confirmed with patient at beside ?? Ongoing Medical Necessity:??Surgery ortho RCSI : ??1 point class 2 risk. 6.0 % 30-day risk of , [place], or cardiac arrest, Given No chest pain , no SOB and euvolemia , canproceed with surgery with minimal risk as calculated using RCSI. ?? From Axel 2017, based on pooled data from 5 high quality external validations (4 prospective). These numbers are higher than those often quoted from the now- outdated original study (Jose D 1999). SeeEvidence for details. ?? Discharge Planning:??? home VS rehab ?Order Date/Time ??Order Action ??Order Name ??Order Detail ??02/02/2023 12:45 ??Order ??Atorvastatin 40 mg Tablet ??40 mg, tablet, By Mouth, Daily ??02/02/2023 12:45 ??Order ??Amlodipine 10 mg Tablet ??10 mg, tablet, By Mouth, Daily ? Important Psychosocial and Contextual Factors?? Important Psychosocial and Contextual factors -- No patient assets and stressors documented during this encounter ?? Histories Allergies Allergies ?(Active and Proposed Allergies Only) cefTRIAXone? (Severity: Unknown severity, Onset: Unknown) ? Past Medical History/Problem List Active Problems??(11) Acute hypoxemic respiratory failure Anxiety Eczema Hypercholesterolemia Hypertension Malignant Neoplasm of Breast (Female), Unspecified Peripheral vascular disease RSV bronchitis Tobacco abuse Urinary Frequency Vaginal dysplasia ? Past Surgical History Colonoscopy, flexible; with removal of tumor(s), polyp(s), or other lesion(s) by snare technique: 10/09/18 Endoscopy and biopsy of upper gastrointestinal tract: 10/09/18 Vulvectomy, radical, partial; lumpectomy B breast, with node removal ? Social History Alcohol Details:??Use: Current. ??Frequency: 1-2 times per year. Employment/School Details:??Status: Employed. ??Other: [employer]. Exercise Details:??Self assessment: Good condition. ??Regular exercise: No. Home/Environment Details:??Living situation: Home/Independent. ??Lives with: nephew. Nutrition/Health Details:??Diet: Regular. Substance Abuse Details:??Use: Never. Tobacco Details:??Use: patient states she is quitting. ? Psychosocial History ? Family History Mother: Hypertension Brother: Hypertension ? [facility]: No ? History No previous pregnancies history have been recorded ?? Medications Home Medications Amlodipine (amLODIPine 10 mg oral tablet)?10?Milligram?1?tablet?By Mouth?Daily Atorvastatin (atorvastatin 40 mg oral tablet)?1?tab(s)?40?Milligram?By Mouth?Daily Clopidogrel (Plavix 75 mg oral tablet)?75?Milligram?1?tablet?By Mouth?Daily Lisinopril?By Mouth?Daily ? Inpatient Medications Medications (4) Active SCHEDULED: (2) Amlodipine 10 mg Tablet (amLODIPine 10 mg oral tablet) ??10 mg, By Mouth, Daily Atorvastatin 40 mg Tablet (atorvastatin 40 mg oral tablet) ??40 mg, By Mouth, Daily CONTINUOUS: (0) PRN: (2) MorPHINE 4 mg Inj Syringe (MorPHINE Inj) ??4 mg, IV Push Slowly, Every 5 minutes Ondansetron 2mg/mL Inj (2mL Vial) (Ondansetron Inj) ??4 mg, IV Push Slowly, Every 30 minutes ? 72 Hour Antibiotic History Stopped Antibiotics Stop Date/Time Last Administered First Administered Vancomycin??1 Gm, 200 mL, 200 mL/hr, IVPB, Once 02/02/2023 12:06 02/02/2023 12:00 02/02/2023 12:00 ? Vaccinations and Immunoprophylaxis influenza virus vaccine, inactivated: 0.5 mL (07/28/18 08:21:00) influenza virus vaccine, inactivated: 0.5 mL (08/08/13 14:36:00) pneumococcal 23-valent vaccine: 0.5 mL (07/28/18 08:32:00) tetanus/diphtheria/pertussis, acel(Tdap): 0.5 mL (02/02/23 12:02:00) tetanus/diphtheria/pertussis, acel(Tdap): 0.5 mL (12/12/14 15:04:00) ? Results Recent Labs BLOOD BANK Blood Type AB Positive ()?? 02/02/2023 08:23 Antibody Screen Negative ()?? 02/02/2023 08:23 ?? BLOOD COUNT & DIFF WBC 7.6 k/mm3 ()?? 02/02/2023 10:43 RBC 3.71 m/mm3 (Low)?? 02/02/2023 10:43 Hgb 10.7 Gm/dL (Low)?? 02/02/2023 10:43 Hct 32.7 % (Low)?? 02/02/2023 10:43 MCV 88.1 femtoliters ()?? 02/02/2023 10:43 MCH 28.8 pg ()?? 02/02/2023 10:43 MCHC 32.7 g/dL (Low)?? 02/02/2023 10:43 Platelet Count 260 k/mm3 ()?? 02/02/2023 10:43 RDW-SD 45.5 femtoliters ()?? 02/02/2023 10:43 MPV 8.8 femtoliters (Low)?? 02/02/2023 10:43 Nucleated RBC (Automated) 0.0 #/100 WBC'S ()?? 02/02/2023 10:43 Abs. NRBC 0.0 k/mm3 ()?? 02/02/2023 10:43 Abs. Neut 6.0 k/mm3 ()?? 02/02/2023 10:43 Abs. Lymph 1.0 k/mm3 ()?? 02/02/2023 10:43 Abs. Dixon 0.5 k/mm3 ()?? 02/02/2023 10:43 Abs. Eo 0.0 k/mm3 ()?? 02/02/2023 10:43 Abs. Baso 0.0 k/mm3 ()?? 02/02/2023 10:43 Neut % 78.8 % (High)?? 02/02/2023 10:43 Lymph % 13.2 % (Low)?? 02/02/2023 10:43 Dixon % 7.0 % ()?? 02/02/2023 10:43 Eos % 0.1 % ()?? 02/02/2023 10:43 Baso % 0.4 % ()?? 02/02/2023 10:43 Imm Gran 0.5 % ()?? 02/02/2023 10:43 Abs. Imm Gran 0.0 k/mm3 ()?? 02/02/2023 10:43 ?? CHEM GENERAL Sodium 130 mmol/L (Low)?? 02/02/2023 10:43 Potassium 4.6 mmol/L ()?? 02/02/2023 10:43 Chloride 100 mmol/L ()?? 02/02/2023 10:43 Bicarbonate Level 17 mmol/L (Low)?? 02/02/2023 10:43 Anion Gap 13 ()?? 02/02/2023 10:43 Glucose Level 108 mg/dL (High)?? 02/02/2023 10:43 BUN 14 mg/dL ()?? 02/02/2023 10:43 Creatinine-Blood 1.0 mg/dL ()?? 02/02/2023 10:43 Estimated GFR Creatinine 63 ML/MIN/1.73 M2 ()?? 02/02/2023 10:43 Calcium 8.3 mg/dL (Low)?? 02/02/2023 10:43 ?? HEME OTHER Hold Blue Top SPECIMEN DISCARDED AFTER 4 HOURS. ()?? 02/02/2023 10:43 ?? VIROLOGY COVID-19 by RT-PCR NEGATIVE ()?? 02/02/2023 11:45 ? Abnormal Labs ?? BLOOD BANK ??Antibody Screen ??Negative () ??02/02/2023 08:23 ??Blood Type ??AB Positive () ??02/02/2023 08:23 ? BLOOD COUNT & DIFF ??Abs. Imm Gran ??0.0 k/mm3 () ??02/02/2023 10:43 ??Abs. NRBC ??0.0 k/mm3 () ??02/02/2023 10:43 ??Hct ??32.7 % (Low) ??02/02/2023 10:43 ??Hgb ??10.7 Gm/dL (Low) ??02/02/2023 10:43 ??Imm Gran ??0.5 % () ??02/02/2023 10:43 ??Lymph % ??13.2 % (Low) ??02/02/2023 10:43 ??MCHC ??32.7 g/dL (Low) ??02/02/2023 10:43 ??MPV ??8.8 femtoliters (Low) ??02/02/2023 10:43 ??Neut % ??78.8 % (High) ??02/02/2023 10:43 ??Nucleated RBC (Automated) ??0.0 #/100 WBC'S () ??02/02/2023 10:43 ??RBC ??3.71 m/mm3 (Low) ??02/02/2023 10:43 ??RDW-SD ??45.5 femtoliters () ??02/02/2023 10:43 ? CHEM GENERAL ??Bicarbonate Level ??17 mmol/L (Low) ??02/02/2023 10:43 ??Calcium ??8.3 mg/dL (Low) ??02/02/2023 10:43 ??Estimated GFR Creatinine ??63 ML/MIN/1.73 M2 () ??02/02/2023 10:43 ??Glucose Level ??108 mg/dL (High) ??02/02/2023 10:43 ??Sodium ??130 mmol/L (Low) ??02/02/2023 10:43 ? HEME OTHER ??Hold Blue Top ??SPECIMEN DISCARDED AFTER 4 HOURS. () ??02/02/2023 10:43 ? VIROLOGY ??COVID-19 by RT-PCR ??NEGATIVE () ??02/02/2023 11:45 ? Note: Critical results are displayed in red. ? Blood Glucose Trend Glucose Level:??108 mg/dL??High (02/02/23 10:43:00) ? CBC, CBC w/Diff?? CBC?? Differential?? WBC: 7.6 k/mm3 (10:43) Abs. Neut: 6 k/mm3 (10:43) RBC:??3.71 m/mm3??Low (10:43) Abs. Lymph: 1 k/mm3 (10:43) Hct:??32.7 %??Low (10:43) Abs. Dixon: 0.5 k/mm3 (10:43) RDW-SD: 45.5 femtoliters (10:43) Abs. Eo: 0 k/mm3 (10:43) Nucleated RBC (Automated): 0 #/100 WBC'S (10:43) Abs. Baso: 0 k/mm3 (10:43) Abs. NRBC: 0 k/mm3 (10:43) Neut %:??78.8 %??High (10:43) ?? Lymph %:??13.2 %??Low (10:43) ?? Dixon %: 7 % (10:43) ?? Eos %: 0.1 % (10:43) ?? Baso %: 0.4 % (10:43) ?? Imm Gran: 0.5 % (10:43) ?? Abs. Imm Gran: 0 k/mm3 (10:43) ? Coagulation Profile?? No qualifying data available. ?? LFT?? No qualifying data available. ?? Urinalysis?? No qualifying data available. ?? Microbiology ?? COVID-19 (Novel Coronavirus), Rapid PCR?? Completed?? Source: Nasal Body Site: Nose Collected Dt/Tm: 02/02/2023 11:43 Last Updated Dt/Tm: 02/02/2023 13:09 ? EKG study * Event Display: EKG Authored Date: * Event Display: ECG 12-Lead Authored Date: Please click on pdf link to open report * Event Display: ECG 12-Lead Authored Date: Ventricular Rate: 60 BPM Atrial Rate: 60 BPM P-R Interval: 162 ms QRS Duration: 86 ms Q-T Interval: 440 ms QTC Calculation(Bazett): 440 ms P Harrod: 80 degrees R Harrod: 65 degrees T Harrod: 63 degrees Sinus rhythm with Premature atrial complexes Possible Left atrial enlargement Incomplete right bundle branch block When compared with ECG of 05-FEB-2023 12:40, Sinus rhythm has replaced Atrial fibrillation Vent. rate has decreased BY [address] no longer depressed in Inferior leads ST no longer depressed in Anterolateral leads T wave inversion no longer evident in Inferior leads Confirmed by THOR ROLLINS MD ([id number]) on 02/07/2023 8:54:26 PM [place]: THOR ROLLINS MD * Event Display: ECG 12-Lead Authored Date: Please click on pdf link to open report * Event Display: ECG 12-Lead Authored Date: Ventricular Rate: 162 BPM Atrial Rate: 144 BPM QRS Duration: 82 ms Q-T Interval: 282 ms QTC Calculation(Bazett): 462 ms R Harrod: 62 degrees T Harrod: 252 degrees Atrial fibrillation with rapid ventricular response Marked ST abnormality, possible inferolateral subendocardial injury Abnormal ECG When compared with ECG of 24-JUL-2018 15:38, Atrial fibrillation has replaced Sinus rhythm ST now depressed in Inferior leads ST now depressed in Lateral leads T wave inversion now evident in Inferior leads T wave amplitude has decreased in Anterior leads Confirmed by MESHA HALL MD ([id number]) on 02/06/2023 3:16:09 PM [place]: MESHA HALL MD Heart * Event Display: Echocardiogram - Complete Authored Date: [id number] Transthoracic Echocardiography Report (TTE) Patient Demographics Patient Name MELITA SANZ Date of Study 02/06/2023 Corporate Gender Female Facility Race Ethnicity Date of 1955 Height: 62.99 inches Age 67 year(s) Weight: 132.28 pounds Accession Number [id number] BSA: 1.62 m2 Room Number [id number] BMI: 23.44 kg/m2 Referring Physician Favio Montiel MD Interpreting Dianelys Dietz MD Physician Human Resources Office Assistant Roz Hernandez [facility] Indications Atrial fibrillation. Clinical History Hypertension. COPD. Tobacco abuse. Study Data Type of Study TTE procedure:Echo Complete-Doppler, Colorflow, M-Mode. Study Date02/06/2023 Start Time: 09:31 AM [place] [facility] [place] Study Status: Echo lab Patient Status: Routine Technical Quality: Adequate Blood Pressure:100/72 mmHg EKG: Sinus tachycardia HR: 102 bpm 2D Measurements LV Diastolic Dimension: 3.6 cm LV Systolic Dimension: 3.1 cm LV Septum Diastolic: 0.9 cm LV PW Diastolic: 0.9 cm AO Root Dimension: 3 cm LA ESV (BP):74.2 ml LVOT Stroke Volume: 50.87 ml LA ESV Index: 46 ml/m2 Stroke Volume Index31.4 ml/m2 LVOT: 2 cm Cardiac Index:3.2 l/min/m2 Ascending Aorta:3 cm Doppler Measurements AV Peak Velocity: 170 cm/s MV Peak E-Wave: 149 cm/s AV Peak Gradient: 11.56 mmHg AV Mean Gradient: 6 mmHg AV VTI:22.3 cm LVOT Peak Velocity: 96.2 cm/s LVOT VTI16.2 cm AV Area (Continuity):2.28 cm2 PV Peak Velocity: 78.8 cm/s TR Velocity:299 cm/s PV Peak Gradient: 2.48 mmHg TR Gradient:35.76 mmHg Estimated RAP:8 mmHg Estimated RVSP: 43.8 mmHg E' Septal Velocity: 7.83 cm/s E' Lateral Velocity: 12.8 cm/s E/Med E':19.40321 E/Lat E':11.97077 Cardiac Anatomy Left Ventricle/Interventricular Septum The left ventricle is normal in size. Ejection fraction is 55-60%. No definite wall motion abnormalities detected. There appears to be grade III diastolic dysfunction. Left Atrium/Interatrial Septum The left atrium is mildly to moderately dilated. There appears to be an atrial septal defect. Aortic Valve The aortic valve is calcified and thickened. No significant regurgitation or stenosis. Mitral Valve Trace regurgitation. Aorta The ascending aorta and aortic root are normal in size when indexed. Right Ventricle The right ventricle is normal in size. Function is preserved. Right Atrium The right atrium is dilated. Pulmonic Valve No significant regurgitation. Tricuspid Valve Mild regurgitation. Pumonary Artery The pulmonary artery systolic pressure estimation is 40-45 mmHg. Venous Structures IVC is normal in size. Inspiratory collapse is blunted. Pericardium/Extracardiac No significant pericardial effusion detected. Summary The left ventricle is normal in size. Ejection fraction is 55-60%. No definite wall motion abnormalities detected. There appears to be grade III diastolic dysfunction. The left atrium is mildly to moderately dilated. There appears to be an atrial septal defect. The right ventricle is normal in size. Function is preserved. The right atrium is dilated. The pulmonary artery systolic pressure estimation is 40-45 mmHg. Comparison No prior study available for comparison. Signature * Event Display: Echocardiogram - Complete Authored Date: [id number] Heart Transesophageal * Event Display: Trans-esophageal Echocardiogram Authored Date: [id number] Transesophageal Echocardiography Report (MARTINA) Patient Demographics Patient Name MELITA SANZ Date of Study 02/07/2023 Corporate Gender Female Facility Race Ethnicity Date of 1955 Height: 62.99 inches Age 67 year(s) Weight: 132.28 pounds Accession Number [id number] BSA: 1.62 m2 Room Number [id number] BMI: 23.44 kg/m2 Referring Physician Margarita Scott MD Interpreting Physician Terrell Montiel MD Human Resources Office Assistant Meera Jeffery [facility] Indications Atrial fibrillation. Clinical History Atrial fibrillation. Study Data Type of Study MARTINA procedure:MARTINA with Doppler and Colorflow. Procedure Information:The procedure, including risks and benefits, was explained to the patient and informed consent was obtained. Time out was performed pre-procedure. The transesophageal probe was inserted by the attending handkerchief sample clerk. There were no complications. Study Date02/07/2023 Start Time: 03:46 PM Study Location: [facility] Study Status: MARTINA Suite Patient Status: Routine Technical Quality: Adequate Blood Pressure:123/48 mmHg EKG: Atrial fibrillation HR: 88 bpm MARTINA Performed By: Terrell Randle MD Type of Anesthesia: Anesthesia administered by anesthesiologist. 2D Measurements AO Root Dimension: 2.9 cm LVOT Stroke Volume: 48.18 ml Stroke Volume Index29.74 ml/m2 LVOT: 1.9 cm Cardiac Index:2.62 l/min/m2 Ascending Aorta:3.3 cm Doppler Measurements AV Peak Velocity: 155 cm/s AV Peak Gradient: 9.61 mmHg AV Mean Gradient: 3 mmHg AV VTI:26.9 cm LVOT Peak Velocity: 84.7 cm/s LVOT VTI17 cm AV Area (Continuity):1.79 cm2 TR Velocity:279.8 cm/s TR Gradient:31.32 mmHg Cardiac Anatomy Left Ventricle/Interventricular Septum The left ventricular size is normal. Normal LV systolic function. Ejection fraction is 55-65%. Left Atrium/Interatrial Septum There is no thrombus in the left atrial appendage. There is no mass or thrombus in the left atrium. Left atrial appendage function is reduced. The left atrium is dilated. There is no atrial septal defect visualized by color flow Doppler. There is mild spontaneous contrast seen in the left atrial cavity and appendage . Aortic Valve The aortic valve is trileaflet . The aortic valve appears mildly thickened. There is no aortic stenosis. There is trace aortic regurgitation. Mitral Valve The mitral valve appears mildly thickened. The chordal structure is thickened and calcified. There is mild to moderate mitral regurgitation. Aorta The ascending aorta and aortic root are normal in size. There is moderate plaque in the descending aorta. There is severe plaque in the aortic arch. Right Ventricle The right ventricle is normal in size and function. Right Atrium There is no mass or thrombus in the right atrium. The right atrium is dilated. Pulmonic Valve There is mild pulmonic regurgitation. Tricuspid Valve There is mild to moderate tricuspid valve regurgitation. Pumonary Artery The pulmonary artery systolic pressure estimation is 31 mmHg + right atrial pressure (central venous pressure). Venous Structures There is systolic blunting of pulmonary venous flow. Pericardium/Extracardiac There is no pericardial effusion. Summary 1. There is no thrombus or mass visualized in the left atrial appendage, left atrium or right atrium. Left atrial appendage velocities are reduced. There is mild spontaneous contrast seen in the left atrial cavity and appendage. 2. The left ventricular size is normal. Normal LV systolic function. Ejection fraction is 55-65%. 3. The right ventricle is normal in size and function. The pulmonary artery systolic pressure estimation is 31 mmHg + right atrial pressure (central venous pressure). 4. The mitral valve appears mildly thickened. The chordal structure is thickened and calcified. There is mild to moderate mitral regurgitation. 5. There is mild to moderate tricuspid valve regurgitation. 6. There is moderate plaque in the descending aorta. There is severe plaque in the aortic arch. 7. After confirming absence of thrombus, the patient was electrically cardioverted to sinus rhythm using 200 Joules of synchronized biphasic energy (pads in right parasternal, left sub-scapular position). Patient tolerated the procedure well without complications. Comparison No prior MARTINA study available for comparison. Signature * Event Display: Trans-esophageal Echocardiogram Authored Date: Cardiology * Event Display: Cardiac Rhythm Strips Authored Date: * Event Display: Cardiac Rhythm Strips Authored Date: Hospital Progress note * Margarita Soctt MD: PERFORM, SIGN, VERIFY Event Display: Progress Note [facility] Authored Date: Patient: MELITA SANZ Age: 67 years Sex: Female : 1955 Associated Diagnoses: None Author: Margarita Scott MD Patient feels really good after cardioversion yesterday. Was cardioverted back into sinus rhythm. She is a little lightheaded however. Admits she has not really gotten to move around much. Physical Examination Vital Signs Vitals : VITALS 02/08/2023 12:42 EDT Pulse Rate 64 bpm Systolic Blood Pressure 107 mm Hg Diastolic Blood Pressure 75 mm Hg 02/08/2023 11:19 EDT Temperature 98 DegF Temperature Route Oral Pulse Rate 64 bpm Respiratory Rate 16 br/min Systolic Blood Pressure 107 mm Hg Diastolic Blood Pressure 75 mm Hg Oxygen Saturation 94 % Mode of Delivery (Oxygen) Room air . Weight : Weight lb/oz 02/07/2023 5:44 EDT Weight lb/oz 130 lb 1 oz . BMI : Body Mass Index 02/02/2023 21:09 EDT Body Mass Index 23.05 kg/m2 . General Appearance NAD. Sitting in the bedside chair with her legs up comfortably. Respiratory Lungs: CTA. Cardiac Cardiac: no M/G/R. Rhythms: RRR. Abdomen/GI Abdomen: soft, non-distended, bowel sounds. Extremities Extremities: Left foot is bandaged and casted but right foot has no edema. Results Review 7 Day Results Results Laboratory : LABORATORY 02/08/2023 1:51 EDT WBC 7.2 k/mm3 RBC 2.71 m/mm3 L Hgb 7.6 Gm/dL L Hct 23.7 % L MCV 87.5 femtoliters MCH 28.0 pg MCHC 32.1 g/dL L Platelet Count 325 k/mm3 RDW-SD 48.4 femtoliters H MPV 9.2 femtoliters L Nucleated RBC (Automated) 0.3 #/100 WBC'S Abs. NRBC 0.0 k/mm3 Sodium 130 mmol/L L Potassium 5.1 mmol/L Chloride 95 mmol/L L Bicarbonate Level 22 mmol/L Anion Gap 13 Glucose Level 113 mg/dL H BUN 15 mg/dL Creatinine-Blood 0.9 mg/dL Estimated GFR Creatinine 73 ML/MIN/1.73 M2 Calcium 8.5 mg/dL L Magnesium 1.9 mg/dL Protein, Total 5.5 Gm/dL L Albumin 3.6 Gm/dL AG Ratio 1.9 Alkaline Phosphatase 95 units/L AST (SGOT) 133 units/L H ALT (SGPT) 126 units/L H Bilirubin, Total 0.6 mg/dL Impression and Plan 67-year-old lady with a history of hypertension, hyperlipidemia presenting with trimalleolar ankle fracture???status post ORIF. Postop course was complicated by A-fib with RVR. She underwent MARTINA cardioversion yesterday and remains in a sinus rhythm in the 60s. She is experiencing some lightheadedness which is likely secondary to a combination of deconditioning but could also be related to her current beta-ramos dose which is probably too high since her heart rates are in the 60s. Would transition to a lower dose of 25 mg XL as has already been done. Patient will be discharged on Eliquis 5 twice daily. This should be continued for at least 4 weeks after cardioversion but ideally indefinitely given higher [id number] score. Patient will also remain on Plavix for history of PVD???she is followed by vascular surgery as an outpatient. She is also on atorvastatin 40 mg at bedtime which should be continued as well. We will sign off from a cardiac standpoint. I will plan to see her in the office in 4 weeks. I wished her the best of luck with a quick recovery. Discussed with Dr. Stahl * Farhan Cadena RN: PERFORM, SIGN, VERIFY Event Display: Progress Note Hospital Authored Date: [id number] Patient: MELITA SANZ Age: 67 years Sex: Female : 1955 Associated Diagnoses: None Author: Farhan Cadena RN Findings Problem Related to Alteration in Musculoskeletal : Alteration in Musculoskeletal Func/new 02/08/2023 7:00 EDT Alteration in Musculoskeletal Related to Fracture, Mobility, Orthopedic Procedure Goals & Outcomes, Musculoskeletal Affected extremity will maintain color/motion/sensation, Pt able to perform ADL's to best of ability, Pt demonstrates precautions/exercise/ transfers per protocol, Pt will ambulate safely with assistive device, Pt will be free from complications of immobility, Pt will demonstrate ability to participate in ADL's, Pt will report acceptable level of comfort/painrelief Interventions, Musculoskeletal Monitor patients ambulation status, monitor Color/Motion/Sensation, Assist with repositioning, Encourage deep breathing & coughing exercises, Notify MD immediately if tissue perfusion deteriorates, Obtain assistive devices as needed, Teach & Encourage use of Incentive spirometer, Teach Pt/caregiver on ADL's & adaptive equipment, Teach Pt/caregiver on exercises, Teach pt/caregiver on use of pain scale, Teach Pt/caregiver complications of immobility, Teach Pt/caregiver techniques to increase mobility, Teach Pt/caregiver on safety precautions BH Goals/Interventions, Musculoskeletal Yes Musculoskeletal, Problem Start 02/03/2023 3:03 Reviewed Plan with, Musculoskeletal Patient Patient Progression, Musculoskeletal Pt progressing according to plan . Narrative/Incidental Pt is A/Ox4. VSS. Pt reports adequate pain control with PRN Percocet. Lungs are clear and diminished bilaterally at the bases on room air. Pt reports a non- productive cough and shortness of breath with exertion. Pt using incentive spirometer as instructed. Pt has +PP and +CMS in bilateral lower extremities. CMS checks per order. Pt is on tele monitor in normal sinus rhythm. Pt refused SCDs. +[id number]. Abdomen is soft, round, and non-tender. Pt denies N/V. Pt is on a regular diet, tolerating well. Pt voids. Pt has right lower extremity splint and naheed wrap clean, dry, and intact. RLE elevated. Pt OOB to chair with walker, tolerating well. Pt NWB to RLE. Pt is resting in chair with call scott in reach. . Discharge Information Case Management Discharge Plan : Case Management Discharge Plan Data 02/05/2023 10:48 EDT Discharge Level of Care at Discharge care home facility Discharge Nursing Homes/Rehab Facilities [place] Discharge Transportation Arranged Am Med Response [address] [facility] [address] [phone] Discharge Arranged Transport Date/Time 02/05/2023 13:00 (In Error) Mode of Transportation Arranged Chair [facility]1 Physical Therapy Service Comments #1 [facility] a chair van has been booked for your transport Name of Person Notified of Transfer patient Rehabilitation Discharge : Rehab Discharge Index 02/08/2023 8:05 EDT Walker: distance < 10 02/04/2023 13:11 EDT Walker: distance < 10 02/03/2023 14:18 EDT Comments on treatment indicated functional mobility, safety, ADLs Full chart review completed Yes Hospital course 67 year old female s/p I&D ORIF right trimalleolar ankle fracture without posterior lip fixation 02/03/2023 8:58 EDT Comments on treatment indicated 67F s/p ORIF, right ankle trimalleolar fracture without posterior lip fixation (Dr. Rousseau) on 02/02. NWB RLE. PT for bed mob, trans, balance, gait training. Rec post acute rehab. Walker: distance < 10 Distance pt will ambulate >10' Full chart review completed Yes Hospital course Per [facility] Other findings Mod complexity 2/2 PMH and reason for hospitalization Plan of care PT Gait training, Transfer training, Therapeutic exercise, Functional Activities, Balance training * Tesha Kincaid RN: PERFORM, MODIFY, MODIFY, MODIFY, MODIFY, SIGN, VERIFY Event Display: Progress Note Hospital Authored Date: [id number] Patient: MELITA SANZ Age: 67 years Sex: Female : 1955 Associated Diagnoses: None Author: Tesha Kincaid RN Findings Problem Related to Alteration in Musculoskeletal : Alteration in Musculoskeletal Func/new 02/07/2023 23:00 EDT Alteration in Musculoskeletal Related to Fracture, Mobility, Orthopedic Procedure Goals & Outcomes, Musculoskeletal Affected extremity will maintain color/motion/sensation, Pt able to perform ADL's to best of ability, Pt demonstrates precautions/exercise/ transfers per protocol, Pt will ambulate safely with assistive device, Pt will be free from complications of immobility, Pt will demonstrate ability to participate in ADL's, Pt will report acceptable level of comfort/painrelief Interventions, Musculoskeletal Monitor patients ambulation status, monitor Color/Motion/Sensation, Assist with repositioning, Encourage deep breathing & coughing exercises, Notify MD immediately if tissue perfusion deteriorates, Obtain assistive devices as needed, Teach & Encourage use of Incentive spirometer, Teach Pt/caregiver on ADL's & adaptive equipment, Teach Pt/caregiver on exercises, Teach pt/caregiver on use of pain scale, Teach Pt/caregiver complications of immobility, Teach Pt/caregiver techniques to increase mobility, Teach Pt/caregiver on safety precautions, monitor CMS of injured extremity, Elevate injured extremity, Maintain proper alignment of injured extremity BH Goals/Interventions, Musculoskeletal Yes Musculoskeletal, Problem Start 02/03/2023 3:03 Reviewed Plan with, Musculoskeletal Patient Patient Progression, Musculoskeletal Pt progressing according to plan . Evaluation Patient is A&O x 4. +CMS. Denies numbness and tingling. Denies fever, headache, and chills. Vital signs are stable. Reports 5/10 right ankle pain. Medicated with PRN PO Percocet with adequate relief. Lung sounds are clear/diminished. Mild inspiratory/expiratory wheeze auscultated bilaterally anteriorly. Using IS with adequate effort, reaching between 750-900. O2 saturations sustaining [id number]% on room air. Denies SOB at rest, however endorses SOB with intermittent RLE spasms. +Pedal pulses. Non-edematous to LLE. Denies chest pain. On telemetry, patient is in Normal Sinus Rhythm. Heart rate sustaining in the 60's-70's. Abdomen is round, soft, and nontender. +BS x 4. Tolerating regular diet. Endorses belching and passing flatus. Last BM was on 02/06. NWB to RLE. Standing and pivoting from bed to bedside commode with 1-assist and a walker with steady gait. PrimaFit in place that isdraining adequate amounts of clear, yellow urine. RLE is splinted and wrapped in naheed, clean, dry, and intact. RLE elevated on a pillow for comfort. RLE with +CMS, able to wiggle toes, warm to palpation, +sensation, +capillary refill. Patient with generalized bruising noted throughout body. Sleepingcomfortably in bed. Call scott within reach. Will maintain patient's safety and comfort. Discharge Information Case Management Discharge Plan : Case Management Discharge Plan Data 02/05/2023 10:48 EDT Discharge Level of Care at Discharge care home facility Discharge Nursing Homes/Rehab Facilities [facility] Discharge Transportation Arranged er Med Response [address] [facility] [id number] [phone] Discharge Arranged Transport Date/Time 02/05/2023 13:00 Mode of Transportation Arranged Chair Van Name of Agency #1 [facility] Service Categories #1 Physical Therapy Service Comments #1 You are being discharged to [facility] for physical therapy- a chair van has been booked for your transport Name of Person Notified of Transfer patient Rehabilitation Discharge : Rehab Discharge Index 02/04/2023 13:11 EDT Walker: distance < 10 02/03/2023 14:18 EDT Comments on treatment indicated functional mobility, safety, ADLs Full chart review completed Yes Hospital course 67 year old female s/p I&D ORIF right trimalleolar ankle fracture without posterior lip fixation 02/03/2023 8:58 EDT Comments on treatment indicated 67F s/p ORIF, right ankle trimalleolar fracture without posterior lip fixation (Dr. Rousseau) on 02/02. NWB RLE. PT for bed mob, trans, balance, gait training. Rec post acute rehab. Walker: distance < 10 Distance pt will ambulate >10' Full chart review completed Yes Hospital course Per [facility] Other findings Mod complexity 2/2 PMH and reason for hospitalization Plan of care PT Gait training, Transfer training, Therapeutic exercise, Functional Activities, Balance training Note * Farhan Cadena RN: PERFORM Event Display: Discharge/Transfer Note Hospital Authored Date: [id number] Nursing Discharge Note Entered On: 02/08/2023 14:55 EDT Performed On: 02/08/2023 14:54 EDT by Farhan Cadena RN Nursing Discharge Note 2 Discharge Time : 02/08/2023 14:55 EDT Discharge Level of Care at Discharge : care home facility Discharge Nursing Homes/Rehab Facilities : [facility] [address] [place] Patient Left Unit Via : Ambulance Patient Accompanied Off Unit with : Ambulance/Chair Van Personnel Handover Given to Transport Personnel : Yes DC Instructions Provided & Signed by Pt : Yes Patient Understands D/C Instructions : Yes Verbalized Understanding of D/C Plan By : Other: GRICEL Perez at [facility] Patient Instructions Discharge Signed : Yes Did Pt have Specialty Bed or Wound Vac : No Farhan Cadena RN - 02/08/2023 14:54 EDT * Favio [place], Vale Montiel: PERFORM Event Display: Discharge/Transfer Note Hospital Authored Date: [id number] Patient: ??MELITA SANZ ? Age:??67 Years?Sex:??Female?:??1955?? Patient Information Discharge Location: [facility] Primary Care Physician: Eric WESTFALL , Wilma Cornejo Admit Date/Time: 02/02/23 13:33 Discharge Disposition Discharge Disposition: Care Home Facility/Rehab Discharge Diagnosis Ankle fracture, right (S82.891A) Dislocation of ankle, right, open (S93.04XA) Open fracture ankle, bimalleolar (S82.843B) Tibia fracture (S82.209A) Atrial fibrillation??with rapid ventricular response _ Discharge Medications apixaban?5?Milligram?By Mouth?2 times a day Atorvastatin (atorvastatin 40 mg oral tablet)?1?tab(s)?40?Milligram?By Mouth?Daily Clopidogrel (Plavix 75 mg oral tablet)?75?Milligram?1?tablet?By Mouth?Daily Metoprolol (metoprolol 25 mg oral tablet, extended release)?25?Milligram?1?tablet?ByMouth?Daily Oxycodone (oxyCODONE 5 mg oral tablet)?5?Milligram?1?tablet?By Mouth?Every 6 hours?as needed?for 5?Days?as needed for pain Paroxetine (Paxil 20 mg oral tablet)?20?Milligram?1?tablet?By Mouth?Daily ? Allergies Allergies ?(Active and Proposed Allergies Only) cefTRIAXone? (Severity: Unknown severity, Onset: Unknown) ? Hospital Course ??67-year-old female who?? has a PMH of HTN, hypercholesterolemia , COPD and stent placed on her iliac artery 2 years ago [place] [facility] [place]for??open right ankle injury. ??She reports that she was walking near her??nightstand when she banged her ankle into it. Vancomycin and Tetanus ordered by ED. Radiographs obtained in the ED demonstrated open right bimalleolar??ankle fracture and dislocation. Orthopedic surgery service was consulted?? who did put the splint for immobilization. ??She was then admitted to medical floor for further management. ??Orthopedic??was consulted and she underwent ORIF?right trimalleolar ankle fracture without posterior lip fixation on 02/02. She tolerated the procedure very well without immediate complications.?? She was started on heparin??for DVT prophylaxis while inpatient.?? She remained hemodynamically stable throughout her stay. ??Was evaluated by??physical therapy with recommendation for rehab placement.?? and was she getting discharged however she developed severe hypotension and tachycardia noted prior to the discharge. ??EKG was obtained and she was found to be in A-fib RVR. ??I have??given multiple doses of??metoprolol IV.?? Metoprolol p.o. dose was increased to 25 mg 3 times a day. ??Orthopedic was agreeable for??at least 4 weeks of??uninterrupted anticoagulation before??cardiology was consulted and the patient and the patient underwent??MARTINA cardioversion on 02/07/2023??with successful druze of sinus rhythm.?? Patient was started on??Eliquis.?? She tolerated??the cardioversion very well without immediate complications.?? She wa s??monitored for another 24 hours postprocedure. ??She remained in??sinus rhythm. ??She was a little dizzy??before, amlodipine and losartan should be??discontinued??with close??monitoring of blood pressure.?? She will be also maintained on metoprolol??25 mg XL.?? She remained hemodynamically stable throughout hospital stay. ??Therefore, the patient be discharged in stable condition??to rehab. ??She should follow-up with her primary care physician and cardiology.?? Cardiology will set up??a close follow-up within 2 weeks.?? Blood pressure meds can be??resumed??if the blood pressure is trendingup Objective Assessment and Plan ? Measurements?? Height: 160 cm (02/07/23) Weight: 59 kg (02/07/23) Dry Weight: 59 kg (02/02/23) Body Mass Index: 23.05 kg/m2 (02/02/23) ? Vital Signs?? Temperature: 98 DegF (02/08/23 11:19:00) Temperature Route: Oral (02/08/23 11:19:00) Pulse Rate: 64 bpm (02/08/23 12:42:00) Heart Rate Monitored: 65 bpm (02/07/23 16:49:00) Respiratory Rate: 16 br/min (02/08/23 11:19:00) Systolic Blood Pressure: 107 mm Hg (02/08/23 12:42:00) Diastolic Blood Pressure: 75 mm Hg (02/08/23 12:42:00) Blood pressure sites: Arm, left (02/08/23 11:19:00) Pulse Pressure: 32 mm Hg (02/08/23 11:19:00) Oxygen Saturation: 94 % (02/08/23 11:19:00) Mode of Delivery (Oxygen): Room air (02/08/23 11:19:00) Early Warning Score: 2 (02/08/23 12:43:09) ? . Physical Exam ??Constitutional: Alert, in no distress. ?Mental Status: Oriented to person, place and time. ?Head: Normocephalic. ?Eyes: Pupils are equal, round and reactive to light. Extraocular muscles intact. ?Ear, Nose and Throat: Oropharynx clear, mucous membranes moist. Ears and nose without masses, lesions or deformities. Trachea midline. ?Neck: Supple, Full range of motion. ?Respiratory:?? mild wheezing +ve ?Cardiovascular: S1 S2 regular. No murmurs, rubs or gallops. ?Gastrointestinal: Abdomen soft, non-tender, non-distended. Normal bowel sounds. No pulsatile mass. No hepatosplenomegaly. ?Genitourinary: No costovertebral angle tenderness. ?Neurologic: Cranial nerves II-XII grossly intact. No focal neurological deficits. Flexor plantar response. Moves all extremities spontaneously. Sensation intact bilaterally. ?Skin: No rashes or lesions. No petechiae or purpura.?Musculoskeletal: Rt ankle has slint for immobilization ?Heme/Lymphatics/Immun: Palpation of neck reveals no swelling or tenderness of neck nodes. Palpation of groin reveals no swelling or tenderness of groin nodes. ?Psychiatric: Normal mood and affect Surgical Procedures Debridement Wound 02/02/2023 17:10 Open Reduction Internal Fixation Ankle 02/02/2023 17:10 Consultants Orthopedic??surgery. Cardiology Pending Results Add On Lab Order ordered on 02/05/2023 Add On Lab Order ordered on 02/06/2023 Transfuse RBCs ordered on 02/06/2023 Follow-Up Appointments Added Follow Up ?Time Frame ?Comments Eric WESTFALL , Wilma Cornejo Patient Instructions Continue DVT prophylaxis (heparin) for 2-3 weeks postop - Follow up at [facility]??with Dr. Rousseau in 1-2 weeks Post Discharge Care Discharge ?02/08/23 12:56:00 EDT Home Health Face to Face ^HomeHealthFTF Results Discharge Labs BLOOD BANK Blood Type AB Positive ()?? 02/06/2023 10:14 Antibody Screen Negative ()?? 02/06/2023 10:14 RBC Unit ID [id number] ()?? 02/06/2023 10:14 RBC Available PT ()?? 02/06/2023 10:14 ?? BLOOD COUNT & DIFF WBC 7.2 k/mm3 ()?? 02/08/2023 01:51 RBC 2.71 m/mm3 (Low)?? 02/08/2023 01:51 Hgb 7.6 Gm/dL (Low)?? 02/08/2023 01:51 Hct 23.7 % (Low)?? 02/08/2023 01:51 MCV 87.5 femtoliters ()?? 02/08/2023 01:51 MCH 28.0 pg ()?? 02/08/2023 01:51 MCHC 32.1 g/dL (Low)?? 02/08/2023 01:51 Platelet Count 325 k/mm3 ()?? 02/08/2023 01:51 RDW-SD 48.4 femtoliters (High)?? 02/08/2023 01:51 MPV 9.2 femtoliters (Low)?? 02/08/2023 01:51 Nucleated RBC (Automated) 0.3 #/100 WBC'S ()?? 02/08/2023 01:51 Abs. NRBC 0.0 k/mm3 ()?? 02/08/2023 01:51 Abs. Neut 3.2 k/mm3 ()?? 02/03/2023 06:10 Abs. Lymph 1.3 k/mm3 ()?? 02/03/2023 06:10 Abs. Dixon 0.8 k/mm3 ()?? 02/03/2023 06:10 Abs. Eo 0.1 k/mm3 ()?? 02/03/2023 06:10 Abs. Baso 0.0 k/mm3 ()?? 02/03/2023 06:10 Neut % 59.1 % ()?? 02/03/2023 06:10 Lymph % 23.4 % ()?? 02/03/2023 06:10 Dixon % 15.4 % (High)?? 02/03/2023 06:10 Eos % 1.3 % ()?? 02/03/2023 06:10 Baso % 0.4 % ()?? 02/03/2023 06:10 Imm Gran 0.4 % ()?? 02/03/2023 06:10 Abs. Imm Gran 0.0 k/mm3 ()?? 02/03/2023 06:10 ?? CHEM GENERAL Sodium 130 mmol/L (Low)?? 02/08/2023 01:51 Potassium 5.1 mmol/L ()?? 02/08/2023 01:51 Chloride 95 mmol/L (Low)?? 02/08/2023 01:51 Bicarbonate Level 22 mmol/L ()?? 02/08/2023 01:51 Anion Gap 13 ()?? 02/08/2023 01:51 Glucose Level 113 mg/dL (High)?? 02/08/2023 01:51 Glucose, POC 131 mg/dL (High)?? 02/07/2023 15:38 Hemoglobin A1C (Monitoring) 5.6 % ()?? 02/05/2023 02:11 BUN 15 mg/dL ()?? 02/08/2023 01:51 Creatinine-Blood 0.9 mg/dL ()?? 02/08/2023 01:51 Estimated GFR Creatinine 73 ML/MIN/1.73 M2 ()?? 02/08/2023 01:51 Calcium 8.5 mg/dL (Low)?? 02/08/2023 01:51 Phosphorus 1.9 mg/dL (Low)?? 02/03/2023 06:10 Magnesium 1.9 mg/dL ()?? 02/08/2023 01:51 Protein, Total 5.5 Gm/dL (Low)?? 02/08/2023 01:51 Albumin 3.6 Gm/dL ()?? 02/08/2023 01:51 AG Ratio 1.9 ()?? 02/08/2023 01:51 Alkaline Phosphatase 95 units/L ()?? 02/08/2023 01:51 AST (SGOT) 133 units/L (High)?? 02/08/2023 01:51 ALT (SGPT) 126 units/L (High)?? 02/08/2023 01:51 Bilirubin, Total 0.6 mg/dL ()?? 02/08/2023 01:51 Vitamin B12 Level 272 pg/mL ()?? 02/06/2023 01:28 Folic Acid Level 10.5 ng/mL ()?? 02/06/2023 01:28 Iron Level 20 mcg/dL (Low)?? 02/06/2023 01:28 Iron Binding Capacity, Unsaturated 245 mcg/dL ()?? 02/06/2023 01:28 Iron Binding Capacity, Estimated Total 265 mcg/dL ()?? 02/06/2023 01:28 % Iron Saturation 8 % (Low)?? 02/06/2023 01:28 Ferritin Level 106 ng/mL ()?? 02/06/2023 01:28 ?? ENDOCRINE/TUMOR MARKER TSH 2.49 uIU/mL ()?? 02/06/2023 01:28 ? HEME OTHER Hold Blue Top SPECIMEN DISCARDED AFTER 4 HOURS. ()?? 02/02/2023 10:43 ? URINE OTHER Est Creatinine Clearance 50.85 mL/min ()?? 02/07/2023 03:55 ? VIROLOGY COVID-19 by RT-PCR NEGATIVE ()?? 02/02/2023 11:45 ? 55 minutes spent on discharge * Lauren Aranda RN: VERIFY, PERFORM, SIGN Event Display: Case Management Discharge Plan Authored Date: Patient: MELITA SANZ Age: 67 years Sex: Female : 1955 Associated Diagnoses: None Author: Lauren Aranda RN Discharge Plan Case Management Discharge Plan : Case Management Discharge Plan Data 02/05/2023 10:48 EDT Discharge Level of Care at Discharge care home facility Discharge Nursing Homes/Rehab Facilities [facility] Discharge Transportation Arranged [facility] [address] [place] [phone] Discharge Arranged Transport Date/Time 02/08/2023 14:30 (Modified) Mode of Transportation Arranged Chair Van Name of Agency #1 [facility] Service Categories #1 Physical Therapy Service Comments #1 You are being discharged to [facility] for physical therapy- a chair van has been booked for your transport. You will be leaving 2:30 PM by chair van (Modified) Name of Person Notified of Transfer patient * Farhan Cadena RN: PERFORM Event Display: Patient Education/Instruction Authored Date: Inpatient Adult Discharge Instructions [address] [address] Name: MELITA SANZ : 1955 Visit: 02/02/2023 13:33:00 Current Date: 02/08/2023 13:13 Account: [id number] Inpatient Adult Discharge Instructions We would like [...] and their families. Surveys are administered by [employer] ?? If further treatment with your primary care physician or another doctor is recommended, it is important for you to keep the appointment. Call your primary care physician or return to the Emergency Department immediately if your condition worsens, fails to improve, or new symptoms develop. If you need to find a doctor, you can call [facility] [employer] for a referral at [phone] or toll free at [phone]) or log in to [email or web address].. ?? You can view and manage your care through the patient portal or by using a health care juvenal of your choosing. slinkset is a website that allows you to securely view your medical information including your hospital discharge summary, office visit summaries, medications and follow-up visits. You can also request appointments, renew medications, and request access to your medical information using a health care juvenal of your choosing, or just ask a question. You can enroll at [email or web address] or register during your next office visit. You have been discharged from [facility], Patient Care Unit: SW6. If you have any questions regarding these instructions after you leave, please call us and we will be happy to assist you. [facility] Your Care Team Attending Physician Favio WESTFALL, Vale Montiel Consulting Providers Onelia WESTFALL, Theron Hayward; Nena WESTFALL, Magui Montiel; Tyler WESTFALL, James Bhakta NP, Sylvia Tomas Discharging Providers Vale Stahl MD Reason for Admission Pt coming from home with c/o R ankle injury. Pt sts that she accidentally kicked a dresser last night approx 7 hours ago. NOw with open R ankle fx. Bleeding noted to EMS dressing. .Pt is on plavix. 20g to LAC Your Diagnosis Tibia fracture Ankle fracture, right Open fracture ankle, bimalleolar Dislocation of ankle, right, open Tests Performed Below is a partial list of the tests performed during your hospitalization. You may have had other tests and procedures not included in this list. Please discuss all test results with your provider. Basic Metabolic Panel BUN Calcium Level CBC CBC w/ Differential Comprehensive Metabolic Panel COVID-19 (Novel Coronavirus), Rapid PCR Creatinine Electrolytes FERRITIN FOLIC ACID GLUCOSE POC HEMOGLOBIN A1C Hold Blue Top Tube IRON & TIBC Magnesium Level Phosphorus Level TSH Type and Screen VITAMIN B12 XR Ankle 2 Views Right XR Ankle Min 3 Views Right XR C-Arm > 1 Hour XR Tibia/Fibula 2 Views Right Primary Care Provider Wilma Reyes MD Advance Directive Health Care Proxy on File Yes - Health Care Proxy Discharge Vitals Temperature: 98 DegF Height: 160 cm Pulse Rate: 64 bpm Weight: 59 kg Respiratory Rate: 16 br/min Body Mass Index: 23.05 kg/m2 Systolic Blood Pressure: 107 mm Hg Body surface area: 1.62 Diastolic Blood Pressure: 75 mm Hg ?? Oxygen Saturation: 94 % ?? Studies Pending All tests and labs ordered during this hospital stay have been completed unless listed below. Please discuss all pending results with your provider listed above in these instructions. ?? Add On Lab Order Transfuse RBCs What to do next Instructions From Your Doctor Continue DVT prophylaxis (heparin) for 2-3 weeks postop - Follow up at [facility]??with Dr. Rousseau in 1-2 weeks Discharge Orders You Need to Schedule the Following Appointments Follow Up with??Wilma Reyes MD Where: [address] [place] [address]- Discharge Medications MELITA SANZ :1955 Visit Date:02/02/2023 Medications: Please continue your medications until treatment is completed or stopped by your provider. Medications not listed below should be discontinued. Discuss any questions related to medications with your provider. What How Much When Instructions Next Dose New apixaban 5 Milligram Oral Twice a day 7/4 @ 9 PM New Oxycodone (oxyCODONE 5 mg oral tablet) 1 tab(s) Oral Every 6 hours as needed for as needed for pain Duration: 5 Days as needed Changed Metoprolol (metoprolol 25 mg oral tablet, extended release) 1 tab(s) Oral Daily 7/5 Unchanged Atorvastatin (atorvastatin 40 mg oral tablet) 1 tab(s) Oral Daily 7/5 Unchanged Clopidogrel (Plavix 75 mg oral tablet) 1 tab(s) Oral Daily 02/09 Unchanged Paroxetine (Paxil 20 mg oral tablet) 1 tab(s) Oral Daily 02/09 ?? What How Much When Comments Stop Taking Amlodipine (amLODIPine 10 mg oral tablet) 1 tab(s) Oral Daily Stop Taking Heparin 5,000 unit(s) Subcutaneous Injection Twice a day Stop Taking Lisinopril Oral Daily Stop Taking Oxycodone / Acetaminophen (acetaminophen-oxycodone 300 mg-5 mg oral tablet) 1 tab(s) Oral Every 3 hours as needed for Pain , Mild Duration: 3 Days or Pain, Moderate ?? Test Results Below is a partial list of the most recent Laboratory test results done prior to this discharge. You may have had other tests and procedures not included in this list. Please discuss all test resultswith your provider. Est Creatinine Clearance - 50.85 mL/min (02/07/2023) Basic Metabolic Panel (02/02/2023) ???Sodium - 130 mmol/L???Potassium - 4.6 mmol/L???Chloride - 100 mmol/L???Bicarbonate Level - 17 mmol/L???Anion Gap - 13???Glucose Level - 108 mg/dL???BUN - 14 mg/dL???Creatinine-Blood - 1.0 mg/dL???Estimated GFR Creatinine - 63 ML/MIN/1.73 M2???Calcium - 8.3 mg/dL BUN (02/03/2023) ???BUN - 10 mg/dL Calcium Level (02/03/2023) ???Calcium - 7.8 mg/dL CBC (02/08/2023) ???WBC - 7.2 k/mm3???RBC - 2.71 m/mm3???Hgb - 7.6 Gm/dL???Hct - 23.7 %???MCV - 87.5 femtoliters???MCH - 28.0 pg???MCHC - 32.1 g/dL???Platelet Count - 325 k/mm3???RDW-SD - 48.4 femtoliters???MPV - 9.2femtoliters???Nucleated RBC (Automated) - 0.3 #/100 WBC'S???Abs. NRBC - 0.0 k/mm3 CBC w/ Differential (02/03/2023) ???WBC - 5.3 k/mm3???RBC - 2.71 m/mm3???Hgb - 7.8 Gm/dL???Hct - 24.3 %???MCV - 89.7 femtoliters???MCH - 28.8 pg???MCHC - 32.1 g/dL???Platelet Count - 195 k/mm3???RDW-SD - 47.0 femtoliters???MPV - 8.9femtoliters???Nucleated RBC (Automated) - 0.0 #/100 WBC'S???Abs. NRBC - 0.0 k/mm3???Abs. Neut - 3.2 k/mm3???Abs. Lymph - 1.3 k/mm3???Abs. Dixon - 0.8 k/mm3???Abs. Eo - 0.1 k/mm3???Abs. Baso - 0.0 k/mm3???Neut % - 59.1 %???Lymph % - 23.4 %???Dixon % - 15.4 %???Eos % - 1.3 %???Baso % - 0.4 %???Imm Gran- 0.4 %???Abs. Imm Gran - 0.0 k/mm3 Comprehensive Metabolic Panel (02/08/2023) ???Sodium - 130 mmol/L???Potassium - 5.1 mmol/L???Chloride - 95 mmol/L???Bicarbonate Level - 22 mmol/L???Anion Gap - 13???Glucose Level - 113 mg/dL???BUN - 15 mg/dL???Creatinine-Blood - 0.9 mg/dL???Estimated GFR Creatinine - 73 ML/MIN/1.73 M2???Calcium - 8.5 mg/dL???Protein, Total - 5.5 Gm/dL???Albumin - 3.6 Gm/dL???AG Ratio - 1.9???Alkaline Phosphatase - 95 units/L???AST (SGOT) - 133 units/L???ALT (SGPT) - 126 units/L???Bilirubin, Total - 0.6 mg/dL COVID-19 (Novel Coronavirus), Rapid PCR (02/02/2023) ???COVID-19 by RT-PCR - NEGATIVE Creatinine (02/03/2023) ???Creatinine-Blood - 0.9 mg/dL???Estimated GFR Creatinine - 76 ML/MIN/1.73 M2 Electrolytes (02/03/2023) ???Sodium - 131 mmol/L???Potassium - 3.9 mmol/L???Chloride - 102 mmol/L???Bicarbonate Level - 22 mmol/L???Anion Gap - 7 FERRITIN (02/06/2023) ???Ferritin Level - 106 ng/mL FOLIC ACID (02/06/2023) ???Folic Acid Level - 10.5 ng/mL GLUCOSE POC (02/07/2023) ???Glucose, POC - 131 mg/dL HEMOGLOBIN A1C (02/05/2023) ???Hemoglobin A1C (Monitoring) - 5.6 % Hold Blue Top Tube (02/02/2023) ???Hold Blue Top - SPECIMEN DISCARDED AFTER 4 HOURS. IRON & TIBC (02/06/2023) ???Iron Level - 20 mcg/dL???Iron Binding Capacity, Unsaturated - 245 mcg/dL???Iron Binding Capacity, Estimated Total - 265 mcg/dL???% Iron Saturation - 8 % Magnesium Level (02/08/2023) ???Magnesium - 1.9 mg/dL Phosphorus Level (02/03/2023) ???Phosphorus - 1.9 mg/dL TSH (02/06/2023) ???TSH - 2.49 uIU/mL Type and Screen (02/06/2023) ???Blood Type - AB Positive???Antibody Screen - Negative???RBC Unit ID - [id number]???RBC Available - PT VITAMIN B12 (02/06/2023) ???Vitamin B12 Level - 272 pg/mL Immunizations This Visit Given Vaccine Date tetanus/diphtheria/pertussis, acel(Tdap) 02/02/2023 Allergies (NKA means No Known Allergies) cefTRIAXone [...] Belongings I fully understand and agree that [facility] accepts no responsibility for all my personal [...] of Valuable and Belonging List: With patient Disposition of Belongings: Valuables Locked Date for Pt to Sign Valuables/Belongings: 02/02/23 21:08:00 ?? Other Discharge Information ?? Wound Assessment?? Wound Assessment?? Wound Type I: Traumatic Wound ?? Case Management Discharge Plan?? Discharge Plan?? Discharge Agency Information?? Discharge Level of Care at Discharge: care home facility Name of Agency #1: [facility] Discharge Transportation Arranged: [facility] [address] [facility] [address] [phone] Service Categories #1: Physical Therapy Mode of Transportation Arranged: Chair Van Service Comments #1: You are being discharged to [facility] for physical therapy- a chair van has been booked for your transport Discharge Nursing Homes/Rehab Facilities: [facility] Name of Person Notified of Transfer: patient ?? Pulmonary Rehab Status?? Pulmonary Rehab Discharge Status?? [...] are strongly encouraged to quit. Please call [facility] [employer] at [phone] or [phone]) or log in to [email or web address] for referrals to smoking cessation programs. ?? 885 Suicide & Crisis Lifeline is available 28/02 if you or someone you know needs to find a reason to keep living. By calling 952 you'll be connected to a skilled, trained counselor at a crisis center in your area. INPATIENT DISCHARGE INSTRUCTIONS SIGNATURE PAGE ENRIQUETA MELITA Location:[facility] Registration Date and Time:02/02/2023 13:33 EDT Primary Care Physician: Eric WESTFALL , Wilma Cornejo, Attending Physician: Favio WESTFALL, Vale Montiel, I MELITA SANZ, have received the above patient education materials/instructions and have verbalized understanding. If ambulance or transport services are being used I further acknowledge being given a choice of service. ?? If you need to contact me, please call me at this number: . Patient/Applied Biology Professor Name: Patient/Applied Biology Professor Signature: Relationship to Patient: Witness Name/Signature: Date: * Event Display: Discharge/Transfer Note Hospital Authored Date: * Enedina Osorio: PERFORM, SIGN, VERIFY Event Display: Case Management Discharge Plan Authored Date: Patient: MELITA SANZ Age: 67 years Sex: Female : 1955 Associated Diagnoses: None Author: Enedina Osorio Discharge Plan Case Management Discharge Plan : Case Management Discharge Plan Data 02/05/2023 10:48 EDT Discharge Level of Care at Discharge care home facility Discharge Nursing Homes/Rehab Facilities [facility] Discharge Transportation Arranged [facility] [address] [facility] [phone] Discharge Arranged Transport Date/Time 02/05/2023 13:00 Mode of Transportation Arranged Chair Van Name of Agency #1 [facility] Service Categories #1 Physical Therapy Service Comments #1 You are being discharged to [facility] for physical therapy- a chair van has been booked for your transport Name of Person Notified of Transfer patient * Jacqueline Hayden RN: PERFORM Event Display: Patient Education/Instruction Authored Date: [id number] Inpatient Adult Discharge Instructions [address] [address] Name: MELITA SANZ : 1955 Visit: 02/02/2023 13:33:00 Current Date: 02/05/2023 12:41 Account: [id number] Inpatient Adult Discharge Instructions We would like [...] and their families. Surveys are administered by [employer] ?? If further treatment with your primary care physician or another doctor is recommended, it is important for you to keep the appointment. Call your primary care physician or return to the Emergency Department immediately if your condition worsens, fails to improve, or new symptoms develop. If you need to find a doctor, you can call [facility] [employer] for a referral at [phone] or toll free at [phone] or log in to [email or web address].. ?? You can view and manage your care through the patient portal or by using a health care juvenal of your choosing. [employer] is a website that allows you to securely view your medical information including your hospital discharge summary, office visit summaries, medications and follow-up visits. You can also request appointments, renew medications, and request access to your medical information using a health care juvenal of your choosing, or just ask a question. You can enroll at [email or web address] or register during your next office visit. You have been discharged from [facility], Patient Care Unit: SW6. If you have any questions regarding these instructions after you leave, please call us and we will be happy to assist you. [facility] Your Care Team Attending Physician Vale Stahl MD Consulting Providers Onelia WESTFALL, Magui Chowdhury MD Discharging Providers Vale Stahl MD Reason for Admission Pt coming from home with c/o R ankle injury. Pt sts that she accidentally kicked a dresser last night approx 7 hours ago. NOw with open R ankle fx. Bleeding noted to EMS dressing. .Pt is on plavix. 20g to LAC Your Diagnosis Tibia fracture Ankle fracture, right Open fracture ankle, bimalleolar Dislocation of ankle, right, open Tests Performed Below is a partial list of the tests performed during your hospitalization. You may have had other tests and procedures not included in this list. Please discuss all test results with your provider. Basic Metabolic Panel BUN Calcium Level CBC CBC w/ Differential Comprehensive Metabolic Panel COVID-19 (Novel Coronavirus), Rapid PCR Creatinine Electrolytes Hold Blue Top Tube Magnesium Level Phosphorus Level Type and Screen XR Ankle 2 Views Right XR Ankle Min 3 Views Right XR C-Arm > 1 Hour XR Tibia/Fibula 2 Views Right Primary Care Provider Wilma Reyes MD Advance Directive Health Care Proxy on File Yes - Health Care Proxy Discharge Vitals Temperature: 98.6 DegF Height: 160 cm Pulse Rate:??100 bpm??High Weight: 59 kg Respiratory Rate: 17 br/min Body Mass Index: 23.05 kg/m2 Systolic Blood Pressure: 132 mm Hg Body surface area: 1.62 Diastolic Blood Pressure:??90 mm Hg??High ?? Oxygen Saturation: 95 % ?? Studies Pending All tests and labs ordered during this hospital stay have been completed unless listed below. Please discuss all pending results with your provider listed above in these instructions. ?? B Type Natriuretic Peptide CBC What to do next Instructions From Your Doctor Continue DVT prophylaxis (heparin) for 2-3 weeks postop - Follow up at [facility]??with Dr. Rousseau in 1-2 weeks Discharge Orders You Need to Schedule the Following Appointments Follow Up with??Wilma Reyes MD Where: [address] [place] [address]- Discharge Medications MELITA SANZ :1955 Visit Date:02/02/2023 Medications: Please continue your medications until treatment is completed or stopped by your provider. Medications not listed below should be discontinued. Discuss any questions related to medications with your provider. What How Much When Instructions Next Dose New Heparin 5,000 unit(s) Subcutaneous Injection Twice a day 9 pm New Oxycodone / Acetaminophen (acetaminophen-oxycodone 300 mg-5 mg oral tablet) 1 tab(s) Oral Every 3 hours as needed for Pain , Mild Duration: 3 Days or Pain, Moderate ?? Printed Prescription Changed Lisinopril 40 Milligram Oral Daily as prescribed Changed Metoprolol (metoprolol 25 mg oral tablet, extended release) 1 tab(s) Oral Daily as prescribed Unchanged Amlodipine (amLODIPine 10 mg oral tablet) 1 tab(s) Oral Daily /2 Unchanged Atorvastatin (atorvastatin 40 mg oral tablet) 1 tab(s) Oral Daily /2 Unchanged Clopidogrel (Plavix 75 mg oral tablet) 1 tab(s) Oral Daily 7/2 Unchanged Paroxetine (Paxil 20 mg oral tablet) 1 tab(s) Oral Daily as prescribed Test Results Below is a partial list of the most recent Laboratory test results done prior to this discharge. You may have had other tests and procedures not included in this list. Please discuss all test resultswith your provider. Est Creatinine Clearance - 57.20 mL/min (02/05/2023) Basic Metabolic Panel (02/02/2023) ???Sodium - 130 mmol/L???Potassium - 4.6 mmol/L???Chloride - 100 mmol/L???Bicarbonate Level - 17 mmol/L???Anion Gap - 13???Glucose Level - 108 mg/dL???BUN - 14 mg/dL???Creatinine-Blood - 1.0 mg/dL???Estimated GFR Creatinine - 63 ML/MIN/1.73 M2???Calcium - 8.3 mg/dL BUN (02/03/2023) ???BUN - 10 mg/dL Calcium Level (02/03/2023) ???Calcium - 7.8 mg/dL CBC (02/05/2023) ???WBC - 7.0 k/mm3???RBC - 2.51 m/mm3???Hgb - 7.2 Gm/dL???Hct - 22.5 %???MCV - 89.6 femtoliters???MCH - 28.7 pg???MCHC - 32.0 g/dL???Platelet Count - 221 k/mm3???RDW-SD - 46.2 femtoliters???MPV - 9.1femtoliters???Nucleated RBC (Automated) - 0.0 #/100 WBC'S???Abs. NRBC - 0.0 k/mm3 CBC w/ Differential (02/03/2023) ???WBC - 5.3 k/mm3???RBC - 2.71 m/mm3???Hgb - 7.8 Gm/dL???Hct - 24.3 %???MCV - 89.7 femtoliters???MCH - 28.8 pg???MCHC - 32.1 g/dL???Platelet Count - 195 k/mm3???RDW-SD - 47.0 femtoliters???MPV - 8.9femtoliters???Nucleated RBC (Automated) - 0.0 #/100 WBC'S???Abs. NRBC - 0.0 k/mm3???Abs. Neut - 3.2 k/mm3???Abs. Lymph - 1.3 k/mm3???Abs. Dixon - 0.8 k/mm3???Abs. Eo - 0.1 k/mm3???Abs. Baso - 0.0 k/mm3???Neut % - 59.1 %???Lymph % - 23.4 %???Dixon % - 15.4 %???Eos % - 1.3 %???Baso % - 0.4 %???Imm Gran- 0.4 %???Abs. Imm Gran - 0.0 k/mm3 Comprehensive Metabolic Panel (02/05/2023) ???Sodium - 133 mmol/L???Potassium - 3.2 mmol/L???Chloride - 95 mmol/L???Bicarbonate Level - 26 mmol/L???Anion Gap - 12???Glucose Level - 131 mg/dL???BUN - 4 mg/dL???Creatinine-Blood - 0.8 mg/dL???Estimated GFR Creatinine - 84 ML/MIN/1.73 M2???Calcium - 8.2 mg/dL???Protein, Total - 5.5 Gm/dL???Albumin - 3.6 Gm/dL???AG Ratio - 1.9???Alkaline Phosphatase - 61 units/L???AST (SGOT) - 21 units/L???ALT(SGPT) - 17 units/L???Bilirubin, Total - 0.3 mg/dL COVID-19 (Novel Coronavirus), Rapid PCR (02/02/2023) ???COVID-19 by RT-PCR - NEGATIVE Creatinine (02/03/2023) ???Creatinine-Blood - 0.9 mg/dL???Estimated GFR Creatinine - 76 ML/MIN/1.73 M2 Electrolytes (02/03/2023) ???Sodium - 131 mmol/L???Potassium - 3.9 mmol/L???Chloride - 102 mmol/L???Bicarbonate Level - 22 mmol/L???Anion Gap - 7 Hold Blue Top Tube (02/02/2023) ???Hold Blue Top - SPECIMEN DISCARDED AFTER 4 HOURS. Magnesium Level (02/05/2023) ???Magnesium - 1.7 mg/dL Phosphorus Level (02/03/2023) ???Phosphorus - 1.9 mg/dL Type and Screen (02/02/2023) ???Blood Type - AB Positive???Antibody Screen - Negative Immunizations This Visit Given Vaccine Date tetanus/diphtheria/pertussis, acel(Tdap) 02/02/2023 Allergies (NKA means No Known Allergies) cefTRIAXone [...] Belongings I fully understand and agree that [facility] accepts no responsibility for all my personal [...] of Valuable and Belonging List: With patient Disposition of Belongings: Valuables Locked Date for Pt to Sign Valuables/Belongings: 02/02/23 21:08:00 ?? Other Discharge Information ?? Wound Assessment?? Wound Assessment?? Wound Type I: Traumatic Wound ?? Case Management Discharge Plan?? Discharge Plan?? Discharge Agency Information?? Discharge Level of Care at Discharge: care home facility Name of Agency #1: [facility] Discharge Transportation Arranged: [facility] [address] [facility] [address] [phone] Service Categories #1: Physical Therapy Mode of Transportation Arranged: Chair Van Service Comments #1: You are being discharged to [facility] for physical therapy- a chair van has been booked for your transport Discharge Arranged Transport Date/Time: 02/05/23 13:00:00 Name of Person Notified of Transfer: patient Discharge Nursing Homes/Rehab Facilities: [facility] ? Pulmonary Rehab Status?? Pulmonary Rehab Discharge Status?? Respiratory Rate: 17 br/min ? Common Emergency Awareness Tips IS [...] are strongly encouraged to quit. Please call [facility] [employer] Link at [phone] or [phone] ([phone]) or log in to [email or web address] for referrals to smoking cessation programs. ?? 248 Suicide & Crisis Lifeline is available 28/02 if you or someone you know needs to find a reason to keep living. By calling 000 you'll be connected to a skilled, trained counselor at a crisis center in your area. INPATIENT DISCHARGE INSTRUCTIONS SIGNATURE PAGE EVAMELITA HARRISON Location:[facility] Registration Date and Time:02/02/2023 13:33 EDT Primary Care Physician: Eric WESTFALL , Wilma Cornejo, Attending Physician: Favio WESTFALL, Vale Montiel, I MELITA SANZ, have received the above patient education materials/instructions and have verbalized understanding. If ambulance or transport services are being used I further acknowledge being given a choice of service. ?? If you need to contact me, please call me at this number: . Patient/Applied Biology Professor Name: Patient/Applied Biology Professor Signature: Relationship to Patient: Witness Name/Signature: Date: * Event Display: Provider Clarification Note Please click on pdf link to open report Consult note * Margarita Scott MD: PERFORM Event Display: Consultation Note Authored Date: [id number] Patient: ??MELITA SANZ ? Age:??67 Years?Sex:??Female?:??1955?? Indication for Consult atrial fibrillation with rapid ventricular response rate History of Present Illness/Interval History Ms. Sanz is a 67-year-old lady with a past medical history significant for tobacco use, hypertension, hyperlipidemia, prior breast cancer???in remission, anxiety disorder, PVD with bilateral iliac stenting several years ago, followed regularly by vascular surgery who presents after a mechanical fall with right grade 3A open trimalleolar fracture dislocation. ??Apparently, she was swinging her leg over her bed when she hit her ankle on the nightstand. ??Initially she thought nothing of it but then felt some wetness on her leg and woke up to find that there was blood all over her sheets. ??When she stood up to go to the bathroom to wash herself up, she fell to the ground. ??She initially presented to [facility] on 02/02/2023. ??She was taken for ORIF of her ankle by Dr. Sloan 02/02/2023. ??Postoperatively, she was recovering quite well and was set to be discharged to rehab yesterday however went into a sudden A-fib with RVR with heart rates in the 150s. ??She was started on metoprolol 25 3 times daily after being given an IV Lopressor bolus x1. ??Her heart rates did im prove into the low 90s to low 100s but there are occasional spikes into the 120s, presumably with movement or exertion. ??She reports that she did try to do some PT earlier today and yesterday. ??Sheis able to pivot from the bed to the bedside commode and was able to pivot from the bed diagonally to her walker a few steps. ??However, with the A-fib afterwards, she felt diaphoretic, lightheaded with racing heart sensation. ??As long as she is not rest however, she is asymptomatic. ??She denies having chest pain, significant dyspnea on exertion, PND, orthopnea. ??She has never had this sensation in the past at home. ??In fact, she tells me she was in [place] a few years ago living with [facility] after she lost her job and her benefits during COVID in [place]. ??She was diagnosed with some sort of lung mass which thankfully was benign. ??She tells me that she had a monitor placed after a handkerchief sample clerk saw her in consultation for about a week and a half and was told that there were no abnormalities at the time. ?? Otherwise a 12 point review of systems was reviewed with the patient and the chart is negative unless dictated in HPI. ?? Most recent vital signs: Temperature 98.3?F, pulse 90 bpm, blood pressure 100/72 mmHg, SPO2 97% on room air General: NAD, pleasant, cooperative HENT: AT, NC, MMM Neck: supple, no JVD CV: Irregularly irregular, no murmurs or gallops??lungs: CTAB, no accessory muscle use Abd; +BS, NTTP Ext: Right ankle is casted and immobilized, there is no left lower extremity edema, left lower extremity is warm and well-perfused Neuro: a&o x 3, grossly nonfocal Psych: mood and affect are appropriate Skin: Warm and Dry ?? Telemetry: A-fib with average heart rates in the 90s to low 100 100s currently, no significant pauses ?? EKG (02/05/2023): A-fib with rapid ventricular response rate of 138 bpm, nonspecific ST-T wave changes ?? Labs: Patient is still quite anemic with hemoglobin hematocrit 6.8 and 22, mild hyponatremia with sodium 131, normal BUN and creatinine and potassium ?? Ms. Sanz is a 67-year-old lady with a past medical history significant for peripheral vascular disease, hypertension, hyperlipidemia. ??She had an unfortunate injury of her ankle???status post ORIFrepair. ??Postoperatively, she has not unexpectedly developed atrial fibrillation initially with rapid ventricular response rate. ??We reviewed the pathophysiology, treatment strategies as they relate to atrial fibrillation. ??We specifically highlighted the differences between rate and rhythm control and also addressed increase stroke risk and need for anticoagulation based on risk factors. ??Atthis time, since she is quite symptomatic with exertion and will need to be able to participate in rehab, I would prefer rhythm control strategy with trial of synchronized cardioversion after MARTINA to rule out left atrial appendage thrombus since will have been more than 48 hours since onset of atrial fibrillation. 1. ??A-fib???I have paged the orthopedic rounder to determine if he would be okay for the patient to remain on uninterrupted anticoagulation for 4 weeks after cardioversion as this timeframe represents a high risk for thromboembolic phenomenon given atrial stunning post cardioversion???if they think this would be okay from a bleeding standpoint, we will plan for MARTINA cardioversion tomorrow; if they would prefer holding off because of bleeding risk, we will continue rate control strategy???I would favor switching her amlodipine to diltiazem???30 p.o. every 6 short acting for easier titration inaddition to current metoprolol; long-term, she does warrant anticoagulation???would favor DOAC for ease of use, preferably Xarelto or Eliquis when safe from a bleeding standpoint; baseline TTE pending 2. ??Hypertension???patient is actually on the hypotensive side and therefore if rate control was pursued as above, would favor switching amlodipine to diltiazem as above, continue current metoprolol 3. ??Hyperlipidemia/PVD???continue atorvastatin 40 at bedtime, currently not on antiplatelet agentspostoperatively given anemia but would resume Plavix when safe from a bleeding standpoint; can use this agent concurrently with Eliquis or Xarelto if necessary?? Total Time Spent I personally spent a total of??35 minutes, including both [id number] and qev-oujk-yc-face time onthe date of the encounter, addressing the above diagnoses. Allergies cefTRIAXone Home Medications Amlodipine: 10 mg = 1 tablet, By Mouth, Daily Atorvastatin: 40 mg = 1 tablet, By Mouth, Daily Clopidogrel: 75 mg = 1 tablet, By Mouth, Daily Heparin: 5,000 units = 1 mL, Subcutaneous Injection, 2 times a day Lisinopril: 40 mg, By Mouth, Daily Metoprolol: 25 mg = 1 tablet, By Mouth, Daily Oxycodone / Acetaminophen: 1 tablet, By Mouth, Every 3 hours, PRN (Pain , Mild), or Pain, Moderate Oxycodone / Acetaminophen: 1 tablet, By Mouth, Every 3 hours, PRN (Pain , Mild), or Pain, Moderate Paroxetine: 20 mg = 1 tablet, By Mouth, Daily Hospital Medications Medications (12) Active SCHEDULED: (6) Amlodipine 5 mg Tablet (amLODIPine 5 mg oral tablet) ??2.5 mg, By Mouth, Daily Atorvastatin 40 mg Tablet (atorvastatin 40 mg oral tablet) ??40 mg, By Mouth, Daily Heparin 5000 units/mL Inj (1 mL) (Heparin Inj) ??5,000 units 1 mL, Subcutaneous Injection, 2 times a day Metoprolol 25mg Tablet (metoprolol 25 mg oral tablet) ??25 mg, By Mouth, 3 times a day NaCl 0.9% Flush 3ml (NaCL 0.9% Flush) ??3 mL, IV Push, Every 8 hours Paroxetine 20 mg Tablet (Paxil 20 mg oral tablet) ??20 mg, By Mouth, Daily CONTINUOUS: (1) D5%LR (1000 mL) Cont IV 1,000 mL (D5%/LR 1,000 mL) ??1,000 mL, IV Infusion, 80 mL/hr PRN: (5) MorPHINE 2 mg Inj Syringe (MorPHINE Inj) ??5 mg, IV Push Slowly, Every 3 hours NaCl 0.9% Flush 3ml (NaCL 0.9% Flush) ??3 mL, IV Push, Every 8 hours nalOXONE ??400mcg/mL Inj (nalOXONE Inj) ??0.04 mg 0.1 mL, IV Push, Every 5 minutes Ondansetron 2mg/mL Inj (2mL Vial) (Ondansetron Inj) ??4 mg, IV Push, Every 6 hours OxyCODONE 5 mg/Acetaminophen 325 mg Tablet (Percocet-5 Tablet) ??1 tablet, By Mouth, Every 3 hours Lab Results Cardiology Labs WBC: 6.9 k/mm3 (02/06/23) RBC:??2.4 m/mm3??Low (02/06/23) Hgb:??6.8 Gm/dL??Low (02/06/23) Hct:??21.7 %??Low (02/06/23) MCV: 90.4 femtoliters (02/06/23) MCH: 28.3 pg (02/06/23) MCHC:??31.3 g/dL??Low (02/06/23) Platelet Count: 278 k/mm3 (02/06/23) RDW-SD: 46.4 femtoliters (02/06/23) Nucleated RBC (Automated): 0 #/100 WBC'S (02/06/23) Abs. Neut: 3.2 k/mm3 (02/03/23) Abs. Lymph: 1.3 k/mm3 (02/03/23) Abs. Dixon: 0.8 k/mm3 (02/03/23) Abs. Eo: 0.1 k/mm3 (02/03/23) Abs. Baso: 0 k/mm3 (02/03/23) Neut %: 59.1 % (02/03/23) Dixon %:??15.4 %??High (02/03/23) Eos %: 1.3 % (02/03/23) Baso %: 0.4 % (02/03/23) Imm Gran: 0.4 % (02/03/23) Abs. Imm Gran: 0 k/mm3 (02/03/23) Sodium:??131 mmol/L??Low (02/06/23) Potassium: 4.1 mmol/L (02/06/23) Chloride:??94 mmol/L??Low (02/06/23) Bicarbonate Level: 25 mmol/L (02/06/23) Glucose Level:??131 mg/dL??High (02/06/23) Hemoglobin A1C (Monitoring): 5.6 % (02/05/23) BUN: 10 mg/dL (02/06/23) Creatinine-Blood: 1 mg/dL (02/06/23) Calcium: 8.6 mg/dL (02/06/23) Protein, Total:??5.2 Gm/dL??Low (02/06/23) Albumin: 3.4 Gm/dL (02/06/23) Alkaline Phosphatase: 60 units/L (02/06/23) AST (SGOT): 23 units/L (02/06/23) ALT (SGPT): 20 units/L (02/06/23) Bilirubin, Total: 0.5 mg/dL (02/06/23) Diagnostic Impression ECG ECG 12-Lead * Preliminary * ?? 12:40:03 Ventricular Rate: 138 BPM Atrial Rate: 127 BPM QRS Duration: 82 ms Q-T Interval: 276 ms QTC Calculation(Bazett): 418 ms R Harrod: 63 degrees T Harrod: 74 degrees Atrial fibrillation with rapid ventricular response with premature ventricular or aberrantly conducted complexes Nonspecific ST abnormality Abnormal ECG When compared with ECG of 24-JUL-2018 15:38, Atrial fibrillation has replaced Sinus rhythm ST now depressed in Inferior leads ST now depressed in Lateral leads Nonspecific T wave abnormality now evident in Inferior leads ?? [place]: , ?? ECG 12-Lead * Preliminary * ?? 12:40:03 Please click on pdf link to open report Problem List/Past Medical History Ongoing Acute hypoxemic respiratory failure Anxiety Eczema Hypercholesterolemia Hypertension Malignant Neoplasm of Breast (Female), Unspecified Peripheral vascular disease RSV bronchitis Tobacco abuse Urinary Frequency Vaginal dysplasia Procedure/Surgical History Colonoscopy, flexible; with removal of tumor(s), polyp(s), or other lesion(s) by snare technique: 10/09/18 Endoscopy and biopsy of upper gastrointestinal tract: 10/09/18 Vulvectomy, radical, partial; lumpectomy B breast, with node removal Follow-Up Appointments Added Follow Up ?Time Frame ?Comments Eric WESTFALL , Wilma Cornejo Patient Instructions Continue DVT prophylaxis (heparin) for 2-3 weeks postop - [facility] up at [facility]??with Dr. Rousseau in 1-2 weeks Social History Alcohol Use: Current. Frequency: 1-2 times per year. Employment/School Status: Employed. Other: [employer]. Exercise Self assessment: Good condition. Regular exercise: No. Home/Environment Living situation: Home/Independent. Lives with: nephew. Nutrition/Health Diet: Regular. Substance Abuse Use: Never. Tobacco Use: patient states she is quitting. At baseline, she is ambulatory and independent. Takes 30min walks everyday normally. Lives alone and is retired. Family History Mother: Hypertension Brother: Hypertension * Rolando SAVAGE, Jackie Galaviz: MODIFY, MODIFY, MODIFY, MODIFY, MODIFY, MODIFY, MODIFY, MODIFY, MODIFY, MODIFY, MODIFY, MODIFY, MODIFY, MODIFY, PERFORM, MODIFY, MODIFY, MODIFY, MODIFY Event Display: Consultation Note Authored Date: [id number] Patient: ??MELITA SANZ ? Age:??67 Years?Sex:??Female?:??1955?? Chief Complaint/Reason for Consult Open right ankle injury ?? This consult was requested by Ritu Man NP under the supervision of Dr. Barrientos in [place] [facility] [place]. History of Present Illness Melita is a 67-year-old female who presents to [facility]for??open right ankle injury. ??She reports that she was walking near her??nightstand when she banged her ankle into it. ??She denies fall, loss of consciousness, head strike.?? This was at approximately 11??PM/12??AM.?? Reports that she laid down in bed when she felt??blood around her ankle. ??She tried to ambulate and crawl??then??realized that she was??unable to do so.?? She did not call 911 immediately after her injury as her front door was locked.?Reports that she tried to stop the bleeding by applying pressure however was unable to do so.?States that her bedroom must ??look like a murder scene .??She??waited to call her landlord early this AM, who came and unlocked her door. ??After this she called??911 and arrived in the [facility].?? Reports that last evening she socially??had??1 light beer and??marijuana. She is on Plavixdaily for PVD, last dose on 02/01. She has not had anything to eat or drink since the evening of 02/01.?? Vancomycin and Tetanus ordered by ED. Radiographs obtained in the ED demonstrated open right bimalleolar??ankle fracture and dislocation. Orthopedic surgery service was consulted for further treatment recommendations. Review of Systems Denies fever and chills. ??Denies chest pain and shortness of breath. ??Denies pain in other joints. ??All others negative as per HPI. Physical Exam Vitals & Measurements T:??98?F?? HR:??64??(Peripheral)?? RR:??14?? BP:??142/95?? SpO2:??100%?? General: Patient is evaluated laying in ED stretcher. ??She is in no acute distress.?? HEENT: Atraumatic, normocephalic Cardiac: Per ED provider Pulmonary: Per ED provider Abdomen: Per ED provider ?? Right upper extremity: Full, supple, nonpainful range of motion of shoulder, elbow, wrist and digits. ??No tenderness to palpation. ??Grossly neurovascularly intact radial, median, ulnar nerve distributions. ?? Left upper extremity: Full, supple, nonpainful range of motion of shoulder, elbow, wrist and digits. ??No tenderness to palpation. Grossly neurovascularly intact radial, median, ulnar nerve distributions. ?? Right lower extremity:??Range of motion of??hip, knee foot and ankle deferred. ??Patient is able toactively??flex and extend toes. ??No tenderness to palpation of??hip, thigh,??knee, calf, midfoot and toes.?? Palpation of ankle deferred.??Approximately 10 cm x 3.5 ovular??open wound appreciated over medial malleolus. No gross debris appreciated in wound. Mild oozing venous bleeding. No pulsatileblood or expanding hematoma noted. Ecchymosis appreciated over distal calf, extending proximally. Palpable DP pulse. Toes and midfoot are cool and dry to??touch.??Capillary refill < 3 seconds. Sensation to light touch is grossly intact. ?? Procedure:? After conscious sedation provided by the ED attending, the??right ankle was washed out at bedside with??Betadine, sterile saline, hydrogen peroxide.?The right ankle was then manipulated and reduced. Significant instability??was noted.??Once neutral alignment was obtained, a wet todry dressing??with Betadine was applied. Palpable DP pulse. Sugar-tong??with posterior??slab??splint was applied and postreduction??imaging were ordered and are pending formal radiology read at this time. ?? Patient able to wiggle her toes post reduction.??Capillary refill < 3 seconds. Large bag of ice applied to splinted RLE. ?? Left lower extremity: Full, supple, non-painful range of motion of the hip, knee, foot and ankle. ??No tenderness to palpation. ??Calf supple and nontender. Active dorsiflexion and plantar flexion strength. Palpable DP pulse. Sensation grossly intact to light touch. Assessment/Plan Impression: Type 3 open right bimalleolar ankle fracture/dislocation? Plan: Patient is admitted to the medical service.?? Orthopedics will follow. Patient's ankle was washed out at bedside and closed reduction??with splinting performed.??She was given a dose of IV antibiotics and her tetanus was updated. Patient's current NPO status to be maintained possible surgery today with Dr. Rousseau.?? Recommend strict nonweightbearing status of RLE, elevation, icing, pain control and DVT prophylaxis. Patient is added to the orthopedic trauma surgery OR add on list with planfor surgical fixation once medically optimized and when OR schedule allows.?? This was discussed with the patient who voiced understanding.?? Questions are asked and answered.? Case discussed with??Dr Barrett ?? Problem List/Past Medical History Ongoing Anxiety Eczema Hypercholesterolemia Hypertension Malignant Neoplasm of Breast (Female), Unspecified Peripheral vascular disease Urinary Frequency Vaginal dysplasia Benign lung mass s/p biopsy Procedure/Surgical History Colonoscopy, flexible; with removal of tumor(s), polyp(s), or other lesion(s) by snare technique: 10/09/18 Endoscopy and biopsy of upper gastrointestinal tract: 10/09/18 Vulvectomy, radical, partial; lumpectomy B breast, with node removal Bilateral iliac artery stenting with Dr. Jim 09/27/19 Home Medications Amlodipine: 10 mg = 1 tablet, By Mouth, Daily Atorvastatin: 40 mg = 1 tablet, By Mouth, Daily Clopidogrel: 75 mg = 1 tablet, By Mouth, Daily Lisinopril: By Mouth, Daily Allergies Ceftriaxone [rash] Social History She ambulates independently at baseline. She lives independently. She does not have stairs at home.She is retired. She drinks alcohol socially. She is a??former smoker, quit 2 years ago.?? Reports occasional marijuana use. She denies illicit drug use including heroin, cocaine and opiates. Family History Denies history of DVT,??bleeding dyscrasias and??adverse reaction to anesthesia. Radiology 3 view radiographs of the right ankle reviewed by myself demonstrate a oblique??Mills??B fibular fracture and open??lateral dislocation of the the tibiotalar joint. Additionally appreciate medial malleolus fracture. ?? 2 view radiographs of the right tib-fib reviewed??by myself again demonstrate Mills B fibular fracture and open??lateral dislocation of the tibiotalar joint. No additional fractures or dislocations appreciated. ?? Three-view postreduction radiographs of the right ankle reviewed by myself demonstrate??significant??improvement in??alignment??with slight persistent displacement of??medial malleolus and Mills Bfibular fracture.??Reduction of tibiotalar dislocation is appreciated. Talus with lateral shift andmortise is not congruent.?? Lab Results Labs Last 24 Hours BLOOD COUNT & DIFF ? Event Name?? Event Result?? Date/Time?? WBC 7.6 k/mm3 02/02/23 10:43:00 RBC 3.71 m/mm3??Low 02/02/23 10:43:00 Hgb 10.7 Gm/dL??Low 02/02/23 10:43:00 Hct 32.7 %??Low 02/02/23 10:43:00 MCV 88.1 femtoliters 02/02/23 10:43:00 MCH 28.8 pg 02/02/23 10:43:00 MCHC 32.7 g/dL??Low 02/02/23 10:43:00 Platelet Count 260 k/mm3 02/02/23 10:43:00 MPV 8.8 femtoliters??Low 02/02/23 10:43:00 Nucleated RBC (Automated) 0 #/100 WBC'S 02/02/23 10:43:00 ? CHEM GENERAL ? Event Name?? Event Result?? Date/Time?? Sodium 130 mmol/L??Low 02/02/23 10:43:00 Chloride 100 mmol/L 02/02/23 10:43:00 Bicarbonate Level 17 mmol/L??Low 02/02/23 10:43:00 Anion Gap 13 02/02/23 10:43:00 Glucose Level 108 mg/dL??High 02/02/23 10:43:00 BUN 14 mg/dL 02/02/23 10:43:00 Creatinine-Blood 1 mg/dL 02/02/23 10:43:00 ? Patient Care team information Care Team Personnel Name: Dian Love RN Position: [facility] RN Member Role: Primary Care Nurse Name: Eric WESTFALL , Wilma Cornejo Position: Reference Physician Member Role: PCP Address: Address: [address] [place] [address]- Name: Chris Maynard NP Position: [facility] Outreach Member Role: Primary Care Nurse Address: Address: [address] [place] [address] [address] [place] [address]- Name: Samantha Anderson RN Position: [facility] RN Member Role: Primary Care Nurse Name: Mary Rivera RN Position: [facility] RN Member Role: Primary Care Nurse Name: Tesha Kincaid RN Position: [facility] RN Member Role: Primary Care Nurse Name: Cecelia Mazariegos RN Position: [facility] RN Member Role: Primary Care Nurse Name: Jacqueline Hayden RN Position: [facility] RN Member Role: Primary Care Nurse Name: Mj RASMUSSEN Attending Position: [facility] ED Medicine MD Name: Alejandro Baxter Position: [facility] ED TA [facility] Member Role: Patient Care Provider Care Team Related Persons Name: EVACHRISTY CORRIE Address: [address] [place] [address] Name: JO SANZ Name: JESSICA SANZ Address: home [address] [place] [address]
--- OUTSIDE RECORDS SUMMARY | 2023-09-27 20:15 | XMS_ITS | Continuity of Care Document ---
Author Name Unknown Organization [facility] ter Address [address] [place] [address]- Care Team Providers Care State Manager Name Role Phone Sindy WESTFALL, Omar Gutierrez Primary Care Physician En[place] [facility] [place] Date(s): 09/27/19 - 09/27/[address] [address]- [facility] Discharge Disposition: A-D/C Home Attending Physician: Nicho Winkler MD Admitting Physician: [...] 08/20/19 16:10:00 EST, Route to Pharmacy Electronically, [facility] #[id number], 158, cm, 08/20/19 10:16:00 EST, Height, 53.6, [...] 6 Refills, Maintenance, 08/21/19 9:13:00 EST, Tablet, [facility] #[id number], 158, cm, 08/20/19 10:16:00 EST, Height, 53.6, kg, 07/25/18 1:05:00 EST, Dry Weight Start Date: 08/21/19 Stop Date: 03/18/20 Status: Ordered PARoxetine 40 mg oral tablet 40 mg, 1, tablet, By Mouth, Daily, Please make appt with Dr. Callahan, # 90 tablet, Refills 1, Tot. Refills 1, Maintenance, 07/17/19 7:10:43 EST, Route to Pharmacy Electronically, [id number], [facility], 158, cm, 0... Start Date: 07/17/19 Status: Ordered Plavix 75 mg oral tablet 75 mg, 1, tablet, By Mouth, Daily, # 30 tablet, Refills 11, Tot. Refills 11, Maintenance, 09/28/19 8:00:00 EST, Route to Pharmacy Electronically, [facility] #[id number], 158, cm, 09/27/19 10:13:00 EST, Height, 53.6, [...] oldest [Reference Range]: 1 2 3 Height 158 cm (09/27/19 10:13 AM) Weight 54.7 kg (09/27/19 10:13 AM) Oxygen Saturation [94-100 %] 93 % *L* (09/27/19 3:00 PM) 97 % (09/27/19 2:30 PM) 98 % (09/27/19 2:00 PM) Blood Pressure [90-138/55-84 mm Hg] 123/65mm Hg (09/27/19 3:00 PM) 115/66mm Hg (09/27/19 2:30 PM) 123/71mm Hg (09/27/19 2:00 PM) Respiratory Rate [16-30 br/min] 21 br/min (09/27/19 3:00 PM) 18 br/min (09/27/19 2:30 PM) 20 br/min (09/27/19 2:00 PM) Temperature [96.8-100.4 DegF] 98.8 DegF (09/27/19 1:00 PM) 97.7 DegF (09/27/19 10:00 AM) Mode of Delivery (Oxygen) Room air (09/27/19 3:00 PM) Room air (09/27/19 2:30 PM) Room air (09/27/19 2:00 PM) Blood pressure sites Arm, left (09/27/19 3:00 PM) Arm, left (09/27/19 2:30 PM) Arm, left (09/27/19 2:00 PM) Social History Social History Type Response Smoking Status Former smoker, quit more than 30 days ago entered on: 08/07/18 Sex
--- OUTSIDE RECORDS SUMMARY | 2023-09-27 20:15 | XMS_ITS | Continuity of Care Document ---
Author Name Unknown Organization [facility] Address [address] [place] [address]- Care Team Providers Care Fire Watcher Name Role Phone Eric WESTFALL, Wilma Cornejo Primary Care Physician Encounter [facility] [place] Date(s): 12/17/22 - 01/16/23 [facility] [address] [place], [place] [address] Attending Physician: Sharon Tierney Admitting Physician: Sharon Tierney Referring Physician: AdmtrSharon Allergies, Adverse Reactions, Alerts No Known Allergies [...] 09/08/20 10:55:00 EST, Route to Pharmacy Electronically, [facility] #[id number], 158, cm, 09/08/20 10:17:00 EST, Height Start Date: 09/08/20 Status: Ordered atorvastatin 40 mg oral tablet 1 tablet = 40 mg, By Mouth, Daily, # 30 tablet, 11 Refills, Maintenance, 09/08/20 10:57:00 EST, Tablet, [facility] #[id number], 158, cm, 09/08/20 10:17:00 EST, Height Start [...] 08/30/22 12:06:00 EST, Route to Pharmacy Electronically, [facility]/pharmacy #[id number], 158, cm, 06/11/22 9:39:00 [...] Use: patient states she is quitting. Sex Patient Care team information Care Team Personnel Name: Dian Love RN Position: S RN Member Role: Primary Care Nurse Name: Eric WESTFALL , Wilma Cornejo Position: Reference Physician Member Role: PCP Address: Address: [address] [place] [address]- Name: Chris Maynard NP Position: [facility] Outreach Member Role: Primary Care Nurse Address: Address: [address] [place] [address] [address] [place] [address]- [place] Name: Samantha Anderson RN Position: S RN Member Role: Primary Care Nurse Care Team Related Persons Name: CORRIE ROBISON Address: [address] [place] [address] Name: JO ROBISON Name: JESSICA ROBISON Address: [address] [place] [address]
--- OUTSIDE RECORDS SUMMARY | 2023-09-27 20:15 | XMS_ITS | Continuity of Care Document ---
Author Name Unknown Organization [facility] Address [address] [place] [address]- Care Team Providers Care Poultry Dresser Name Role Phone Eric WESTFALL, Wilma Cornejo Primary Care Physician Encounter [facility] [place] Date(s): 12/17/22 - 12/24/22 [facility] [address] [place], [place] [address] Attending Physician: Nicho Winkler MD Admitting Physician: [...] 09/08/20 10:55:00 EST, Route to Pharmacy Electronically, [facility] #[id number], 158, cm, 09/08/20 10:17:00 EST, Height Start Date: 09/08/20 Status: Ordered atorvastatin 40 mg oral tablet 1 tablet = 40 mg, By Mouth, Daily, # 30 tablet, 11 Refills, Maintenance, 09/08/20 10:57:00 EST, Tablet, [facility] #[id number], 158, cm, 09/08/20 10:17:00 EST, Height Start [...] 08/30/22 12:06:00 EST, Route to Pharmacy Electronically, [facility]/pharmacy #[id number], 158, cm, 06/11/22 9:39:00 EDT, Height [...] states she is quitting. Sex Note * Janett Patel: PERFORM, SIGN, VERIFY Event Display: Patient Education/Instruction Authored Date: [id number] [facility] *[facility] [address] Clinical Summary Name CARMELO ROBISON Age 66 Years 1955 PCP Eric WESTFALL , Wilma Cornejo PCP Visit Date 12/17/2022 07:10:00 Additional Instructions: Scheduled Appointments?? Future Appointments ?No [...] tab(s) Oral Daily. Refills: 3. Next Dose: Lisinopril Oral Daily. Next Dose: Allergy Info:?? NKA Medications Given This Visit Future Orders ?No future orders Vital Signs Height Weight BMI Blood Pressure / Temperature Pulse Rate Respiratory Rate 02 Sat Mode of Delivery / You can now view a summary of your hospital visit from the comfort of your home through a free online portal called [employer]. [employer] is a website that allows you to securely view your medical information including discharge summary, medications and follow-up visits. ??You can alsosend a secure electronic message to your doctor???s office to request appointments, renew medications or just ask a question. You can enroll at [email or web address] or register during your next office [...] primary care provider, you may find a [facility] provider by calling [facility] at [phone]. For information about the plan of care including goals and instructions for your diagnosis, please see the patient education orders section of this document. Patient Education Materials?? The content of this educational material or handout may have been modified, supplemented, or adapted from its original content and format to support your individualized medical care. Patient Care team information Care Team Personnel Name: Cam Johnston RN, Dian Position: [facility] RN Member Role: Primary Care Nurse Name: Eric WESTFALL , Wilma Cornejo Position: Reference Physician Member Role: PCP Address: Address: [address] [place] [address]- Name: Aleyda ZAZUETA, Chris Laboy Position: [facility] Outreach Member Role: Primary Care Nurse Address: Address: [facility] [address] [facility] [address] [place] [address]- Name: Justin MONSALVE, Samantha Position: [facility] RN Member Role: Primary Care Nurse Care Team Related Persons Name: CORRIE ROBISON Address: [address] [address] Name: JO ROBISON Name: JESSICA ROBISON Address: [address] [address]
--- OUTSIDE RECORDS SUMMARY | 2023-09-27 20:15 | XMS_ITS | Continuity of Care Document ---
Author Name Unknown Organization [facility] Address [address] [place] [address]- Care Team Providers Care Shuttle Spotter Name Role Phone Eric WESTFALL, Wilma Cornejo Primary Care Physician Encounter [facility] [place] Date(s): 08/26/22 - 09/25/22 [facility] [address] [place], [place] [address] Allergies, Adverse Reactions, Alerts No Known Allergies [...] 09/08/20 10:55:00 EST, Route to Pharmacy Electronically, [facility] #[id number], 158, cm, 09/08/20 10:17:00 EST, Height Start Date: 09/08/20 Status: Ordered atorvastatin 40 mg oral tablet 1 tablet = 40 mg, By Mouth, Daily, # 30 tablet, 11 Refills, Maintenance, 09/08/20 10:57:00 EST, Tablet, [facility] #[id number], 158, cm, 09/08/20 10:17:00 EST, Height Start [...] 08/30/22 12:06:00 EST, Route to Pharmacy Electronically, [facility]/pharmacy #[id number], 158, cm, 06/11/22 9:39:00 EDT, Height [...] Team Personnel Name: Dian Love RN Position: [facility] RN Member Role: Primary Care Nurse Name: Eric WESTFALL , Wilma Cornejo Position: Reference Physician Member Role: PCP Address: Address: [address] [place] [address]- Name: Chris Maynard NP Position: [facility] Outreach Member Role: Primary Care Nurse Address: Address: [facility] [address] [facility] [address] [place] [address]- [place] Name: Samantha Anderson RN Position: [facility] RN Member Role: Primary Care Nurse Care Team Related Persons Name: CORRIE ROBISON Address: [address] [place] [address] Name: JO ROBISON Name: JESSICA ROBISON Address: [address] [place] [address]
[2023-09-27 20:47] LABS: OBS Int Ctl Valid YES; OBS1 POSITIVE (NEGATIVE)
[2023-09-27] MEDS: Pantoprazole Sodium 40 MG/10 ML VIAL 80 MG IVPUSH (21:25)
[2023-09-27] MEDS: traMADoL HCL 50 MG TABLET PO (21:26)
[2023-09-27] MEDS: Octreotide Acetate 500 MCG in 0.9 % Sodium Chloride 500 ML 50.1 MCG IVCONT (21:26)
[2023-09-27] MEDS: Octreotide Acetate 100 MCG/ML AMPUL 50 MCG IVPUSH (21:27)
--- NOTE | 2023-09-27 21:45 | PHA.MEDREC ---
Pharmacy Consult ? Medication Reconciliation Pharmacy has completed the medication reconciliation. Confirmed medication with patient, claim history, and list of discharge medications from [facility] (09/07/2023)
[2023-09-27 22:53] VITALS: BP 128/79; PULSE 87; RESP 16; TEMP 36.4
[2023-09-27 22:59] VITALS: BP 119/94; PULSE 93; RESP 15; TEMP 36.4
[2023-09-27] MEDS: Hum Prothrombin Cplx(PCC)4Fact 2,000 UNIT in Container,Empty 0 ML 480 UNIT IV (23:12)
[2023-09-27 23:28] LABS: Fibrinogen 422 MG/DL (259-690)
[2023-09-27 23:31] LABS: D Dimer High Sensitivity < 150 NG/ML
[2023-09-27] MEDS: 0.9 % Sodium Chloride Flush 3 ML SYRINGE IVFLUSH (23:55)
[2023-09-28] VITALS (9 sets, daily range): BP systolic 125–160; BP diastolic 65–96; PULSE 99–129; RESP 14–18; TEMP 36.1–36.9; O2SAT 98–100; BMI 23.0
--- NOTE | 2023-09-28 00:15 | P.HPHOSP_ITS ---
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 She also reported bloody vomiting, occasional episodes of blood in urine as well as occasional vaginal bleeding. Patient also reports associated lightheaded and confusion. Did not report loss of consciousness. She denied any abdominal pain but occasional discomfort in her pelvic area. Patient denied chest pain. She does have shortness of breath with exertion. She state that she does not drink alcohol since July. She did not report illicit drug use. According to her home medication list patient has been taking Eliquis and Plavix. However, according to cardiology consult note earlier this year patient was recommended to stop taking aspirin and Plavix and only takes Eliquis. In the ED, she was found to have tachycardia consistent with rapid AFib. Blood pressure has been normal. Blood workup is remarkable for hemoglobin 6.2 and hematocrit of 20.3. MCV is low. Platelets are 410. CBC differential showed target SIRS, macrocytosis and schistocytes, INR is 4.2. D-dimer is less than 150 and fibrinogen is normal. Stool for occult. Transaminases and alk-phos are elevated. Bilirubin is normal UA showed no hematuria or evidence of UTI. ED tx: Two units PRBC, morphine 15 mg p.o., potassium chloride 40 mEq p.o. and Protonix 80 mg IV, Kcentra and octreotide mcg. Review of Systems 2 Review of Systems: All 12 systems were reviewed and normal except as noted in HPI. [facility]LY [facility] Medical History Hypochromic anemia Atrial fibrillation status post cardioversion Personal history of long-term (current) use of anticoagulants Unspecified atrial fibrillation Trimalleolar fracture of right ankle Cervical cancer screening History of eczema Eczema History of PFTs Mass of left lung Generalized anxiety disorder PAD (peripheral artery disease) Hx of malignant neoplasm of breast History of vaginal dysplasia Dyslipidemia Essential hypertension Family History Mother Substance use disorder Mental health disorder Brother Essential hypertension Surgical History Status post ORIF of fracture of ankle S/P breast lumpectomy H/O vulvectomy Hx of colonoscopy Social History Housing: Apartment Alcohol intake: former Patient Tobacco Use Status: Former Tobacco user Smoked in Last 30 Days: No e-Cigarette/Vaping Use: Never Used Use of substances other than those prescribed or required for medical reasons: No Advance Directives: Yes Advance Directives on File: Yes Advance Directives Date on File: 03/04/23 Current occupational status: retired Cognitive needs: No Hearing needs: No Vision needs: Yes Meds Allergies Allergy/AdvReac Type Severity Reaction Status Date / Time ceftriaxone AdvReac rash Verified 08/17/23 14:48 Active Medications: Current Medications Octreotide Acetate 500 mcg/ (Sodium Chloride) 501 mls @ 50.1 mls/hr IVCONT .Q10H [facility] Last Admin: 09/27/23 21:26 Dose: 50 mcg/hr, 50.1 mls/hr Sodium Chloride (Ns) 1,000 mls @ 100 mls/hr IVCONT .Q10H [facility] Pantoprazole Sodium (Pantoprazole Sodium 40 Mg/10 Ml Vial) 40 mg IVPUSH BID@0630,1630 [facility] Sodium Chloride (0.9 % Sodium Chloride Flush 3 Ml Syringe) 3 ml IVFLUSH QSHIFT [facility]ANG Home Medications Medication Instructions Recorded Confirmed Last Taken Type clopidogrel 75 mg tablet 75 mg PO DAILY 04/30/22 09/27/23 09/27/23 History apixaban 5 mg tablet (Eliquis) 5 mg PO BID 09/27/23 09/27/23 09/26/23 History furosemide 20 mg tablet 20 mg PO DAILY 09/27/23 09/27/23 09/27/23 History metoprolol succinate 50 mg 50 mg PO DAILY 09/27/23 09/27/23 09/27/23 History tablet,extended release 24 hr Physical Exam 2 Vital Signs and Narrative: Vital Signs: Last Vital Signs Temp 97.6 F 09/27/23 22:59 Pulse 93 09/27/23 22:59 Resp 15 09/27/23 22:59 BP 119/94 H 09/27/23 22:59 O2 Del Method Room Air 09/27/23 18:14 BMI result Body Mass Index 17.1 Results Labs 09/27/23 19:12 09/27/23 19:12 Labs: Laboratory Results - last 24 hr 09/27/23 09/27/23 09/27/23 19:12 19:48 20:43 MCV 71.7 L MCH 21.9 L MCHC 30.5 L RDW 17.8 H Plt Count 410 H D MPV 9.4 Immature Gran % (Auto) Cancelled Neut % (Auto) Cancelled Lymph % (Auto) Cancelled [place] % (Auto) Cancelled Eos % (Auto) Cancelled Baso % (Auto) Cancelled Lymph # (Auto) Cancelled [place] # (Auto) Cancelled Eos # (Auto) Cancelled Baso # (Auto) Cancelled Abs Immat Gran (auto) Cancelled Absolute Neuts (auto) Cancelled Absolute Nucleated RBC 0.080 H Nucleated RBC % (auto) 1.2 H Neutrophils % (Manual) 76 H Band Neutrophils % 0 L Lymphocytes % (Manual) 20 Monocytes % (Manual) 3 Eosinophils % (Manual) 1 Abs Neuts (Manual) 5.2 Lymphocytes # (Manual) 1.4 Monocytes # (Manual) 0.2 Eosinophils # (Manual) 0.1 Smudge Cells PRESENT Platelet Estimate NORMAL Large Platelets PRESENT Plt Morphology Comment NOTED RBC Morphology NOTED Polychromasia 1+ (0-2) Hypochromasia 3+ (>30) Microcytosis 2+ (15-30) Macrocytosis 1+ (5-14) Spherocytes 1+ (0-2) Target Cells 1+ (5-14) Ovalocytes 1+ (5-14) Schistocytes 3+ (>5) PT 51.5 H INR 4.2 H APTT 34.1 Fibrinogen 422 D-Dimer High Sensitivty < 150 Anion Gap 18 Estim Creat Clear Calc 40.3 Estimated GFR 59 Random Glucose 114 Calcium 9.3 D Total Bilirubin 0.8 AST 652 H ALT 880 H Alkaline Phosphatase 136 H Total Protein 6.4 L Albumin 3.7 Urine Color Yellow Urine Appearance Clear Urine pH 7.0 Ur Specific [place] 1.010 Urine Protein Negative Urine Glucose (UA) Negative Urine Ketones Negative Urine Blood Negative Urine Nitrite Negative Ur Leukocyte Esterase Negative Stool Occult Blood POSITIVE Blood Type AB Positive Antibody Screen NEGATIVE Crossmatch See Detail Imaging Radiologist's Impressions: Impressions Head CT 09/27/23 19:54 IMPRESSION: 1. No evidence of acute intracranial hemorrhage or edematous territorial infarction. 2. 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 3. Mild underlying microangiopathy and generalized cerebral volume loss. Abdomen Ultrasound 09/27/23 21:52 IMPRESSION: No acute intra-abdominal process seen. Atrophic right kidney. Assessment and Plan (1) Elevated LFTs: Status: Acute (2) Acute GI bleeding: Status: Acute (3) Rapid atrial fibrillation: Status: Acute (4) Essential hypertension: Status: Acute (5) Dyslipidemia: Status: Acute (6) Anemia: Qualifiers: Anemia type: unspecified type Qualified Code(s): D64.9 - Anemia, unspecified Status: Acute (7) Acute hypokalemia: Status: Acute Plan Melita Sanz is a 67 years old woman with left lung mass status post thoracostomy and left upper lobectomy in 2021 admitted with: * Acute blood loss anemia secondary to gastrointestinal bleeding. Admit to hospitalist service. Keep NPO. Hold Eliquis and Plavix. Continue Protonix 40 mg IV twice daily and octreotide infusion. GI consult. Two units of PRBCs given in ED. Continue to monitor H&H. * Elevated INR and elevated LFTs (normal biliribin). Etiology unclear. Related to Eliquis use? Liver failure? Statin-induced. DIC workup: Normal fibrinogen and D-dimer + platelets are normal. Patient denies recent Tylenol use. Hold statin Abdominal ultrasound showed normal liver. Patient received treatment with Kcentra. Continue to monitor INR and LFTs. Check hepatitis profile. * Rapid atrial fibrillation likely secondary to acute bleeding. PRBC transfusions and IV fluids for now. Continue metoprolol. * Hyperlipidemia. Statin on hold due to elevated transaminases. * Chronic obstructive pulmonary disease. No symptoms. * History of right ankle fracture s/p ORIF. * Iliac artery stenting treated with Plavix and statin. DVT prophylaxis: SCDs only due to acute GI bleeding Code status: Full Patient will need hospitalization for at least 2 midnight for GI bleeding treatment and evaluation with PRBC transfusion + consultation with GI service. Quality Stroke Does the patient have a stroke diagnosis?: No VTE Prior VTE?: No VTE Risk Level:: Medical - moderate - high VTE Device Contraindication: N/A - Device Ordered VTE Drug Contraindication: Treatment Not Indicated
--- NOTE | 2023-09-28 03:04 | PC.NURSE ---
Second bag of RBCs infusing , pt tolerating well, VS stable, no complaints @ this time. Awaiting bed assignment
[2023-09-28 06:44] LABS: INTERNATIONAL NORM RATIO 2.5 (0.9-1.1); Prothrombin Time 30.4 SEC (11.1-13.3)
[2023-09-28 06:55] LABS: Ammonia 50 umol/L (13-55); Hematocrit 27.3 % (37.0-47.0); Hemoglobin 8.7 g/dl (12.0-16.0); Immature Retic Fraction 32.1 % (3.0-15.9); Mean Corpuscular HGB Conc 31.9 g/dl (31.0-35.0); Mean Corpuscular Hemoglobin 24.2 pg (27.0-33.0); Mean Corpuscular Volume 75.8 fL (80.0-98.0); Mean Platelet Volume 9.7 fL (9.4-12.3); NRBC Pct Auto 0.9 /100WBC (0.0-0.2); Platelet Count 322 X10*3/uL (160-400); Retic HGB Equivalent 19.6 pg (30.0-35.0); Reticulocyte Percent 2.1 % (0.5-1.8); Reticulocytes Absolute 0.077 X10*6/uL (0.026-0.095); White Blood Count 8.1 X10*3/uL (4.8-10.8)
[2023-09-28 06:58] LABS: Acetaminophen LAB < 3 mcg/mL (<30); Alanine Aminotransferase 1018 U/L (0-31); Albumin Level 3.4 g/dL (3.5-5.0); Alkaline Phosphatase 121 U/L (39-117); Anion Gap 18 (12-20); Aspartate Amino Transferase 912 U/L (5-31); Bilirubin Total 2.4 mg/dL (0.0-1.0); Blood Urea Nitrogen 25 mg/dL (9-16); Calcium 8.7 mg/dL (8.4-10.2); Carbon Dioxide 24 mmol/L (22-29); Chloride 97 mmol/L (96-108); Creatinine Clr Calc Pharmacy 32.2; Estimated Glomerular Filt Rate 45; Glucose Random 118 mg/dL (60-115); Potassium 3.5 mmol/L (3.3-5.1); Salicylate < 5.0 mg/dL (15-30); Sodium 135 mmol/L (135-145); Total Protein 5.7 g/dL (6.5-8.0)
[2023-09-28 07:16] LABS: HBS Num1 1.65 mIU/mL (0-7.99); HBc Num1 6.37 S/CO (0.00-0.79); HBsAGNum1 0.33 S/CO (0.00-0.99); Hepatitis A Antibody IgM 0.15 Index (0-0.79); Hepatitis B Surface Antigen Negative (Negative); ~HepC Num1 0.07 S/CO (0.00-0.79); ~Hepatitis A Antibody IgM Nonreactive (Nonreactive); ~Hepatitis B Surface Antibody NONREACTIVE (Nonreactive); ~Hepatitis C Antibody Nonreactive (Nonreactive)
--- NOTE | 2023-09-28 08:17 | PM.GICN ---
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 Patient denied chest pain. She does have shortness of breath with exertion. No reported loss of consciousness. She is on eliquis and plavix for a -fib and stents in past. She denies alcohol use and says not been taking any nsaid since been on eliquis (started after admission to [facility] 1-2 months ago for ankle # and infection and was dx with a-fib) She did receive PRBC 2 units and Kcentra and feels much better with no further bleeding noted LABS: hemoglobin 6.2 and hematocrit of 20.3. MCV is low. Platelets are 410. macrocytosis and schistocytes, INR is 4.2. D-dimer is less than 150 and fibrinogen is normal. Stool for occult. Transaminases and alk-phos are elevated. Bilirubin is normal UA showed no hematuria or evidence of UTI. (Last HGB 09/08/23 --9.2 at [facility]< mild LFT disturbance) Her last EGd, colo about 5 yrs ago and were nml per her report but r/v of [facility] remote records--tubular adenoma removed and barretts noted. Review of Systems Review of Systems: Constitutional : No Weight loss, No Fever, No Chills ENT/Mouth : No sore throat, No Rhinorrhea Eyes: No Swelling, No Redness Cardiovascular : No Chest Pain, No SOB, No Edema Respiratory : No Cough, No Sputum, No Wheezing Gastrointestinal : see HPI Genitourinary : NO Dysuria, No Urinary Frequency, No Hematuria, No Urgency Musculoskeletal : No joint pain, No Myalgias, No Joint Swelling Skin : No Skin Lesions, No rash Neuro : No Weakness, No Numbness, No Dizziness, No Headache Psych : No Anxiety/Panic, No Depression Heme/Lymph: No Bruising, No Lymphadenopathy Endocrine : No Polyuria, No Polydipsia All other systems reviewed and are negative. FOR[facility]LY [facility] Past Medical History Medical History Hypochromic anemia Atrial fibrillation status post cardioversion Personal history of long-term (current) use of anticoagulants Unspecified atrial fibrillation Trimalleolar fracture of right ankle Cervical cancer screening History of eczema Eczema History of PFTs Mass of left lung Generalized anxiety disorder PAD (peripheral artery disease) Hx of malignant neoplasm of breast History of vaginal dysplasia Dyslipidemia Essential hypertension Family History Family History Mother Substance use disorder Mental health disorder Brother Essential hypertension Surgical History Surgical History Status post ORIF of fracture of ankle S/P breast lumpectomy H/O vulvectomy Hx of colonoscopy Social History Social History Household Members: None Housing: Apartment Do you presently have visiting nurse or other home services: No Alcohol intake: former Patient Tobacco Use Status: Former Tobacco user Quit Date: 3 years ago Tobacco use type: Cigarette Cigarette Packs Per Day: 1 Cigarettes Per Day: 20.0 Years Smoked: 25 e-Cigarette/Vaping Use: Never Used Substance Use Type: Marijuana Advance Directives Date on File: 03/04/23 service: No Current occupational status: retired Cognitive needs: No Hearing needs: No Vision needs: Yes Meds Allergies Allergy/AdvReac Type Severity Reaction Status Date / Time ceftriaxone AdvReac rash Verified 08/17/23 14:48 Active Medications: Current Medications Octreotide Acetate 500 mcg/ (Sodium Chloride) 501 mls @ 50.1 mls/hr IVCONT .Q10H [facility] Last Admin: 09/27/23 21:26 Dose: 50 mcg/hr, 50.1 mls/hr Sodium Chloride (Ns) 1,000 mls @ 100 mls/hr IVCONT .Q10H [facility] Last Admin: 09/28/23 05:25 Dose: Not Given Pantoprazole Sodium (Pantoprazole Sodium 40 Mg/10 Ml Vial) 40 mg IVPUSH BID@0630,1630 [facility] Sodium Chloride (0.9 % Sodium Chloride Flush 3 Ml Syringe) 3 ml IVFLUSH QSHIFT [facility] Last Admin: 09/28/23 07:16 Dose: Not Given Home Medications Medication Instructions Recorded Confirmed Last Taken Type clopidogrel 75 mg tablet 75 mg PO DAILY 04/30/22 09/27/23 09/27/23 History apixaban 5 mg tablet (Eliquis) 5 mg PO BID 09/27/23 09/27/23 09/26/23 History furosemide 20 mg tablet 20 mg PO DAILY 09/27/23 09/27/23 09/27/23 History metoprolol succinate 50 mg 50 mg PO DAILY 09/27/23 09/27/23 09/27/23 History tablet,extended release 24 hr Physical Exam Vital Signs: Vital Signs: Last Vital Signs Temp 98.5 F 09/28/23 06:16 Pulse 110 H 09/28/23 06:16 Resp 16 09/28/23 06:16 BP 144/90 H 09/28/23 06:16 Pulse Ox 99 09/28/23 02:22 O2 Del Method Room Air 09/28/23 02:22 BMI result Body Mass Index 17.1 EXAM: GENERAL: The patient is well developed and nontoxic. VITAL SIGNS:see workflow HEENT: Nonicteric sclerae, PERRLA, EOMI. Oropharynx clear. Moist mucous membranes. Conjunctivae appear well perfused. No thyroid mass. CHEST: Chest wall is nontender. HEART: Regular rate and rhythm without murmurs. LUNGS: Clear to auscultation bilaterally. ABDOMEN: Soft, positive bowel sounds, nontender, no organomegaly, no flank tenderness SKIN: No rash, no excessive bruising, petechiae, or purpura. NEUROLOGIC: Cranial nerves II-XII intact without motor/sensory deficit. Results Labs 09/29/23 05:12 09/29/23 05:12 Labs: Short CBC 09/27/23 09/28/23 Range/Units 19:12 06:27 WBC 6.8 8.1 (4.8-10.8) X10*3/uL Hgb 6.2 L* D 8.7 L D (12.0-16.0) g/dl Hct 20.3 L* D 27.3 L D (37.0-47.0) % Plt Count 410 H D 322 (160-400) X10*3/uL BMP 09/27/23 09/28/23 19:12 06:27 Sodium 136 135 Potassium 2.9 L* 3.5 D Chloride 94 L 97 Carbon Dioxide 27 24 BUN 20 H 25 H Creatinine 0.95 1.19 Calcium 9.3 D 8.7 D Liver Function 09/27/23 09/28/23 Range/Units 19:12 06:27 Total Bilirubin 0.8 2.4 H (0.0-1.0) mg/dL AST 652 H 912 H (5-31) U/L ALT 880 H 1018 H (0-31) U/L Alkaline Phosphatase 136 H 121 H (39-117) U/L Albumin 3.7 3.4 L (3.5-5.0) g/dL Urine 09/27/23 Range/Units 19:48 Urine Color Yellow Urine Appearance Clear Urine pH 7.0 (5.0-9.0) Ur Specific [place] 1.010 (1.005-1.025) Urine Protein Negative (Neg-Trace) mg/dL Urine Glucose (UA) Negative (Negative) mg/dL Assessment and Plan (1) Elevated LFTs: Status: Acute (2) Acute GI bleeding: Status: Acute Plan 1/ Subacute blood loss symptomatic anemia, 2/2 possibe overcoagulation with plavix and eliquis, also had received ABx for ankle infection about 3 weeks ago or so. ddx: PUD, dieulafoy, AVM, neoplasia 2/ Hepatopathy, possiblly related to ischemic hepatopathy--viral hep A, C levels and acetaminophen neg, less likely dili PLAN: /1 - trend hgb, transfuse for hgb 8-9 g/dl 2/ PPI as doing 3/ hold anticoagulants 4/ check LDH and Ck levels 5/ plan for egd and colonoscopy ofr further evaluation Procedures Date of Service Date of Service: 09/29/23
[2023-09-28] MEDS: Pantoprazole Sodium 40 MG/10 ML VIAL IVPUSH ×2 (08:33→15:33)
[2023-09-28 08:45] LABS: HBc Num2 6.81 S/CO; HBc Num3 6.52 S/CO; Hepatitis B Core Antibody Reactive (Nonreactive)
--- NOTE | 2023-09-28 09:09 | PC.NURSE ---
assumed care of pt at 0700. pt s&o x4, pleasant, calm, and cooperative. IV to right AC bleeding, t/w cleaned it up and changed dressing. pt denies pain, requesting ice chips, is NPO. pt given ice chips overnight. pt resting quietly on stretcher, has bed but awaiting admission report and transport. rr even/unlabored. call scott within reach. plan of care ongoing.
[2023-09-28] MEDS: Octreotide Acetate 500 MCG in 0.9 % Sodium Chloride 500 ML 50.1 MCG IVCONT ×2 (09:56→17:21)
--- NOTE | 2023-09-28 09:59 | PC.NURSE ---
pt bent arm and dislodged 20G IV that was in RAC.
--- NOTE | 2023-09-28 12:23 | MHC.CM.PN ---
IMM DELIVERED PT LIVES ALONE . INDEPENDENT AT BASELINE. STILL DRIVES. +HCP AT HOME (COPY REQUESTED) PCP DR. HUDSON. DP: HOME, NO SERVICES ANTICIPATED. IF SERVICES NEEDED, PT WOULD PREFER [facility] . PT HAS OWN [facility]IDE HOME. CM WILL CONTINUE TO FOLLOW FOR ANY CHANGE IN DC NEEDS/PLAN
[2023-09-28] MEDS: 0.9 % Sodium Chloride 1,000 ML 100 ML IVCONT ×2 (12:34→20:15)
--- NOTE | 2023-09-28 13:22 | MHC.CLN ---
NUTRITION DISCUSSED WEIGHT WITH PATIENT. WEIGHT ON 09/27/23=43KG (97#). PRIOR WEIGHT 08/17/23=59KG (130#). PATIENT STATED THAT CURRENT WEIGHT ABOUT 130#. PATIENT DOES NOT APPEAR TO BE UNDERWEIGHT/MALNOURISHED.
--- NOTE | 2023-09-28 13:52 | PM.EVENT ---
Event Note Date of Service: 09/28/23 Event Note: Chart reviewed patient examined. Agree with H&P and plan as outlined. Clear liquids today with colon prep overnight. For EGD and colonoscopy in in a.m. discussed with GI Time Spent With Patient Time: Total time managing care of this patient today ____ minutes.
[2023-09-28] MEDS: PEG 3350/Na Sulf,Bicarb,Cl/KCL 4,000 ML SOLN.RECON 4000 ML PO (20:07)
[2023-09-29] MEDS: Metoprolol Tartrate 25 MG TABLET PO ×3 (00:53→20:21)
[2023-09-29] MEDS: Metoprolol Tartrate 5 MG/5 ML VIAL IVPUSH (00:55)
--- NOTE | 2023-09-29 01:15 | MHC.PIE ---
p; p 110-150's, b/p 160/90, pt c/o sob - note; pt reports hx of sob at home. note home med metoprolol not ordered? i; dr brown notified; new order metoprolol po now, metoprolol iv now, o2 prn e; will cont to monitor
[2023-09-29 01:21] LABS: Hematocrit 28.9 % (37.0-47.0); Hemoglobin 9.1 g/dl (12.0-16.0); Mean Corpuscular HGB Conc 31.5 g/dl (31.0-35.0); Mean Corpuscular Hemoglobin 23.9 pg (27.0-33.0); Mean Corpuscular Volume 76.1 fL (80.0-98.0); Mean Platelet Volume 9.4 fL (9.4-12.3); NRBC Pct Auto 2.3 /100WBC (0.0-0.2); Platelet Count 358 X10*3/uL (160-400); Red Cell Distribution Width 17.5 % (11.0-16.0); White Blood Count 9.5 X10*3/uL (4.8-10.8)
[2023-09-29] MEDS: 0.9 % Sodium Chloride 1,000 ML 100 ML IVCONT ×2 (03:01→20:21)
[2023-09-29] MEDS: Octreotide Acetate 500 MCG in 0.9 % Sodium Chloride 500 ML 50.1 MCG IVCONT ×3 (03:02→21:59)
[2023-09-29] MEDS: Metoprolol Tartrate 5 MG in 0.9 % Sodium Chloride 50 ML 220 MG IV (03:08)
[2023-09-29 03:17] VITALS: BP 160/90; PULSE 113; RESP 18; TEMP 36.2; O2SAT 100
--- NOTE | 2023-09-29 03:31 | MHC.PIE ---
Addendum entered by Jones Yadav RN 09/29/23 03:54: e; p 96, will cont to monitor Original Note: p; p 110-130's i; dr kevin jensen md in room . new order metoprolol iv q15 prn e; will cont to monitor
[2023-09-29 04:17] VITALS: PULSE 96
[2023-09-29 05:25] LABS: MANUAL DIFF FLAG NO
[2023-09-29 05:29] LABS: Basophils Absolute Auto 0.1 X10*3/uL (0.0-0.2); Basophils Percent Auto 0.5 % (0-2); Eosinophils Absolute Auto 0.1 X10*3/uL (0.0-0.4); Eosinophils Percent Auto 0.9 % (0-4); Hematocrit 26.5 % (37.0-47.0); Hemoglobin 8.4 g/dl (12.0-16.0); Imm Gran Abs Auto 0.05 X10*3/uL (0.00-0.03); Imm Gran Pct Auto 0.5 % (0.0-0.4); Lymphocytes Absolute Auto 1.4 X10*3/uL (1.2-4.9); Lymphocytes Percent Auto 14.5 % (20-40); Mean Corpuscular HGB Conc 31.7 g/dl (31.0-35.0); Mean Corpuscular Hemoglobin 24.2 pg (27.0-33.0); Mean Corpuscular Volume 76.4 fL (80.0-98.0); Mean Platelet Volume 9.5 fL (9.4-12.3); Monocytes Absolute Auto 1.1 X10*3/uL (0.1-1.2); Monocytes Percent Auto 12.2 % (2-11); NRBC Pct Auto 2.1 /100WBC (0.0-0.2); Neutrophils Absolute Auto 6.7 x10*3/uL (2.0-8.3); Neutrophils Percent Auto 71.4 % (45-73); Platelet Count 327 X10*3/uL (160-400); Red Blood Count 3.47 X10*6/uL (4.20-5.50); Red Cell Distribution Width 17.7 % (11.0-16.0); White Blood Count 9.4 X10*3/uL (4.8-10.8)
[2023-09-29 05:47] LABS: Alanine Aminotransferase 885 U/L (0-31); Albumin Level 3.1 g/dL (3.5-5.0); Alkaline Phosphatase 108 U/L (39-117); Anion Gap 15 (12-20); Aspartate Amino Transferase 618 U/L (5-31); Bilirubin Total 1.3 mg/dL (0.0-1.0); Blood Urea Nitrogen 22 mg/dL (9-16); Calcium 7.8 mg/dL (8.4-10.2); Carbon Dioxide 24 mmol/L (22-29); Chloride 101 mmol/L (96-108); Creatinine Clr Calc Pharmacy 43.5; Estimated Glomerular Filt Rate 52; Glucose Fasting 119 mg/dL (60-99); Potassium 4.1 mmol/L (3.3-5.1); Sodium 136 mmol/L (135-145); Total Protein 5.3 g/dL (6.5-8.0)
[2023-09-29] MEDS: Pantoprazole Sodium 40 MG/10 ML VIAL IVPUSH ×2 (06:22→17:16)
[2023-09-29 08:00] VITALS: BP 146/95; PULSE 96; RESP 18; TEMP 36.6; O2SAT 100
--- NOTE | 2023-09-29 09:07 | P.CDIM_ITS ---
PROVIDER RESPONSE TEXT: To clarify, the appropriate diagnosis supported by the clinical indicators: Persistent atrial fibrillation: episodes of continuous AF that last more than 7 days and do not self- terminate QUERY TEXT: PHYSICIAN'S DOCUMENTATION REQUEST Date of Query: 09/29/2023 07:56 AM EST Patient Name: Melita Sanz Admit Date: 09/28/2023 Dear Grayson Rodriguez, A review of the medical record indicates additional documentation may be needed. Please review below and update the documentation accordingly. Clinical Indicators: H&P: Rapid Atrial fibrillation secondary to bleeding. Metoprolol PMH: Afib on Eliquis Tachycardia consistent with rapid atrial fibrillation. If possible, please provide further specificity regarding atrial fibrillation, such as: Paroxysmal atrial fibrillation: terminates spontaneously or with intervention within 7 days of onset Persistent atrial fibrillation: episodes of continuous AF that last more than 7 days and do not self- terminate Long lasting persistent atrial fibrillation: episodes of continuous AF that last more than 12 months Chronic or Permanent atrial fibrillation: when a decision has been made to accept the presence of AF and there is no further attempt to restore or maintain sinus rhythm Other (explain) Clinically unable to determine (explain) Thank you, Jyoti Avila, CCS, CDIS Use of terms such as suspected, likely, concern for, or probable (associated with a specific diagnosi s that is being evaluated, monitored, or treated as if it exists) are acceptable and can be coded in the inpatient se tting, when documented at the time of discharge. Please use your independent medical judgment in providing your response. THIS QUERY IS PART OF THE PERMANENT MEDICAL RECORD
[2023-09-29 11:45] LABS: INTERNATIONAL NORM RATIO 2.4 (0.9-1.1); Prothrombin Time 29.1 SEC (11.1-13.3)
[2023-09-29 11:48] VITALS: BP 122/82; PULSE 106; RESP 15; TEMP 36.5; O2SAT 98
[2023-09-29 14:49] LABS: Hepatitis B Core Antibody IgM NON-REACTIVE (NON-REACTIVE)
--- NOTE | 2023-09-29 15:25 | HO.PM.IMPN ---
Subjective Subjective Date of Service: 09/29/23 Interval History: To not undergo colonoscopy/EGD secondary to increased INR. No active bleeding since admission Review of Systems Denies chest pain Denies shortness of breath Denies nausea vomiting diarrhea Denies fever chills Physical Exam Vital Signs: Vital Signs: Last Vital Signs Temp 97.7 F 09/29/23 11:48 Pulse 106 H 09/29/23 11:48 Resp 15 09/29/23 11:48 BP 122/82 09/29/23 11:48 Pulse Ox 98 09/29/23 11:48 O2 Del Method Nasal Cannula 09/29/23 11:48 O2 Flow Rate 2 09/29/23 11:48 BMI result Body Mass Index 23.0 Const: Other: No acute issues overnight. No active bleeding Resp: Other: Clear to auscultation bilaterally no rales rhonchi or wheezes Cardio: Other: No S4; positive S1-S2; no S3 murmurs rubs or gallops GI: Other: Soft nontender nondistended normoactive bowel sounds Extrem: Other: No edema bilaterally Objective Data Active Medications Octreotide Acetate 500 mcg/ (Sodium Chloride) 501 mls @ 50.1 mls/hr IVCONT .Q10H [facility] Last Admin: 09/29/23 13:12 Dose: 50 mcg/hr, 50.1 mls/hr Documented By: CHANELLE Sodium Chloride (Ns) 1,000 mls @ 100 mls/hr IVCONT .Q10H [facility] Last Infusion: 09/29/23 13:14 Dose: Infused Documented By: CHANELLE Metoprolol Tartrate 5 mg/ (Sodium Chloride) 55 mls @ 220 mls/hr IV Q15M PRN PRN Reason: Heart Rate >100 Last Infusion: 09/29/23 03:28 Dose: Infused Documented By: LEONCOI Metoprolol Tartrate (Metoprolol Tartrate 25 Mg Tablet) 25 mg PO BID [facility]; Protocol Last Admin: 09/29/23 08:03 Dose: 25 mg Documented By: CHANELLE Pantoprazole Sodium (Pantoprazole Sodium 40 Mg/10 Ml Vial) 40 mg IVPUSH BID@0630,1630 [facility] Last Admin: 09/29/23 06:22 Dose: 40 mg Documented By: LEONCIO Sodium Chloride (0.9 % Sodium Chloride Flush 3 Ml Syringe) 3 ml IVFLUSH QSHIFT [facility] Last Admin: 09/29/23 08:03 Dose: Not Given Documented By: CHANELLE Non-Admin Reason: IV Running Labs 09/29/23 05:12 09/29/23 05:12 Labs: Laboratory Results - last 24 hr 09/28/23 09/29/23 09/29/23 06:27 01:09 05:12 MCV 76.1 L 76.4 L MCH 23.9 L 24.2 L MCHC 31.5 31.7 RDW 17.5 H 17.7 H Plt Count 358 327 MPV 9.4 9.5 Immature Gran % (Auto) 0.5 H Neut % (Auto) 71.4 Lymph % (Auto) 14.5 L [place] % (Auto) 12.2 H Eos % (Auto) 0.9 Baso % (Auto) 0.5 Lymph # (Auto) 1.4 [place] # (Auto) 1.1 Eos # (Auto) 0.1 Baso # (Auto) 0.1 Abs Immat Gran (auto) 0.05 H Absolute Neuts (auto) 6.7 Absolute Nucleated RBC 0.220 H 0.200 H Nucleated RBC % (auto) 2.3 H 2.1 H PT INR Anion Gap 15 Estim Creat Clear Calc 43.5 Estimated GFR 52 Fasting Glucose 119 H Calcium 7.8 L D Total Bilirubin 1.3 H AST 618 H ALT 885 H Alkaline Phosphatase 108 Total Protein 5.3 L Albumin 3.1 L Hep B Core IgM Ab NON-REACTIVE 09/29/23 11:11 MCV MCH MCHC RDW Plt Count MPV Immature Gran % (Auto) Neut % (Auto) Lymph % (Auto) [place] % (Auto) Eos % (Auto) Baso % (Auto) Lymph # (Auto) [place] # (Auto) Eos # (Auto) Baso # (Auto) Abs Immat Gran (auto) Absolute Neuts (auto) Absolute Nucleated RBC Nucleated RBC % (auto) PT 29.1 H INR 2.4 H Anion Gap Estim Creat Clear Calc Estimated GFR Fasting Glucose Calcium Total Bilirubin AST ALT Alkaline Phosphatase Total Protein Albumin Hep B Core IgM Ab Assessment and Plan (1) Acute GI bleeding: Status: Acute (2) Anemia: Status: Acute (3) Hyperprothrombinemia: Status: Acute Plan Melita Sanz is a 67 years old woman with left lung mass status post thoracostomy and left upper lobectomy in 2021 acute blood loss anemia 1. Acute anemia secondary to GI bleed -Eliquis/Plavix held however INR remains elevated; EGD/colon canceled -will recheck PT INR in a.m. -FFP as indicated 2. Hyperprothrombinemia -as above; recheck PT/INRs in a.m. -treat as indicated 3. AFib (with periods of RVR) -acceptable rate control at present -IV beta-ramos as indicated -hold Eliquis at this time 4. History of iliac artery stent -resume aspirin/Plavix when cleared by GI DVT prophylaxis: SCDs only due to acute GI bleeding Code status: Full Patient will require ongoing hospitalization to monitor for GI bleed pending EGD/colon. INR remains elevated will follow in a.m. Quality Stroke Does the patient have a stroke diagnosis?: No VTE Prior VTE?: No VTE Risk Level:: Medical - moderate - high VTE Device Contraindication: N/A - Device Ordered VTE Drug Contraindication: Treatment Not Indicated
[2023-09-29 15:37] VITALS: BP 127/97; PULSE 109; RESP 16; TEMP 36.3; O2SAT 97
[2023-09-29 20:00] VITALS: BP 179/80; PULSE 108; RESP 20; TEMP 36.7; O2SAT 98
[2023-09-29] MEDS: Acetaminophen 325 MG TABLET 650 MG PO (20:21)
[2023-09-30] VITALS (9 sets, daily range): BP systolic 91–152; BP diastolic 45–91; PULSE 72–101; RESP 12–20; TEMP 35.7–36.4; O2SAT 92–100
[2023-09-30] MEDS: Pantoprazole Sodium 40 MG/10 ML VIAL IVPUSH ×2 (05:00→15:42)
[2023-09-30 07:49] LABS: MANUAL DIFF FLAG NO
[2023-09-30 07:51] LABS: Basophils Percent Auto 0.4 % (0-2); Eosinophils Absolute Auto 0.1 X10*3/uL (0.0-0.4); Eosinophils Percent Auto 0.6 % (0-4); Hematocrit 26.6 % (37.0-47.0); Hemoglobin 8.3 g/dl (12.0-16.0); Imm Gran Abs Auto 0.08 X10*3/uL (0.00-0.03); Imm Gran Pct Auto 0.7 % (0.0-0.4); Lymphocytes Absolute Auto 1.6 X10*3/uL (1.2-4.9); Lymphocytes Percent Auto 14.7 % (20-40); Mean Corpuscular HGB Conc 31.2 g/dl (31.0-35.0); Mean Corpuscular Hemoglobin 23.9 pg (27.0-33.0); Mean Corpuscular Volume 76.7 fL (80.0-98.0); Mean Platelet Volume 9.8 fL (9.4-12.3); Monocytes Absolute Auto 1.3 X10*3/uL (0.1-1.2); Monocytes Percent Auto 11.4 % (2-11); NRBC Pct Auto 0.9 /100WBC (0.0-0.2); Neutrophils Percent Auto 72.2 % (45-73); Platelet Count 303 X10*3/uL (160-400); Red Blood Count 3.47 X10*6/uL (4.20-5.50); Red Cell Distribution Width 18.4 % (11.0-16.0)
[2023-09-30 07:58] LABS: INTERNATIONAL NORM RATIO 2.6 (0.9-1.1); Prothrombin Time 31.6 SEC (11.1-13.3)
[2023-09-30 08:06] LABS: Alanine Aminotransferase 1183 U/L (0-31); Alkaline Phosphatase 105 U/L (39-117); Anion Gap 13 (12-20); Aspartate Amino Transferase 1072 U/L (5-31); Bilirubin Total 1.2 mg/dL (0.0-1.0); Blood Urea Nitrogen 20 mg/dL (9-16); Carbon Dioxide 21 mmol/L (22-29); Chloride 105 mmol/L (96-108); Creatinine Clr Calc Pharmacy 46.2; Estimated Glomerular Filt Rate 56; Glucose Fasting 109 mg/dL (60-99); Potassium 3.4 mmol/L (3.3-5.1); Sodium 136 mmol/L (135-145); Total Protein 5.1 g/dL (6.5-8.0)
[2023-09-30] MEDS: Metoprolol Tartrate 25 MG TABLET PO ×2 (08:45→19:45)
[2023-09-30] MEDS: Octreotide Acetate 500 MCG in 0.9 % Sodium Chloride 500 ML 50.1 MCG IVCONT (08:45)
[2023-09-30 11:33] LABS: Lactate Dehydrogenase 985 U/L (122-220)
[2023-09-30] MEDS: Acetaminophen 325 MG TABLET 650 MG PO (11:41)
--- NOTE | 2023-09-30 14:53 | PM.GIPN ---
Subjective Subjective Date of Service: 09/30/23 Interval History: She is feeling better plan was for egd and colo today but postponed by anesthesia due to worsening LFT and INR still >2 no further overt bleeding no nausea or vomiting bowel prep with clear output, no abdominal pain, mild RUQ discomfort Critical Care Time (minutes): 0 Physical Exam Vital Signs: Vital Signs: Last Vital Signs Temp 96.9 F 09/30/23 13:15 Pulse 90 09/30/23 13:15 Resp 18 09/30/23 13:15 BP 103/45 L 09/30/23 13:15 Pulse Ox 96 09/30/23 11:50 O2 Del Method Room Air 09/30/23 11:50 O2 Flow Rate 1 09/30/23 07:56 BMI result Body Mass Index 23.0 EXAM: GENERAL: The patient is well developed and nontoxic. VITAL SIGNS:see workflow HEENT: Nonicteric sclerae, PERRLA, EOMI. Oropharynx clear. Moist mucous membranes. Conjunctivae appear well perfused. No thyroid mass. CHEST: Chest wall is nontender. HEART: Regular rate and rhythm without murmurs. LUNGS: Clear to auscultation bilaterally. ABDOMEN: Soft, positive bowel sounds, nontender, no organomegaly.no flank tenderness SKIN: No rash, no excessive bruising, petechiae, or purpura. NEUROLOGIC: Cranial nerves II-XII intact without motor/sensory deficit. Psych: Appearance: grossly normal Objective Data Labs 09/30/23 07:44 09/30/23 07:44 Labs: Laboratory Results - last 24 hr 09/27/23 09/30/23 19:12 07:44 WBC 11.0 H RBC 3.47 L Hgb 8.3 L Hct 26.6 L MCV 76.7 L MCH 23.9 L MCHC 31.2 RDW 18.4 H Plt Count 303 MPV 9.8 Immature Gran % (Auto) 0.7 H Neut % (Auto) 72.2 Lymph % (Auto) 14.7 L Cochran % (Auto) 11.4 H Eos % (Auto) 0.6 Baso % (Auto) 0.4 Lymph # (Auto) 1.6 Cochran # (Auto) 1.3 H Eos # (Auto) 0.1 Baso # (Auto) 0.0 Abs Immat Gran (auto) 0.08 H Absolute Neuts (auto) 8.0 Absolute Nucleated RBC 0.100 H Nucleated RBC % (auto) 0.9 H PT 31.6 H INR 2.6 H Sodium 136 Potassium 3.4 Chloride 105 Carbon Dioxide 21 L Anion Gap 13 BUN 20 H Creatinine 0.99 Estim Creat Clear Calc 46.2 Estimated GFR 56 Fasting Glucose 109 H Calcium 8.0 L Total Bilirubin 1.2 H AST 1072 H ALT 1183 H Alkaline Phosphatase 105 Lactate Dehydrogenase 985 H Total Creatine Kinase 346 H Total Protein 5.1 L Albumin 3.0 L Blood Type AB Positive Antibody Screen NEGATIVE Crossmatch See Detail Procedures Date of Service Date of Service: 09/30/23 Progress Note: A&P Assessment and plan (1) Anemia: Status: Acute (2) Acute GI bleeding: Status: Acute Plan 1/ Acute bleeding from numerous sources prob due to combination of prolonged ab use with vit K def, plavix and eliquis use. 2/ Abn LFT, due to ischemia, possible muscle source as well, CK and LDH elevation noted in labs, bili has came down, have limited suspicion for acute liver failure PLAN: 1/ Vit K 10 mg IV for 3 d 2/ cont to trend HGB, consider need for both plavix and eliquis together 3/ avoid hepatotoxins and over zealous BP control 4/ depending on clinical course can defer to o/p egd,colonoscopy Time Spent With Patient Time: Total time managing care of this patient today ____ minutes. Quality Stroke Does the patient have a stroke diagnosis?: No VTE Prior VTE?: No VTE Risk Level:: Medical - moderate - high VTE Device Contraindication: N/A - Device Ordered VTE Drug Contraindication: Treatment Not Indicated
--- NOTE | 2023-09-30 15:08 | P.PNIM_ITS ---
Subjective Subjective Date of Service: 09/30/23 Interval History: No further bleeding since admission. EGD canceled secondary to hyperprothrombinemia Review of Systems Denies chest pain Denies shortness of breath Denies nausea vomiting diarrhea Denies fever chills Physical Exam 2 Vital Signs: Vital Signs: Last Vital Signs Temp 96.9 F 09/30/23 13:15 Pulse 90 09/30/23 13:15 Resp 18 09/30/23 13:15 BP 103/45 L 09/30/23 13:15 Pulse Ox 96 09/30/23 11:50 O2 Del Method Room Air 09/30/23 11:50 O2 Flow Rate 1 09/30/23 07:56 BMI result Body Mass Index 23.0 Const: Other: No acute issues overnight. No active bleeding Resp: Other: Clear to auscultation bilaterally no rales rhonchi or wheezes Cardio: Other: No S4; positive S1-S2; no S3 murmurs rubs or gallops GI: Other: Soft nontender nondistended normoactive bowel sounds Extrem: Other: No edema bilaterally Objective Data Active Medications Acetaminophen (Acetaminophen 325 Mg Tablet) 650 mg PO Q6H PRN PRN Reason: Pain, Mild (Pain Scale 1-3) Last Admin: 09/30/23 11:41 Dose: 650 mg Documented By: RAMON Metoprolol Tartrate 5 mg/ (Sodium Chloride) 55 mls @ 220 mls/hr IV Q15M PRN PRN Reason: Heart Rate >100 Last Infusion: 09/29/23 03:28 Dose: Infused Documented By: LEONCIO Metoprolol Tartrate (Metoprolol Tartrate 25 Mg Tablet) 25 mg PO BID [facility]; Protocol Last Admin: 09/30/23 08:45 Dose: 25 mg Documented By: RAMON Pantoprazole Sodium (Pantoprazole Sodium 40 Mg/10 Ml Vial) 40 mg IVPUSH BID@0630,1630 [facility] Last Admin: 09/30/23 05:00 Dose: 40 mg Documented By: TC Sodium Chloride (0.9 % Sodium Chloride Flush 3 Ml Syringe) 3 ml IVFLUSH QSHIFT [facility] Last Admin: 09/30/23 08:45 Dose: Not Given Documented By: RAMON Non-Admin Reason: IV Running Labs 09/30/23 07:44 09/30/23 07:44 Labs: Laboratory Results - last 24 hr 09/27/23 09/30/23 19:12 07:44 MCV 76.7 L MCH 23.9 L MCHC 31.2 RDW 18.4 H Plt Count 303 MPV 9.8 Immature Gran % (Auto) 0.7 H Neut % (Auto) 72.2 Lymph % (Auto) 14.7 L [place] % (Auto) 11.4 H Eos % (Auto) 0.6 Baso % (Auto) 0.4 Lymph # (Auto) 1.6 [place] # (Auto) 1.3 H Eos # (Auto) 0.1 Baso # (Auto) 0.0 Abs Immat Gran (auto) 0.08 H Absolute Neuts (auto) 8.0 Absolute Nucleated RBC 0.100 H Nucleated RBC % (auto) 0.9 H PT 31.6 H INR 2.6 H Anion Gap 13 Estim Creat Clear Calc 46.2 Estimated GFR 56 Fasting Glucose 109 H Calcium 8.0 L Total Bilirubin 1.2 H AST 1072 H ALT 1183 H Alkaline Phosphatase 105 Lactate Dehydrogenase 985 H Total Creatine Kinase 346 H Total Protein 5.1 L Albumin 3.0 L Blood Type AB Positive Antibody Screen NEGATIVE Crossmatch See Detail Assessment and Plan (1) Anemia: Status: Acute (2) Hyperprothrombinemia: Status: Acute Plan Melita Sanz is a 67 years old woman with left lung mass status post thoracostomy and left upper lobectomy in 2021 acute blood loss anemia 1. Acute anemia secondary to GI bleed -Eliquis/Plavix held however INR remains elevated; EGD/colon canceled -will recheck PT INR in a.m. - 2 units FFP given -vitamin K 10 mg IV -will DC octreotide drip 2. Hyperprothrombinemia -as above; recheck PT/INRs in a.m. -treat as indicated 3. AFib (with periods of RVR) -acceptable rate control at present -IV beta-ramos as indicated -hold Eliquis at this time 4. History of iliac artery stent -resume aspirin/Plavix when cleared by GI DVT prophylaxis: SCDs only due to acute GI bleeding Code status: Full Patient will require ongoing hospitalization to monitor for GI bleed pending EGD/colon. INR remains elevated will follow in a.m. Quality Stroke Does the patient have a stroke diagnosis?: No VTE Prior VTE?: No VTE Risk Level:: Medical - moderate - high VTE Device Contraindication: N/A - Device Ordered VTE Drug Contraindication: Treatment Not Indicated
[2023-09-30] MEDS: 0.9 % Sodium Chloride Flush 3 ML SYRINGE IVFLUSH (17:58)
[2023-09-30] MEDS: Phytonadione (Vit K1) 10 MG in 0.9 % Sodium Chloride 50 ML 51 MG IV (17:58)
[2023-09-30] MEDS: Lactated Ringers 1,000 ML 100 ML IVCONT (19:46)
[2023-10-01] VITALS (25 sets, daily range): BP systolic 0–150; BP diastolic 0–109; PULSE 88–118; RESP 15–30; TEMP 35.5–36.1; O2SAT 87–97
[2023-10-01] MEDS: Metoprolol Tartrate 5 MG in 0.9 % Sodium Chloride 50 ML 220 MG IV ×2 (03:52→04:26)
[2023-10-01] MEDS: Metoprolol Tartrate 5 MG/5 ML VIAL IVPUSH (04:45)
[2023-10-01] MEDS: dilTIAZem HCL 50 MG/10 ML VIAL 10 MG IVPUSH (05:14)
[2023-10-01 06:03] LABS: Venous Blood Gas Refer to POC result
[2023-10-01 06:07] LABS: INTERNATIONAL NORM RATIO 4.4 (0.9-1.1); Prothrombin Time 54.1 SEC (11.1-13.3)
[2023-10-01 06:07] LABS: VBG Base Excess -20.5 mmol/L; VBG HCO3 6 mmol/L (22-26); VBG pCO2 17 mmHg; VBG pH 7.14 (7.32-7.43); VBG pO2 120 mmHg
[2023-10-01] MEDS: Sodium Bicarbonate 8.4% 50 MEQ/50 ML SYRINGE IVPUSH ×2 (06:22→06:37)
[2023-10-01] MEDS: Pantoprazole Sodium 40 MG/10 ML VIAL IVPUSH (06:32)
--- NOTE | 2023-10-01 06:46 | P.EN_ITS ---
Event Note Date of Service: 10/01/23 Event Note: Patient developed atrial fibrillation with rapid ventricular response heart rate 140-170. The patient was noted to be tachypneic. Lungs auscultation is remarkable for decreased breath sound at bases Received multiple doses of metoprolol IV with improvement heart rate. Therapy with Cardizem 10 mg IV which helped with for very uncontrolled heart rate subsequently Cardizem IV infusion was started. CXR stat portable show infiltrates/atelectasis at the bases gigi ateral small pleural effusion. Blood workup stat including CBC, CMP, lactic acid venous gas and blood cultures obtained. Remarkable for severe metabolic acidosis: PH 7.14, HCO3 6, pCO2 17. Hemoglobin is 8.3 (yesterday was 8.4). Glucose is normal. Transaminases continued to get worse. CK is elevated. Lactic acid is still pending. Tx: Bicarb 50 mEq IV x2 then IV infusion, empiric IV antibiotic therapy with vancomycin and Zosyn. NS 1 L bolus. Discussed with ICU. Consult placed. Time Spent With Patient Time: Total time managing care of this patient today ____ minutes.
[2023-10-01] MEDS: Norepinephrine Bitartrate/D5W 8 MG/250 ML PLAST..BAG 5.53 MG IV (08:00)
[2023-10-01] MEDS: Sodium Bicarbonate 8.4% 100 MEQ in Dextrose 5 % 900 ML IV (08:35)
[2023-10-01 08:43] LABS: Glucose, Whole Blood 158 mg/dL (60-115)
--- NOTE | 2023-10-01 08:46 | W.PM.CCHP ---
Procedures Date of Service Date of Service: 10/01/23 Central Line Placement Right Femoral: Consent for Procedure: Emergent-no informed consent obtained Time out performed: Yes Sterile Technique Used: Yes Patient placed on monitor/pulse ox: Yes prep: mask, gown, gloves and other Central line prep: Chlorhexidine scrub Ultrasound used for placement: Yes Central line lumen inserted: triple Post procedure: sutured in place, good blood return, all ports aspirated, flushed, capped and sterile dressing applied Patient tolerated procedure: well and no complications Complications: none
--- NOTE | 2023-10-01 08:54 | P.PNCC_ITS ---
Subjective Subjective Date of Service: 10/01/23 Interval History: Patient is a 67 Y F w/ hypertension, hyperlipidemia, atrial fibrillation on apixaban, NOLAN mass s/p lobectomy, presenting initially to ED on 09/28 w/ hematemesis, hematuria, and abnormal uterine bleeding, found to have acute blood loss anemia, elevated INR, and transaminitis, as well as atrial fibrillation w/ rapid ventricular response, admitted floor; on 10/01 AM, ICU called c/f metabolic acidosis and hemodynamic instability, atrial fibrillation w/ rapid ventricular response and undetectable manual blood pressure; upon evaluation, patient found to be altered w/ difficulty appreciating manual blood pressure; patient started on norepinephrine gtt w/ improvement of hemodynamics; POC glucose below detectable, given D50; subsequently, patient transferred to ICU Critical Care Time (minutes): 120 Physical Exam 2 Vital Signs: Vital Signs: Last Vital Signs Temp 96.9 F 10/01/23 03:38 Pulse 105 H 10/01/23 08:15 Resp 20 10/01/23 03:38 BP 112/70 10/01/23 08:15 Pulse Ox 94 10/01/23 03:38 O2 Del Method Nasal Cannula 10/01/23 03:38 O2 Flow Rate 2 10/01/23 03:38 BMI result Body Mass Index 23.0 Const: Other: pale, lethargic, though arousable with verbal stimulus; oriented to person, place; Orientation/consciousness: oriented to person and oriented to place HEENT: Head: Yes normal to inspection, Yes normocephalic and Yes atraumatic Eyes: General: appearance normal, both eyes and all related structures Neck: Neck: Yes normal visual inspection, Yes full ROM, Yes no meningeal signs and Yes supple Chest: Chest palpation & inspection: normal inspection of the chest Resp: Other: no appreciable rales, rhonchi, wheezing; appreciable hyperpnea Effort & Inspection: able to speak in complete sentences Cardio: Rate: tachycardic Rhythm: abnormal rhythm GI: Inspection: Yes normal to inspection, No Abdominal wall edema and No distended Palpation (GI): Soft to palpation, not firm, nontender, no guarding and not rigid : External Female Exam: normal external appearance Skin: Other: appreciable ecchymoses throughout Neuro: General: oriented to person, oriented to place, tone normal, moves all extremities, no meningeal signs and no focal motor deficits Extrem: Other: cyanosis; capillary refill >2 seconds; all compartments soft Psych: Appearance: grossly normal Objective Data Labs 10/01/23 08:52 09/30/23 07:44 Labs: Laboratory Results - last 24 hr 09/27/23 09/30/23 10/01/23 19:12 07:44 05:51 PT 54.1 H D INR 4.4 H VBG pH VBG pCO2 VBG pO2 VBG HCO3 VBG O2 Saturation VBG Base Excess POC Glucose Lactate Dehydrogenase 985 H Total Creatine Kinase 346 H Blood Type AB Positive Antibody Screen NEGATIVE Crossmatch See Detail 10/01/23 10/01/23 05:56 08:40 PT INR VBG pH 7.14 L* VBG pCO2 17 VBG pO2 120 VBG HCO3 6 L VBG O2 Saturation 99.0 VBG Base Excess -20.5 POC Glucose 158 H Lactate Dehydrogenase Total Creatine Kinase Blood Type Antibody Screen Crossmatch Progress Note: A&P Assessment and plan (1) Shock: Status: Acute (2) Acute blood loss anemia: Status: Acute (3) Atrial fibrillation with rapid ventricular response: Status: Acute Plan Patient is a 67 Y F w/ hypertension, hyperlipidemia, atrial fibrillation on apixaban, NOLAN mass s/p lobectomy, presenting initially to ED on 09/28 w/ hematemesis, hematuria, and abnormal uterine bleeding, found to have acute blood loss anemia, admitted floor; on 10/01 AM, patient developed shock, transferred ICU N: encephalopathy, likely toxic-metabolic, improving; continue to monitor CV: shock, c/f septic shock; no overt hemorrhage appreciated; POCUS suggestive of mildly reduced LVEF, normal RV size, IVC w/ < 50% collapsibility; norepinephrine gtt, wean as tolerated R: 5L NC, wean as tolerated GI: NPO; shock liver; maintain suspicion for GI bleeding, PPI, appreciate GI recommendations : VADIM, to monitor renal indices very closely; metabolic acidosis d/t lactic acidosis H: acute blood loss anemia, though no overt hemorrhage appreciated; to monitor very closely; maintain low threshold for PCC w/ evidence of clinically significant bleeding ID: c/f septic shock; empiric vancomycin, zosyn; follow-up BCx, CT C, A/P E: hypoglycemia, on D5 gtt; diabetes mellitus P: no acute issues of note, 30 mL/kg bolus deferred given new oxygen requirement and c/f volume overload w/ VADIM and multiple gtts Quality Stroke Does the patient have a stroke diagnosis?: No VTE Prior VTE?: No VTE Risk Level:: Medical - moderate - high VTE Device Contraindication: N/A - Device Ordered VTE Drug Contraindication: Treatment Not Tolerated
[2023-10-01] MEDS: Calcium Gluconate/NaCl,Iso-Osm 1 GM/50 ML PLAST..BAG IV (09:05)
[2023-10-01 09:12] LABS: Hematocrit 28.5 % (37.0-47.0); Hemoglobin 8.4 g/dl (12.0-16.0); Mean Corpuscular HGB Conc 29.5 g/dl (31.0-35.0); Mean Corpuscular Hemoglobin 24.1 pg (27.0-33.0); Mean Corpuscular Volume 81.7 fL (80.0-98.0); NRBC Pct Auto 0.8 /100WBC (0.0-0.2); Platelet Count 330 X10*3/uL (160-400); Red Blood Count 3.49 X10*6/uL (4.20-5.50); Red Cell Distribution Width 19.2 % (11.0-16.0); White Blood Count 27.6 X10*3/uL (4.8-10.8)
[2023-10-01] MEDS: Piperacillin Sodium/Tazobactam 3.375 GM in 0.9 % Sodium Chloride 50 ML IV (09:13)
[2023-10-01 09:16] LABS: VBG Base Excess -17.7 mmol/L; VBG HCO3 9 mmol/L (22-26); VBG pCO2 26 mmHg; VBG pH 7.15 (7.32-7.43); VBG pO2 48 mmHg
[2023-10-01 09:20] LABS: Appearance Urine Cloudy; Color Urine Dark Yellow; Glucose Urine UA 100 mg/dL (Negative); Leukocyte Esterase Urine Negative (Negative); Nitrite Urine Negative (Negative); PH 5.5 (5.0-9.0); UMIC TRIGGER UA YES; Urine Blood Large (3+) (Negative); Urine Ketones Negative (Negative); Urine Protein 100 (2+) mg/dL (Neg-Trace)
[2023-10-01 09:24] LABS: Fibrinogen 271 MG/DL (259-690)
[2023-10-01 09:31] LABS: Prothrombin Time 67.6 SEC (11.1-13.3)
[2023-10-01 09:33] LABS: Troponin-I High Sensitivity 26.6 ng/L (<3.5-17.0); Troponin-I High Sensitivity 26.7 ng/L (<3.5-17.0)
[2023-10-01 09:36] LABS: INTERNATIONAL NORM RATIO 5.5 (0.9-1.1)
[2023-10-01 09:39] LABS: Bacteria Urine None Seen (None Seen); Hyaline Casts Urine >20 /LPF (0-2); RBC Urine 0-2 /HPF (0-2); Squamous Epithelial Cell Urine 0-2 /HPF (0-2); WBC Urine 0-5 /HPF (0-5)
[2023-10-01 09:44] LABS: Albumin Level 3.1 g/dL (3.5-5.0); Alkaline Phosphatase 131 U/L (39-117); Anion Gap 29 (12-20); Bilirubin Total 2.5 mg/dL (0.0-1.0); Blood Urea Nitrogen 31 mg/dL (9-16); Calcium 8.7 mg/dL (8.4-10.2); Carbon Dioxide 10 mmol/L (22-29); Chloride 101 mmol/L (96-108); Creatinine Clr Calc Pharmacy 25.2; Estimated Glomerular Filt Rate 28; Glucose Fasting 242 mg/dL (60-99); Lactic Acid 16.3 mmol/L (0.5-2.0); Sodium 136 mmol/L (135-145); Total Protein 5.4 g/dL (6.5-8.0)
[2023-10-01 09:45] LABS: SLIDE REVIEW MANUAL DIFF
--- NOTE | 2023-10-01 09:45 | PC.NURSE ---
[facility] Pt A&O x2, drowsy, on 4L NC, Afib RVR cardizem gtt, cold extremities, Unable to get an 02 sat, BP and POC. Dr Salgado at bedside. HR drop from 100's to 70 CODE blue called, Bicarb x2 IVP, D50 x2 IVP, and levophed gtt initiated per MD order. Pt Tx to ICU
[2023-10-01 09:48] LABS: TSH reflex Free T4 1.72 uIU/mL (0.32-4.0)
[2023-10-01 09:50] LABS: Alanine Aminotransferase 3494 U/L (0-31)
[2023-10-01 09:53] LABS: Aspartate Amino Transferase > 4202 U/L (5-31)
[2023-10-01 09:58] LABS: Band Neutrophils Percent 5 % (3-5); Lymphocytes Absolute Manual 1.1 X10*3/uL (1.2-4.9); Lymphocytes Percent Manual 4 % (20-40); Monocytes Absolute Manual 0.3 X10*3/uL (0.1-1.2); Monocytes Percent Manual 1 % (2-11); Neutrophils Absolute Manual 26.2 X10*3/uL (2.0-8.3); Neutrophils Percent Manual 90 % (45-73); Nucleated Red Blood Cells 1 /100WBC (0-0); RBC Morphology NOTED
[2023-10-01 09:59] LABS: Acanthocytes 3+ (>5) /OIF
[2023-10-01 10:00] LABS: Schistocytes 3+ (>5) /OIF; Spherocytes 2+ (3-5) /OIF
[2023-10-01 10:02] LABS: Burr Cells 2+ (3-5) /OIF; Ovalocytes 1+ (5-14) /OIF
[2023-10-01 10:03] LABS: Polychromasia 2+ (3-5) /OIF
[2023-10-01 10:04] LABS: D Dimer High Sensitivity 6519 NG/ML; Platelet Estimate NORMAL (NORMAL); Platelet Morphology Comment NOTED
[2023-10-01 10:08] LABS: Glucose, Whole Blood < 10 mg/dL (60-115)
[2023-10-01 10:08] LABS: Glucose, Whole Blood < 10 mg/dL (60-115)
[2023-10-01 10:15] LABS: VBG HCO3 10 mmol/L (22-26); VBG pCO2 26 mmHg; VBG pH 7.19 (7.32-7.43); VBG pO2 42 mmHg
[2023-10-01 10:17] LABS: Magnesium 2.1 mg/dL (1.6-2.6)
[2023-10-01] MEDS: Albumin Human 25 % 50 ML 100 ML IV (10:38)
[2023-10-01] MEDS: vancomycin HCL 1,500 MG in 0.9 % Sodium Chloride 500 ML 333.33 MG IV (10:38)
[2023-10-01 10:39] LABS: Glucose, Whole Blood 174 mg/dL (60-115)
[2023-10-01] MEDS: SODIUM BICARBONATE IV (11:16)
[2023-10-01] MEDS: DEXTROSE 5% IV (11:16)
--- NOTE | 2023-10-01 11:33 | PHA.PROG ---
Admission Date/Time: September 27, 2023 22:42 Indication: RESPIRATORY Weight in k.967 kg Adjusted body weight in K.027 Dumas body weight in K.4 Obesity Dosing Indication % IBW: 23.0 Serum Creatinine - Last 168 Hours 09/27/23 09/28/23 09/29/23 19:12 06:27 05:12 Creatinine 0.95 1.19 1.05 09/30/23 10/01/23 07:44 08:52 Creatinine 0.99 1.81 H Estimated CrCl and GFR - Last 168 Hours 09/27/23 09/28/23 09/29/23 19:12 06:27 05:12 Estim Creat Clear Calc 40.3 32.2 43.5 Estimated GFR 59 45 52 09/30/23 10/01/23 07:44 08:52 Estim Creat Clear Calc 46.2 25.2 Estimated GFR 56 28 Vancomycin Loading Dose: 1500 MG Current Vancomycin Dosing Regimen: 750 Q24 HOURS Vancomycin Monitoring using AUC goal of 400 - 600 range with trough as surrogate marker: 516/17.1 Date and Time for next Vancomycin Level to be drawn: 10/03 @0800 Pharmacist Comments on Vancomycin Plan: WILL DRAW BEFORE 3RD DOSE DUE TO VADIM AND SUDDEN PT DECLINE TO ENSURE PROPER DOSING AND SAFETY Vancomycin dosing will take advantage of [employer] as a clinical decision support tool that uses Bayesian modeling to calculate individual patient's pharmacokinetic parameters and forecast the patient's drug concentration time course with the target goal AUC 24 range of 400 - 600 mg/L/hr.
[2023-10-01 11:41] LABS: Reflex Lactate? Lactic Acid Added
[2023-10-01] MEDS: HYDROmorphone HCl 0.5 MG/0.5 ML SYRINGE IVPUSH (11:57)
[2023-10-01] MEDS: Vasopressin 20 UNIT/100 ML INFUS..BTL 12 UNIT IVCONT (12:09)
[2023-10-01 12:25] LABS: Lactate Dehydrogenase 6677 U/L (122-220)
[2023-10-01 12:26] LABS: ~Lactic Acid-LAB USE ONLY 14.6 mmol/L (0.5-2.0)
--- NOTE | 2023-10-01 12:33 | W.MHC.ACPN ---
Advanced Care Planning Note Advanced Care Planning Note Discussed with: family member(s) Time spent (in minutes): 15 Narrative: At this point in time, Ms. Sanz is oriented to person and place, but otherwise does not engage in any other meaningful conversation. Ms. Sanz's healthcare proxy, Tim, and Ms. Sanz's [id number], were present in the ICU. I offered updates and clarifications. We discussed her critical and unstable clinical status. We discussed that her current clinical status is too unstable to go to the CT scanner for imaging. Tim expressed understanding of this. We then discussed her code status. Tim reports Ms. Sanz would not want to suffer, and would not likely want CPR and intubation, but would like to dischss with Ms. Sanz's other healthcare proxy, Steve. Steve lives closeby and will be arriving to the hospital in the very near future. Problems Discussed (1) Shock: (2) Acute blood loss anemia: (3) Atrial fibrillation with rapid ventricular response:
[2023-10-01 12:36] LABS: Venous Blood Gas Refer to POC result
[2023-10-01 12:42] LABS: Glucose, Whole Blood 171 mg/dL (60-115)
[2023-10-01] MEDS: Dextrose 5 % 1,000 ML 75 ML IVCONT (12:46)
--- NOTE | 2023-10-01 12:51 | PC.NURSE ---
Addendum entered by Fermin Swift RN 10/01/23 17:21: all pt belongings given to family/hcp Addendum entered by Fermin Swift RN 10/01/23 16:21: [facility] contacted - ref # [id number] Addendum entered by Fermin Swift RN 10/01/23 15:39: family stated they are waiting for the rest of the family to arrive prior to pt being [employer]ELOP[employer]GER and having all drips turned off. Around 1538 all drips were turned off. md was informed and aware. family was informed of the process and all interventions performed. Addendum entered by Fermin Swift RN 10/01/23 13:17: Md spoke with family and HCP. DNR/DNI was decided and order was placed. Afterwards family decided to make pt interventional physician. Family at bedside Original Note: This RN took over care of pt around 0920. Heating pad in place d/t low temp. Pt confused about what is occurring despite education and restless, requiring frequent redirection. Pt attempting to remove lines, O2, yolis hugger, and attempting to get out of bed while unstable. Obtaining an O2 sat was difficult, Md and RT informed, multiple areas attempted. Around 1205 pt BP dropped to ~47/17, pt awake but dorwsy. MD informed and at bedside. Meds administered as ordered. Levo drip increased to 0.31 per Md order during event. D5 was then started d/t pt POC dropping to 71 after event per md verbal order.
[2023-10-01] MEDS: Phenylephrine HCL 1,000 MCG/10 ML SYRINGE 300 MCG IVPUSH (13:05)
[2023-10-01] MEDS: Sodium Bicarbonate 8.4% 50 MEQ/50 ML VIAL IVPUSH (13:05)
[2023-10-01] MEDS: Phenylephrine HCL 1,000 MCG/10 ML SYRINGE 200 MCG IVPUSH (13:10)
--- NOTE | 2023-10-01 13:52 | PM.DDS ---
Discharge Sum: Prov Provider Primary care physician: Wilma Reyes MD Pronouncing clinician: Heydi Salgado Discharge Sum: Diag PCOD Cause of : Septic shock Contributing Factors (1) Hepatic failure: (2) Renal failure: (3) Acute blood loss anemia: (4) Atrial fibrillation with rapid ventricular response: Discharge Sum: Summary Date and Time Date of admission: 09/27/23 22:42 Additional Data Attending physician: Heydi Salgado MD
[2023-10-01 13:56] LABS: Reflex Lactate? 2 Y
[2023-10-01] MEDS: Scopolamine 1.5 MG PATCH.TD.3 EAR-BEHIND (14:06)
--- NOTE | 2023-10-01 14:27 | P.PNGI_ITS ---
Subjective Subjective Date of Service: 10/01/23 Interval History: Clincial deterioration overnight sudden SOB, severe acidosis and rapid RVR she is on high sriram 02, admits to crampy abdominal pain, upper areas, Critical Care Time (minutes): 0 Physical Exam 2 Vital Signs: Vital Signs: Last Vital Signs Temp 97 F 10/01/23 13:58 Pulse 106 H 10/01/23 13:58 Resp 16 10/01/23 13:58 BP 139/97 H 10/01/23 13:58 Pulse Ox 87 L 10/01/23 12:00 O2 Del Method Non-Rebreather Ma sk 10/01/23 13:00 O2 Flow Rate 15 10/01/23 13:00 FiO2 100 10/01/23 13:00 BMI result Body Mass Index 23.0 EXAM: GENERAL: The patient is tachypneic . VITAL SIGNS:see workflow HEENT: Nonicteric sclerae, PERRLA, EOMI. Oropharynx clear. Moist mucous membranes. Conjunctivae appear well perfused. No thyroid mass. CHEST: Chest wall is nontender. HEART: Regular rate and rhythm without murmurs. LUNGS: Clear to auscultation bilaterally--reduced a/e ABDOMEN: Soft, positive bowel sounds, tender upper abdomen, no organomegaly.no flank tenderness SKIN: No rash, no excessive bruising, petechiae, or purpura. NEUROLOGIC: Cranial nerves II-XII intact without motor/sensory deficit. Objective Data Labs 10/01/23 08:52 10/01/23 08:52 Labs: Laboratory Results - last 24 hr 10/01/23 10/01/23 10/01/23 05:51 05:56 07:53 WBC RBC Hgb Hct MCV MCH MCHC RDW Plt Count MPV Immature Gran % (Auto) Neut % (Auto) Lymph % (Auto) Wilkinson % (Auto) Eos % (Auto) Baso % (Auto) Lymph # (Auto) Wilkinson # (Auto) Eos # (Auto) Baso # (Auto) Abs Immat Gran (auto) Absolute Neuts (auto) Absolute Nucleated RBC Nucleated RBC % (auto) Neutrophils % (Manual) Band Neutrophils % Lymphocytes % (Manual) Monocytes % (Manual) Abs Neuts (Manual) Lymphocytes # (Manual) Monocytes # (Manual) Nucleated RBCs Platelet Estimate Plt Morphology Comment RBC Morphology Polychromasia Spherocytes Ovalocytes Marla Cells Acanthocytes (Spur) Schistocytes Smear Tech's Comments PT 54.1 H D INR 4.4 H Fibrinogen D-Dimer High Sensitivty VBG pH 7.14 L* VBG pCO2 17 VBG pO2 120 VBG HCO3 6 L VBG O2 Saturation 99.0 VBG Base Excess -20.5 Sodium Potassium Chloride Carbon Dioxide Anion Gap BUN Creatinine Estim Creat Clear Calc Estimated GFR POC Glucose < 10 L* Fasting Glucose Lactic Acid Lactic Acid F/U @ 2Hr Calcium Phosphorus Magnesium Total Bilirubin AST ALT Alkaline Phosphatase Lactate Dehydrogenase Total Creatine Kinase Troponin I High Sens Total Protein Albumin TSH Urine Color Urine Appearance Urine pH Ur Specific [employer] Urine Protein Urine Glucose (UA) Urine Ketones Urine Blood Urine Nitrite Ur Leukocyte Esterase Urine RBC Urine WBC Ur Squamous Epith Cells Urine Bacteria Hyaline Casts Blood Type Antibody Screen Crossmatch Crossmatch ([facility]) 10/01/23 10/01/23 10/01/23 07:55 08:40 08:52 WBC 27.6 H RBC 3.49 L Hgb 8.4 L Hct 28.5 L MCV 81.7 D MCH 24.1 L MCHC 29.5 L RDW 19.2 H Plt Count 330 MPV 10.0 Immature Gran % (Auto) Cancelled Neut % (Auto) Cancelled Lymph % (Auto) Cancelled Wilkinson % (Auto) Cancelled Eos % (Auto) Cancelled Baso % (Auto) Cancelled Lymph # (Auto) Cancelled Wilkinson # (Auto) Cancelled Eos # (Auto) Cancelled Baso # (Auto) Cancelled Abs Immat Gran (auto) Cancelled Absolute Neuts (auto) Cancelled Absolute Nucleated RBC 0.230 H Nucleated RBC % (auto) 0.8 H Neutrophils % (Manual) 90 H Band Neutrophils % 5 Lymphocytes % (Manual) 4 L Monocytes % (Manual) 1 L Abs Neuts (Manual) 26.2 H Lymphocytes # (Manual) 1.1 L Monocytes # (Manual) 0.3 Nucleated RBCs 1 H Platelet Estimate NORMAL Plt Morphology Comment NOTED RBC Morphology NOTED Polychromasia 2+ (3-5) Spherocytes 2+ (3-5) Ovalocytes 1+ (5-14) Marla Cells 2+ (3-5) Acanthocytes (Spur) 3+ (>5) Schistocytes 3+ (>5) Smear Tech's Comments MANUAL DIFF PT 67.6 H D INR 5.5 H* Fibrinogen 271 D-Dimer High Sensitivty VBG pH VBG pCO2 VBG pO2 VBG HCO3 VBG O2 Saturation VBG Base Excess Sodium Potassium Chloride Carbon Dioxide Anion Gap BUN Creatinine Estim Creat Clear Calc Estimated GFR POC Glucose < 10 L* 158 H Fasting Glucose Lactic Acid Lactic Acid F/U @ 2Hr Calcium Phosphorus Magnesium Total Bilirubin AST ALT Alkaline Phosphatase Lactate Dehydrogenase Total Creatine Kinase Troponin I High Sens Total Protein Albumin TSH Urine Color Urine Appearance Urine pH Ur Specific [employer] Urine Protein Urine Glucose (UA) Urine Ketones Urine Blood Urine Nitrite Ur Leukocyte Esterase Urine RBC Urine WBC Ur Squamous Epith Cells Urine Bacteria Hyaline Casts Blood Type Antibody Screen Crossmatch Crossmatch ([facility]) 10/01/23 10/01/23 10/01/23 08:52 08:52 08:52 WBC RBC Hgb Hct MCV MCH MCHC RDW Plt Count MPV Immature Gran % (Auto) Neut % (Auto) Lymph % (Auto) Wilkinson % (Auto) Eos % (Auto) Baso % (Auto) Lymph # (Auto) Wilkinson # (Auto) Eos # (Auto) Baso # (Auto) Abs Immat Gran (auto) Absolute Neuts (auto) Absolute Nucleated RBC Nucleated RBC % (auto) Neutrophils % (Manual) Band Neutrophils % Lymphocytes % (Manual) Monocytes % (Manual) Abs Neuts (Manual) Lymphocytes # (Manual) Monocytes # (Manual) Nucleated RBCs Platelet Estimate Plt Morphology Comment RBC Morphology Polychromasia Spherocytes Ovalocytes [place] Cells Acanthocytes (Spur) Schistocytes Smear Tech's Comments PT INR Fibrinogen Cancelled D-Dimer High Sensitivty 6519 Cancelled VBG pH VBG pCO2 VBG pO2 VBG HCO3 VBG O2 Saturation VBG Base Excess Sodium 136 Potassium 4.0 Chloride 101 Carbon Dioxide 10 L* D Anion Gap 29 H BUN 31 H Creatinine 1.81 H Estim Creat Clear Calc 25.2 Estimated GFR 28 POC Glucose Fasting Glucose 242 H Lactic Acid 16.3 H* Cancelled Lactic Acid F/U @ 2Hr Calcium 8.7 D Phosphorus 6.0 H Magnesium 2.1 Total Bilirubin 2.5 H AST > 4202 H ALT 3494 H Alkaline Phosphatase 131 H Lactate Dehydrogenase 6677 H Total Creatine Kinase 465 H Troponin I High Sens 26.6 H Total Protein Albumin TSH Urine Color Urine Appearance Urine pH Ur Specific [employer] Urine Protein Urine Glucose (UA) Urine Ketones Urine Blood Urine Nitrite Ur Leukocyte Esterase Urine RBC Urine WBC Ur Squamous Epith Cells Urine Bacteria Hyaline Casts Blood Type Antibody Screen Crossmatch Crossmatch ([facility]) 10/01/23 10/01/23 10/01/23 08:52 09:00 09:04 WBC RBC Hgb Hct MCV MCH MCHC RDW Plt Count MPV Immature Gran % (Auto) Neut % (Auto) Lymph % (Auto) Wilkinson % (Auto) Eos % (Auto) Baso % (Auto) Lymph # (Auto) [place]kinson # (Auto) Eos # (Auto) Baso # (Auto) Abs Immat Gran (auto) Absolute Neuts (auto) Absolute Nucleated RBC Nucleated RBC % (auto) Neutrophils % (Manual) Band Neutrophils % Lymphocytes % (Manual) Monocytes % (Manual) Abs Neuts (Manual) Lymphocytes # (Manual) Monocytes # (Manual) Nucleated RBCs Platelet Estimate Plt Morphology Comment RBC Morphology Polychromasia Spherocytes Ovalocytes Marla Cells Acanthocytes (Spur) Schistocytes Smear Tech's Comments PT INR Fibrinogen D-Dimer High Sensitivty VBG pH 7.15 L* VBG pCO2 26 VBG pO2 48 VBG HCO3 9 L VBG O2 Saturation 61.0 VBG Base Excess -17.7 Sodium Potassium Chloride Carbon Dioxide Anion Gap BUN Creatinine Estim Creat Clear Calc Estimated GFR POC Glucose Fasting Glucose Lactic Acid Lactic Acid F/U @ 2Hr Calcium Phosphorus Magnesium Total Bilirubin AST ALT Alkaline Phosphatase Lactate Dehydrogenase Total Creatine Kinase Troponin I High Sens 26.7 H Total Protein 5.4 L Albumin 3.1 L TSH 1.72 Urine Color Dark Yellow Urine Appearance Cloudy Urine pH 5.5 Ur Specific [employer] 1.020 Urine Protein 100 (2+) H Urine Glucose (UA) 100 H Urine Ketones Negative Urine Blood Large (3+) H Urine Nitrite Negative Ur Leukocyte Esterase Negative Urine RBC 0-2 Urine WBC 0-5 Ur Squamous Epith Cells 0-2 Urine Bacteria None Seen Hyaline Casts >20 Blood Type AB Positive Antibody Screen NEGATIVE Crossmatch See Detail Crossmatch ([facility]) See Detail 10/01/23 10/01/23 10/01/23 10:05 10:35 11:53 WBC RBC Hgb Hct MCV MCH MCHC RDW Plt Count MPV Immature Gran % (Auto) Neut % (Auto) Lymph % (Auto) [place]kinson % (Auto) Eos % (Auto) Baso % (Auto) Lymph # (Auto) [place]kinson # (Auto) Eos # (Auto) Baso # (Auto) Abs Immat Gran (auto) Absolute Neuts (auto) Absolute Nucleated RBC Nucleated RBC % (auto) Neutrophils % (Manual) Band Neutrophils % Lymphocytes % (Manual) Monocytes % (Manual) Abs Neuts (Manual) Lymphocytes # (Manual) Monocytes # (Manual) Nucleated RBCs Platelet Estimate Plt Morphology Comment RBC Morphology Polychromasia Spherocytes Ovalocytes Marla Cells Acanthocytes (Spur) Schistocytes Smear Tech's Comments PT INR Fibrinogen D-Dimer High Sensitivty VBG pH 7.19 L* VBG pCO2 26 VBG pO2 42 VBG HCO3 10 L VBG O2 Saturation 50.0 VBG Base Excess -16.0 Sodium Potassium Chloride Carbon Dioxide Anion Gap BUN Creatinine Estim Creat Clear Calc Estimated GFR POC Glucose 174 H Fasting Glucose Lactic Acid Lactic Acid F/U @ 2Hr 14.6 H* Calcium Phosphorus Magnesium Total Bilirubin AST ALT Alkaline Phosphatase Lactate Dehydrogenase Total Creatine Kinase Troponin I High Sens Total Protein Albumin TSH Urine Color Urine Appearance Urine pH Ur Specific [employer] Urine Protein Urine Glucose (UA) Urine Ketones Urine Blood Urine Nitrite Ur Leukocyte Esterase Urine RBC Urine WBC Ur Squamous Epith Cells Urine Bacteria Hyaline Casts Blood Type Antibody Screen Crossmatch Crossmatch ([facility]) 10/01/23 12:38 WBC RBC Hgb Hct MCV MCH MCHC RDW Plt Count MPV Immature Gran % (Auto) Neut % (Auto) Lymph % (Auto) [place]kinson % (Auto) Eos % (Auto) Baso % (Auto) Lymph # (Auto) Wilkinson # (Auto) Eos # (Auto) Baso # (Auto) Abs Immat Gran (auto) Absolute Neuts (auto) Absolute Nucleated RBC Nucleated RBC % (auto) Neutrophils % (Manual) Band Neutrophils % Lymphocytes % (Manual) Monocytes % (Manual) Abs Neuts (Manual) Lymphocytes # (Manual) Monocytes # (Manual) Nucleated RBCs Platelet Estimate Plt Morphology Comment RBC Morphology Polychromasia Spherocytes Ovalocytes Marla Cells Acanthocytes (Spur) Schistocytes Smear Tech's Comments PT INR Fibrinogen D-Dimer High Sensitivty VBG pH VBG pCO2 VBG pO2 VBG HCO3 VBG O2 Saturation VBG Base Excess Sodium Potassium Chloride Carbon Dioxide Anion Gap BUN Creatinine Estim Creat Clear Calc Estimated GFR POC Glucose 171 H Fasting Glucose Lactic Acid Lactic Acid F/U @ 2Hr Calcium Phosphorus Magnesium Total Bilirubin AST ALT Alkaline Phosphatase Lactate Dehydrogenase Total Creatine Kinase Troponin I High Sens Total Protein Albumin TSH Urine Color Urine Appearance Urine pH Ur Specific [employer] Urine Protein Urine Glucose (UA) Urine Ketones Urine Blood Urine Nitrite Ur Leukocyte Esterase Urine RBC Urine WBC Ur Squamous Epith Cells Urine Bacteria Hyaline Casts Blood Type Antibody Screen Crossmatch Crossmatch ([facility]) Procedures Date of Service Date of Service: 10/01/23 Progress Note: A&P Assessment and plan (1) Hepatic failure: Status: Acute (2) Acute blood loss anemia: Status: Acute (3) Shock: Status: Acute Plan 1/ Multi organ failure with live dysfunction, acute hypoxemia and renal insufficiency. Unclear if this is being driven by underlying sepsis and what the source is. Not had any further GI bleeding since admission. Liver dysfucntion could also be due to ischemia and underperfusion. PLAN: 1/ Cont with ICU plan of care and work up 2/ hold on endoscopic eval at thi time given other concerns Time Spent With Patient Time: Total time managing care of this patient today ____ minutes. Quality Stroke Does the patient have a stroke diagnosis?: No VTE Prior VTE?: No VTE Risk Level:: Medical - moderate - high VTE Device Contraindication: N/A - Device Ordered VTE Drug Contraindication: Treatment Not Tolerated
[2023-10-01] MEDS: fentaNYL citrate/NS 1,000 MCG/100 ML PLAST..BAG 2.5 MCG IVCONT (15:08)
[2023-10-01] MEDS: LORazepam 2 MG/ML VIAL 0.5 MG IVPUSH (16:52)
--- NOTE | 2023-10-01 17:03 | P.DN_ITS ---
Discharge Sum: Prov Provider Primary care physician: Wilma Reyes MD Pronouncing clinician: Heydi Salgado Discharge Sum: Diag PCOD Cause of : Septic shock Contributing Factors (1) Hepatic failure: (2) Renal failure: (3) Acute blood loss anemia: (4) Atrial fibrillation with rapid ventricular response: Discharge Sum: Summary Date and Time Date of admission: 09/27/23 22:42 Date of : 10/01/23 Time of : 17:07 Summary Details: Ms. Sanz is a 67 Y F with hypertension, hyperlipidemia, atrial fibrillation on apixaban, and a prior left upper lobe mass, status post lobectomy, who initially presented to the ED on 09/28 with hematemesis, hematuria, and abnormal uterine bleeding, and found to have acute blood loss anemia, was transfused and admitted to medicine floor; on 10/01 AM, Ms. Sanz developed shock, complicated by multi-system organ failure, including renal and hepatic failure, and was transferred to the ICU, where Ms. Sanz was placed on vasopressor support and treated empirically for septic shock; unfortunately Ms. Sanz was encephalopathic; her healthcare proxy was contacted; Ms. Sanz was hemodyn amically and clinically unstable, requiring ongoing resuscitation; later that morning, Ms. Sanz was made DNR/DNI, and later made comfort-focused care; Ms. Sanz later that day with her family at bedside Additional Data Confirmation of as documented by pronouncing clinician: no pulse, no respirations, no heart sounds and pupils fixed and dilated Family: at bedside Attending/PCP notified?: Yes Attending physician: Heydi Salgado MD
--- NOTE | 2023-10-02 03:14 | PC.NURSE ---
*revised on 10/02/2023* pt around 0315am started having increased heart rate. 140 s-150's. Pt baseline is A-fib and is on telemetry. Med[facility]Tele [employer] contacted me to confirm pt's heart rate was high - 140bpm at this time. At 0412 [facility] [employer] states via message that pt was in RVR. Metoprolol 5mg in 50ml Sodium Chloride given and finished infusing at 0409. MD notified at 0415 letting Hospitalist know infusion was given and patient still sustaining 140-150bpm. Picture of PT's Heart Rate graph sent to MD at this time. Was given order to repeat metoprolol infusion; infusion finished at 0441. At this time, Hospitalist in room with this RN. Metoprolol 5mg IVP was given while Hospitalist and this RN watched telemetry harness on pt. No change in heart rate. Cardizem 10mg IVP given at 0514. Pulse now between 107-116 average. Labs were ordered. Result of labs showed Venous Blood pH at 7.13 - Critical result documented, Hospitalist contacted - new orders Hospitalist said to this pt that Patient needed to be transferred to higher care, preferably ICU/ New STAT order - 1 syringe of sodium bicarb given 8.4% 50meq IVP at 0622. An additional syringe of sodium bicarb was given to pt at 0637 - Hospitalist at bedside with this RN and Pt. Improvement Rn now in room at 0645 to set up cardizem drip while awaiting transfer to Med-Tele Pt was transferred to [facility] with drip running, Report given face to face to [facility] Nurse.
== END 2023-10-01 17:07 | disposition expired | DRG 377 ==
LOC: HO.ED 20:52 → HO.EDOVER 22:50 → HO.S3 09-28 07:48 → HO.IMC 10-01 07:10 → HO.ICU 10-01 08:06
PROVIDERS: Hospitalist; Internal Medicine Gastroenterology; Physician Assistant; Admitting Provider Internal Medicine; Emergency Provider Emergency Medicine; PCP Internal Medicine; Visit Provider Internal Medicine Critical Care Medicine
DX: K92.2 Gastrointestinal hemorrhage, unspecified (principal); G92.8 Other toxic encephalopathy; K72.00 Acute and subacute hepatic failure without coma; D68.32 Hemorrhagic disorder due to extrinsic circulating anticoagulants; D62 Acute posthemorrhagic anemia; I48.19 Other persistent atrial fibrillation; N17.9 Acute kidney failure, unspecified; R57.9 Shock, unspecified; N93.9 Abnormal uterine and vaginal bleeding, unspecified; R04.0 Epistaxis; I10 Essential (primary) hypertension; T45.515A Adverse effect of anticoagulants, initial encounter; E78.5 Hyperlipidemia, unspecified; J44.9 Chronic obstructive pulmonary disease, unspecified; Z66 Do not resuscitate; E87.6 Hypokalemia; Z90.2 Acquired absence of lung [part of]; Z87.891 Personal history of nicotine dependence; Z79.01 Long term (current) use of anticoagulants; Z79.02 Long term (current) use of antithrombotics/antiplatelets; Z79.899 Other long term (current) drug therapy
CPT/HCPCS: 36415; 70450; 71045; 76705; 80053; 80143; 80179; 81001; 81003; 82140; 82272; 82550; 82803; 82947; 83605; 83615; 83735; 84100; 84443; 84484; 85007; 85025; 85027; 85045; 85335; 85379; 85384; 85397; 85610; 85730; 86704; 86705; 86706; 86709; 86803; 86850; 86900; 86901; 86920; 86923; 87040; 87340; 93005; 99285; C1758; C9113; J0171; J0613; J1170; J1596; J2060; J2250; J2354; J2371; J2543; J2598; J2704; J3010; J3371; J3430; J7120; J7168; P9016; P9017; P9047

== ENCOUNTER → 2023-09-27 18:56 | Outpatient (BNV) | payer MEDICARE, MEDICAID, SELFPAY | PROVIDERS: Admitting Provider Internal Medicine; Emergency Provider Emergency Medicine; PCP Internal Medicine; Visit Provider Internal Medicine Cardiovascular Disease | DX: R94.31 Abnormal electrocardiogram [ECG] [EKG] (principal) | CPT/HCPCS: 93010 ==

== ENCOUNTER → 2023-09-27 22:42 | Outpatient (BNV) | payer MEDICARE, MEDICAID, SELFPAY | PROVIDERS: Admitting Provider Internal Medicine; Emergency Provider Emergency Medicine; PCP Internal Medicine; Visit Provider Internal Medicine Gastroenterology | DX: K72.90 Hepatic failure, unspecified without coma (principal); D62 Acute posthemorrhagic anemia; R57.9 Shock, unspecified | CPT/HCPCS: 99223; 99232 ==

== ENCOUNTER → 2023-09-27 22:42 | Outpatient (BNV) | payer MEDICARE, MEDICAID, SELFPAY | PROVIDERS: Admitting Provider Internal Medicine; Emergency Provider Emergency Medicine; PCP Internal Medicine; Visit Provider Internal Medicine Critical Care Medicine | DX: K72.90 Hepatic failure, unspecified without coma (principal); N19 Unspecified kidney failure; D62 Acute posthemorrhagic anemia; I48.91 Unspecified atrial fibrillation; R57.9 Shock, unspecified | CPT/HCPCS: 36556; 99238; 99497 ==

== ENCOUNTER → 2023-09-27 22:42 | Outpatient (BNV) | payer MEDICARE, MEDICAID, SELFPAY | PROVIDERS: Admitting Provider Internal Medicine; Emergency Provider Emergency Medicine; PCP Internal Medicine; Visit Provider Internal Medicine | DX: K92.2 Gastrointestinal hemorrhage, unspecified (principal); I48.91 Unspecified atrial fibrillation; D64.9 Anemia, unspecified; R79.89 Other specified abnormal findings of blood chemistry; I10 Essential (primary) hypertension; E78.5 Hyperlipidemia, unspecified; E87.6 Hypokalemia | CPT/HCPCS: 99223; 99233; 99499 ==